=== PATIENT | female | born 1935 | race Caucasian/White ===

== ENCOUNTER 2018-02-16 08:05 | Outpatient (CLI) | payer MEDICARE, OTHER, SELFPAY ==
[2018-02-16 08:48] LABS: Abs Immature Grans 0.01 k/cumm (0.0-0.09); Absolute Basophil Count 0.03 k/cumm (0.0-0.2); Absolute Eosinophil Count 0.13 k/cumm (0.0-0.7); Absolute Monocyte Count 0.44 k/cumm (0.11-0.7); Absolute Neutrophil Count 2.88 k/cumm (1.2-6.7); Basophils % 0.4; Eosinophils % 1.9; HCT 41.8 % (36.0-46.0); HGB 13.9 g/dL (12.0-15.5); Immature Grans % 0.1; Lymphocytes % 47.8; Mean Corp. HGB Concentration 33.3 g/dL (32.0-36.0); Mean Corpuscular Hemoglobin 29.6 pg (27.0-33.0); Mean Corpuscular Volume 89.1 fL (80-95); Mean Platelet Volume 8.9 fL (8.0-11.0); Monocytes % 6.6; Neutrophils % 43.2; Platelet Count 313 x1000/uL (130-400); RBC 4.69 m/cumm (4.00-5.20); RBC Distribution Width 12.4 % (11.7-14.6); White Blood Cell Count 6.69 k/cumm (4.4-10.8)
[2018-02-16 09:29] LABS: ALT 29 U/L (12-78); AST 18 U/L (15-37); Albumin 3.8 g/dL (3.4-5.0); Alkaline Phosphatase 61 U/L (46-116); Anion Gap 10.4 mmol/L (3-11); BUN 17 mg/dL (7-18); Bilirubin, Total 0.9 mg/dL (0.2-1.0); CO2 27.6 mmol/L (21.0-32.0); CREATININE 0.81 mg/dL (0.55-1.02); Calcium 9.3 mg/dL (8.5-10.1); Chloride 103 mmol/L (98-107); Cholesterol 146 mg/dL (50-200); Glucose 120 mg/dL (70-100); HDL Cholesterol 60 mg/dL (40-60); LDL CHOLESTEROL 68 mg/dL (<100); Sodium 141 mmol/L (136-145); Total Protein 7.1 g/dL (6.4-8.2); Triglyceride 116 mg/dL (30-150)
== END 2018-02-16 08:25 ==
PROVIDERS: PCP Family Medicine; Visit Provider Family Medicine
DX: D64.9 Anemia, unspecified (principal); E78.5 Hyperlipidemia, unspecified
CPT/HCPCS: 36415; 80053; 80061; 83721; 85025

== ENCOUNTER 2018-05-16 14:06 | Outpatient (CLI) | payer MEDICARE, OTHER, SELFPAY ==
--- NOTE | 2018-05-16 14:24 | DI.CT_ITS ---
SYMPTOM/DIAGNOSIS: HEMOPTYSIS, H/O LUNG CA, H/O MALIGNANT NEOPLASM, Z85.118,R04.2,R93.[address]: CT examination of the chest was performed with a bolus infusion of 70 cc's of Omnipaque 350. Patient reportedly has a history of left thoracotomy for lung carcinoma. Examination is compared with previous chest CT of 04/25/17. Images obtained through the upper abdomen show unremarkable appearance of visualized portions of liver, spleen, kidneys, adrenals and pancreas. There is bilateral apical pleural scarring, unchanged from the previous examination. Left upper lobe resection noted. Areas of nodularity seen in the left upper lung on the previous examination are more prominent on today's examination with the most salient area of new intrapulmonary nodularity now measuring about 11 by 5 mm. in diameter as compared to about 5 by 4 mm. in diameter on the previous examination. No gross new mediastinal adenopathy is seen. The largest mediastinal node is a 16 mm. pretracheal node which is nonspecific and unchanged from the previous examination. No pleural effusion is seen. No evidence of pulmonary embolic disease or other significant vascular abnormality. No new additional intrapulmonary lesions seen. CONCLUSION: Findings suggesting interval growth of recurrent disease in left lung in a patient who is status post apparent lobectomy for left lung carcinoma.
[2018-05-16] MEDS: Omnipaque 350 MG/ML 100 ML BTL IJ (16:31)
== END 2018-05-16 14:26 ==
PROVIDERS: PCP Family Medicine; Visit Provider Nurse Practitioner
DX: R04.2 Hemoptysis (principal); R91.8 Other nonspecific abnormal finding of lung field; Z90.2 Acquired absence of lung [part of]; Z85.118 Personal history of other malignant neoplasm of bronchus and lung
CPT/HCPCS: 71260; J3490

== ENCOUNTER 2018-06-29 00:52 | Outpatient (CLI) | payer MEDICARE, OTHER, SELFPAY ==
[2018-06-29 13:55] LABS: CREATININE 0.74 mg/dL (0.55-1.02)
== END 2018-06-29 01:12 ==
PROVIDERS: PCP Family Medicine; Visit Provider Radiology Radiation Oncology
DX: R04.2 Hemoptysis (principal); C34.90 Malignant neoplasm of unspecified part of unspecified bronchus or lung
CPT/HCPCS: 36415; 82565

== ENCOUNTER 2018-07-15 17:57 | Emergency (ER) | payer MEDICARE, OTHER, SELFPAY ==
[2018-07-15 18:07] VITALS: BP 165/73; PULSE 103; RESP 20; TEMP 36.3; O2SAT 94
--- NOTE | 2018-07-15 19:24 | W.ED.GENAD ---
Discharge Plan Disposition Patient Disposition: HOME Condition: Stable Discharge Details Chief Complaint: Sorethroat Clinical Impression: Acute streptococcal pharyngitis Primary Care Provider: Lele Cannon ED Provider: Bebe Roberto Home Meds and New Rx's Prescriptions: New amoxicillin 500 mg tablet 500 mg PO BID 10 Days Qty: 20 RF: 0 Continued omeprazole 20 mg capsule,delayed release(DR/EC) 20 mg PO DAILY 90 Days Qty: 90 RF: 3 atorvastatin 10 mg tablet 10 mg PO DAILY 90 Days Qty: 90 RF: 3 aspirin 81 MG tablet,delayed release (DR/EC) 81 mg PO DAILY RF: 0 Discharge Instructions Instructions: Pharyngitis (ED) Additional Instructions: Alternate Tylenol and Motrin as needed and directed for pain. Drink plenty of fluids get plenty of rest. Call the oncology office tomorrow morning to discuss whether you can receive your radiation treatment tomorrow. It is possible that you will be unable to receive this tomorrow due to your current strep throat infection. Return immediately to the emergency department with any worsening or new concerning symptoms. Discharge Data Discharge Physician: Bebe Roberto Medical Decision Making 82-year-old female with a history of lung cancer currently undergoing radiation therapy since last week who presents with dryness and postnasal drip in the back of her throat, and sore throat for 1 week, symptoms getting progressively worse. Patient denies any fever and states she has been eating and drinking normally without shortness of breath. Blood pressure hypertensive on arrival. Remainder of vitals within normal limits. Afebrile. Normal respiratory rate and oxygen saturation upon my evaluation. Patient appears nontoxic, speaking in full sentences, no drooling, no submandibular swelling. She has a mild posterior pharyngeal erythema but no exudates, uvula midline, no peritonsillar abscess. Lungs clear to auscultation. Rapid strep positive. Discussed with patient that due to her history, I would be concerned about possible worsening symptoms, but at this time she appears nontoxic and comfortable and reassuring that she has no fever and eating and drinking well. She states her next radiation treatment is planned for tomorrow. She is instructed that she possibly will have to hold on this treatment due to her current strep infection. Will give 1 dose of amoxicillin here, 1 dose for home, as well as prescription. She is instructed to call her oncology office tomorrow morning to discuss plan regarding further radiation treatments. She is instructed to return here immediately with any worsening or new concerning symptoms. Medical Records Medical records reviewed: Yes I reviewed the patient's medical records. Lab Data Lab results reviewed: Yes I reviewed the patient's lab results. Rapid strep positive. HPI General Mode of arrival: ambulatory. Date/Time Provider Initiated Documentation: 07/15/18 18:14. Limitations to Documentation: no limitations. Information obtained by: patient. HPI Narrative: Patient is an 82-year-old female who presents to the ED with a complaint of dryness in the back of her throat, postnasal drip, and sore throat for the past week, getting progressively worse. She states she has been taking Sudafed for symptoms. She also admits to cough with light yellow sputum. She states she has a history of lung cancer for which she is receiving radiation to her chest. She states her first radiation treatment was last Monday. She denies any fever, shortness of breath, chest pain he states she has been eating and drinking normally. Related Data Home Medications Medication Instructions Recorded Confirmed aspirin 81 mg PO DAILY tab 03/20/17 07/15/18 atorvastatin 10 mg tablet 10 mg PO DAILY 90 Days #90 tab 02/12/18 07/15/18 omeprazole 20 mg capsule,delayed 20 mg PO DAILY 90 Days #90 cap 02/12/18 07/15/18 release amoxicillin 500 mg PO BID 10 Days #20 tab 07/15/18 Previous Rx's Medication Instructions Recorded atorvastatin 10 mg tablet 10 mg PO DAILY 90 Days #90 tab 02/12/18 omeprazole 20 mg capsule,delayed 20 mg PO DAILY 90 Days #90 cap 02/12/18 release amoxicillin 500 mg PO BID 10 Days #20 tab 07/15/18 Allergies Allergy/AdvReac Type Severity Reaction Status Date / Time No Known Allergies Allergy Verified 07/15/18 18:14 General Stated Complaint: Sorethroat FARNAZ: 4 Review of Systems Review of Systems All systems reviewed & are unremarkable except as noted in HPI and below Constitutional Reports as per HPI, Denies chills and Denies fever(s) Eyes Denies blurry vision ENT Denies dizziness, Reports nasal congestion, Reports nasal discharge, Reports post nasal drip, Reports sore throat and Denies throat swelling Cardiovascular Denies chest pain and Denies dyspnea Respiratory Reports cough and Denies dyspnea Gastrointestinal Denies abdominal pain, Denies diarrhea and Denies vomiting Genitourinary Denies hematuria and Denies dysuria Musculoskeletal Denies back pain and Denies numbness Integumentary/Breasts Denies lesions and Denies rash Neurologic Denies dizziness, Denies focal weakness and Denies numbness Allergic/Immunologic Denies throat swelling [facility] Medical History Pulmonary nodule (Chronic 03/07/17) 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) Anemia (Resolved 03/07/17) Surgical History (L)Lingulectomy(Segmentectomy) (11/11/14) Appendectomy (~1969) Cholecystectomy (~2007) Family History Mother Stroke Father Stroke Sister Diabetes Social History Smoking/Tobacco Use Status: Former Tobacco Use Alcohol Intake: current Alcohol Intake frequency: holidays/special occasions only Alcohol type: beer and wine Drug use: Never Substance use type: does not use Housing: house Number of Children: 0 What type of physical activity do you participate in: regular exercise and other Details: dances Frequency: 3-4 times per week Seatbelt use: always Drive intox 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 Working smoke detector in home: Yes Fire extinguisher in home: Yes Carbon monox detector in home: Yes Do you feel safe at home: Yes Do you feel safe in your relationship?: Yes Exam Const General: cooperative and healthy appearing Orientation: alert and awake [facility] Head: normal to inspection Ears: hearing grossly normal bilaterally, external ears normal and other (Left TM normal to inspection, right TM obscured by cerumen) General nose exam: external nose normal Face and sinus: normal facial exam Mouth: oral mucosae normal Teeth and gingiva: dentition normal Throat: uvula midline, no peritonsillar masses and posterior oropharynx abnormal erythema; no cobblstoning, no edema and no exudates Eyes General: appearance normal, both eyes and all related structures Eyelids: eyelids normal EOM: EOM intact bilaterally Neck Neck: normal visual inspection Lymphatic: no lymphadenopathy noted Chest Chest: normal inspection of the chest Resp Effort & Inspection: normal respiratory effort and able to speak in complete sentences Auscultation: clear to auscultation bilaterally Cardio Rate: regular rate Rhythm: regular rhythm GI Inspection: normal to inspection Palpation: soft, not firm, no guarding, no hepatosplenomegaly, no masses and nontender Auscultation: normal bowel sounds Skin General skin exam: no rashes or lesions noted Neuro General: alert and awake Cognition: normal cognition Speech: speech normal Gait: normal gait Motor: muscle tone normal throughout Sensory Exam: no sensory deficits noted Extrem General: normal to inspection, full ROM and no edema Psych Appearance: grossly normal Mental Status: mental status grossly normal Speech and Movement: speech and movement normal Affect: normal affect Thought Process: normal Course Vital Signs Temperature 97.3 F L 07/15/18 18:07 Pulse 103 H 07/15/18 18:07 Respiratory Rate 20 07/15/18 18:07 Blood Pressure 165/73 H 07/15/18 18:07 Pulse Oximetry 94 L 07/15/18 18:07 Temperature 97.3 F L 07/15/18 18:07 Temperature Source Skin 07/15/18 18:07 Pulse 103 H 07/15/18 18:07 Respiratory Rate 20 07/15/18 18:07 Respiratory Effort 07/15/18 18:28 Blood Pressure 165/73 H 07/15/18 18:07 Blood Pressure Position Sitting 07/15/18 18:07 Pulse Oximetry 94 L 07/15/18 18:07 Oxygen Delivery Method Room Air 07/15/18 18:07 Oxygen Flow Rate 0 07/15/18 18:07 Pain Level 6 07/15/18 18:07 Lab/Test Results Lab/Test Results: POC Strep Test-RODRIGO(Rapid) Start: 07/15/18 18:17 Freq: Status: Active Protocol: Document 07/15/18 18:23 (Rec: 07/15/18 18:23 [email or web address]) Strep test-RODRIGO(Rapid)-POC POC-Strep test-RODRIGO (Rapid) Positive POC-Strep test-RODRIGO (Rapid) Positive
--- NOTE | 2018-07-15 19:29 | ED.GENADUL_ITS ---
Discharge Plan Disposition Patient Disposition: HOME Condition: Stable Discharge Details Chief Complaint: Sorethroat Clinical Impression: Acute streptococcal pharyngitis Primary Care Provider: Lele Cannon ED Provider: Bebe Roberto Home Meds and New Rx's Prescriptions: New amoxicillin 500 mg tablet 500 mg PO BID 10 Days Qty: 20 RF: 0 Continued omeprazole 20 mg capsule,delayed release(DR/EC) 20 mg PO DAILY 90 Days Qty: 90 RF: 3 atorvastatin 10 mg tablet 10 mg PO DAILY 90 Days Qty: 90 RF: 3 aspirin 81 MG tablet,delayed release (DR/EC) 81 mg PO DAILY RF: 0 Discharge Instructions Instructions: Pharyngitis (ED) Additional Instructions: Alternate Tylenol and Motrin as needed and directed for pain. Drink plenty of fluids get plenty of rest. Call the oncology office tomorrow morning to discuss whether you can receive your radiation treatment tomorrow. It is possible that you will be unable to receive this tomorrow due to your current strep throat infection. Return immediately to the emergency department with any worsening or new concerning symptoms. Discharge Data Discharge Physician: Bebe Roberto Medical Decision Making 82-year-old female with a history of lung cancer currently undergoing radiation therapy since last week who presents with dryness and postnasal drip in the back of her throat, and sore throat for 1 week, symptoms getting progressively worse. Patient denies any fever and states she has been eating and drinking normally without shortness of breath. Blood pressure hypertensive on arrival. Remainder of vitals within normal limits. Afebrile. Normal respiratory rate and oxygen saturation upon my evaluation. Patient appears nontoxic, speaking in full sentences, no drooling, no submandibular swelling. She has a mild posterior pharyngeal erythema but no exudates, uvula midline, no peritonsillar abscess. Lungs clear to auscultation. Rapid strep positive. Discussed with patient that due to her history, I would be concerned about possible worsening symptoms, but at this time she appears nontoxic and comfortable and reassuring that she has no fever and eating and drinking well. She states her next radiation treatment is planned for tomorrow. She is instructed that she possibly will have to hold on this treatment due to her current strep infection. Will give 1 dose of amoxicillin here, 1 dose for home, as well as prescription. She is instructed to call her oncology office tomorrow morning to discuss plan regarding further radiation treatments. She is instructed to return here immediately with any worsening or new concerning symptoms. Medical Records Medical records reviewed: Yes I reviewed the patient's medical records. Lab Data Lab results reviewed: Yes I reviewed the patient's lab results. Rapid strep positive. HPI General Mode of arrival: ambulatory . Date/Time Provider Initiated Documentation: 07/15/18 18:14 . Limitations to Documentation: no limitations . Information obtained by: patient . HPI Narrative: Patient is an 82-year-old female who presents to the ED with a complaint of dryness in the back of her throat, postnasal drip, and sore throat for the past week, getting progressively worse. She states she has been taking Sudafed for symptoms. She also admits to cough with light yellow sputum. She states she has a history of lung cancer for which she is receiving radiation to her chest. She states her first radiation treatment was last Monday. She denies any fever, shortness of breath, chest pain he states she has been eating and drinking normally. Related Data Home Medications Medication Instructions Recorded Confirmed aspirin 81 mg PO DAILY tab 03/20/17 07/15/18 atorvastatin 10 mg tablet 10 mg PO DAILY 90 Days #90 tab 02/12/18 07/15/18 omeprazole 20 mg capsule,delayed 20 mg PO DAILY 90 Days #90 cap 02/12/18 07/15/18 release amoxicillin 500 mg PO BID 10 Days #20 tab 07/15/18 Previous Rx's Medication Instructions Recorded atorvastatin 10 mg tablet 10 mg PO DAILY 90 Days #90 tab 02/12/18 omeprazole 20 mg capsule,delayed 20 mg PO DAILY 90 Days #90 cap 02/12/18 release amoxicillin 500 mg PO BID 10 Days #20 tab 07/15/18 Allergies Allergy/AdvReac Type Severity Reaction Status Date / Time No Known Allergies Allergy Verified 07/15/18 18:14 General Stated Complaint: Sorethroat FARNAZ: 4 Review of Systems Review of Systems All systems reviewed & are unremarkable except as noted in HPI and below Constitutional Reports as per HPI, Denies chills and Denies fever(s) Eyes Denies blurry vision ENT Denies dizziness, Reports nasal congestion, Reports nasal discharge, Reports post nasal drip, Reports sore throat and Denies throat swelling Cardiovascular Denies chest pain and Denies dyspnea Respiratory Reports cough and Denies dyspnea Gastrointestinal Denies abdominal pain, Denies diarrhea and Denies vomiting Genitourinary Denies hematuria and Denies dysuria Musculoskeletal Denies back pain and Denies numbness Integumentary/Breasts Denies lesions and Denies rash Neurologic Denies dizziness, Denies focal weakness and Denies numbness Allergic/Immunologic Denies throat swelling [facility] Medical History Pulmonary nodule (Chronic 03/07/17) 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) Anemia (Resolved 03/07/17) Surgical History (L)Lingulectomy(Segmentectomy) (11/11/14) Appendectomy (~1969) Cholecystectomy (~2007) Family History Mother Stroke Father Stroke Sister Diabetes Social History Smoking/Tobacco Use Status: Former Tobacco Use Alcohol Intake: current Alcohol Intake frequency: holidays/special occasions only Alcohol type: beer and wine Drug use: Never Substance use type: does not use Housing: house Number of Children: 0 What type of physical activity do you participate in: regular exercise and other Details: dances Frequency: 3-4 times per week Seatbelt use: always Drive 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 Working smoke detector in home: Yes Fire extinguisher in home: Yes Carbon monox detector in home: Yes Do you feel safe at home: Yes Do you feel safe in your relationship?: Yes Exam Const General: cooperative and healthy appearing Orientation: alert and awake [facility] Head: normal to inspection Ears: hearing grossly normal bilaterally, external ears normal and other (Left TM normal to inspection, right TM obscured by cerumen) General nose exam: external nose normal Face and sinus: normal facial exam Mouth: oral mucosae normal Teeth and gingiva: dentition normal Throat: uvula midline, no peritonsillar masses and posterior oropharynx abnormal erythema; no cobblstoning, no edema and no exudates Eyes General: appearance normal, both eyes and all related structures Eyelids: eyelids normal EOM: EOM intact bilaterally Neck Neck: normal visual inspection Lymphatic: no lymphadenopathy noted Chest Chest: normal inspection of the chest Resp Effort & Inspection: normal respiratory effort and able to speak in complete sentences Auscultation: clear to auscultation bilaterally Cardio Rate: regular rate Rhythm: regular rhythm GI Inspection: normal to inspection Palpation: soft, not firm, no guarding, no hepatosplenomegaly, no masses and nontender Auscultation: normal bowel sounds Skin General skin exam: no rashes or lesions noted Neuro General: alert and awake Cognition: normal cognition Speech: speech normal Gait: normal gait Motor: muscle tone normal throughout Sensory Exam: no sensory deficits noted Extrem General: normal to inspection, full ROM and no edema Psych Appearance: grossly normal Mental Status: mental status grossly normal Speech and Movement: speech and movement normal Affect: normal affect Thought Process: normal Course Vital Signs Temperature 97.3 F L 07/15/18 18:07 Pulse 103 H 07/15/18 18:07 Respiratory Rate 20 07/15/18 18:07 Blood Pressure 165/73 H 07/15/18 18:07 Pulse Oximetry 94 L 07/15/18 18:07 Temperature 97.3 F L 07/15/18 18:07 Temperature Source Skin 07/15/18 18:07 Pulse 103 H 07/15/18 18:07 Respiratory Rate 20 07/15/18 18:07 Respiratory Effort 07/15/18 18:28 Blood Pressure 165/73 H 07/15/18 18:07 Blood Pressure Position Sitting 07/15/18 18:07 Pulse Oximetry 94 L 07/15/18 18:07 Oxygen Delivery Method Room Air 07/15/18 18:07 Oxygen Flow Rate 0 07/15/18 18:07 Pain Level 6 07/15/18 18:07 Lab/Test Results Lab/Test Results: POC Strep Test-RODRIGO(Rapid) Start: 07/15/18 18:17 Freq: Status: Active Protocol: Document 07/15/18 18:23 (Rec: 07/15/18 18:23 [email or web address]) Strep test-RODRIGO(Rapid)-POC POC-Strep test-RODRIGO (Rapid) Positive POC-Strep test-RODRIGO (Rapid) Positive
[2018-07-15] MEDS: Amoxicillin 500 MG CAP PO ×2 (19:50)
[2018-07-15 19:51] VITALS: BP 165/73; PULSE 90; RESP 20; TEMP 36.7; O2SAT 96
== END 2018-07-15 19:58 | disposition home or self-care (01) ==
PROVIDERS: Emergency Provider Physician Assistant; PCP Family Medicine
DX: J02.0 Streptococcal pharyngitis (principal); C34.10 Malignant neoplasm of upper lobe, unspecified bronchus or lung; Z92.3 Personal history of irradiation
CPT/HCPCS: 87880; 99283

== ENCOUNTER 2018-12-17 10:27 | Outpatient (CLI) | payer MEDICARE, OTHER, SELFPAY ==
[2018-12-17 11:45] LABS: Estimated GFR 59.94 (mL/min/1.73m2)
== END 2018-12-17 10:47 ==
PROVIDERS: PCP Family Medicine; Visit Provider Radiology Radiation Oncology
DX: C34.92 Malignant neoplasm of unspecified part of left bronchus or lung (principal)
CPT/HCPCS: 36415; 82565

== ENCOUNTER 2018-12-18 00:15 | Outpatient (CLI) | payer MEDICARE, OTHER, SELFPAY ==
[2018-12-18] MEDS: Omnipaque 350 MG/ML 100 ML BTL IJ (09:14)
--- NOTE | 2018-12-18 09:15 | DI.CT_ITS ---
SYMPTOM/DIAGNOSIS: RECURRENT NON SMALL CELL LUNG CANCER C34.90, RESTAGING CT CHEST S/P LINGULA RESECTION. CHEST CT: 12/18 CT examination of the chest was performed with a bolus infusion of 70 cc Omnipaque 350. The patient reportedly has a history of non small cell lung carcinoma and examination is compared with most recent previous CT of 05/16/2018. Images obtained through the upper abdomen show unremarkable appearance of visualized portions of adrenals, kidneys and liver except for borderline biliary dilatation, this is presumably related to prior cholecystectomy. Spleen shows subcapsular decreased attenuation unchanged from the previous study. The patient has reportedly had a prior lingular resection. In comparison with the examination of 05/16/18 there are increasing areas of consolidation in the left lung laterally, in the mid and upper lung region. Pleural based radiodensities are also noted which were not present on the previous examination. Correlation requested regarding any interval surgery since 05/16/18. The findings as described may represent infectious process or multi centric recurrent disease. No gross pleural effusions seen. No new right pulmonary mass. Mild pre-tracheal and AP window adenopathy again noted, unchanged from previous examination. No evidence of pulmonary embolic disease or other major vascular abnormality. No axillary or supraclavicular adenopathy. Tracheobronchial tree appears intact. CONCLUSION: 1. Stable mild mediastinal adenopathy most marked in AP window and pretracheal nodes 2. Increasing multi centric consolidation atelectasis and/or scarring with new pleural densities also noted in left lung in a patient who is status post resection of non small cell lung carcinoma.
== END 2018-12-18 00:35 ==
PROVIDERS: PCP Family Medicine; Visit Provider Radiology Radiation Oncology
DX: C34.92 Malignant neoplasm of unspecified part of left bronchus or lung (principal); R59.0 Localized enlarged lymph nodes; R91.8 Other nonspecific abnormal finding of lung field; Z90.2 Acquired absence of lung [part of]
CPT/HCPCS: 71260; J3490

== ENCOUNTER 2019-01-18 11:35 | Emergency (ER) | payer MEDICARE, OTHER, SELFPAY ==
[2019-01-18 11:39] VITALS: BP 176/88; PULSE 114; RESP 28; TEMP 36.3; O2SAT 95
--- NOTE | 2019-01-18 11:45 | W.ED.GENAD ---
Discharge Plan Disposition Patient Disposition: HOME Condition: Improving Discharge Details Chief Complaint: SOB Clinical Impression: Acute bronchitis, Sinusitis Primary Care Provider: Lele Cannon ED Provider: Bebe Roberto Home Meds and New Rx's Prescriptions: New prednisone 20 mg tablet See Rx Instructions .ROUTE .COMPLEX Qty: 12 RF: 0 doxycycline hyclate 100 mg tablet 100 mg PO BID 7 Days Qty: 14 RF: 0 Continued omeprazole 20 mg capsule,delayed release(DR/EC) 20 mg PO DAILY 90 Days Qty: 90 RF: 3 atorvastatin 10 mg tablet 10 mg PO DAILY 90 Days Qty: 90 RF: 3 aspirin 81 MG tablet,delayed release (DR/EC) 81 mg PO DAILY RF: 0 Discharge Instructions Instructions: Sinusitis (ED), Acute Bronchitis (ED) Additional Instructions: Use the albuterol inhaler as needed and directed for shortness of breath or wheezing. Take the steroids until finished. If you have no relief or worsening of symptoms in the next 2 days, start the antibiotics. You can also try [id number] saline nasal spray or sinus rinse kit. Follow-up with your primary care doctor in 1 week for reevaluation. Return to the emergency department he develop any worsening or new concerning symptoms. Discharge Data Discharge Physician: Bebe Roberto Medical Decision Making 1145 -- 83-year-old female with a history of lung cancer treated with surgery and radiation, last radiation in July presents with shortness of breath for the past week, worse since last night along with cough with white sputum production and sinus congestion. Denies any known fever. Heart rate 110s on arrival, now within normal limits. Afebrile. She appears in no acute respiratory distress. She has scattered wheezing throughout. No leg swelling. Differential diagnosis includes COPD, bronchitis, pneumonia, PE. Presentation does not appear consistent with ACS. EKG notes a rate of 101, sinus, PVCs with no acute ST ischemic changes. Will place an IV, labs, CT chest and give a DuoNeb and Solu-Medrol and reassess. 1445 --labs and imaging reviewed. White blood cell count 7. Normal electrolytes. Troponin negative. BNP within normal limits. CT chest notes findings consistent with previous left upper lobectomy but no PE or pneumonia. Patient states she feels much better. Vitals within normal limits. O2 sat 93% on room air. She has no complaints of difficulty breathing at this time. She is requesting to go home. We will send home with a prescription for prednisone as well as given albuterol inhaler. Discussed that her symptoms do not appear bacterial in nature, but considering her history and complaints, we will send with a prescription for doxycycline to start in the next 2 days if symptoms do not improve or worsen. She is advised to follow-up with her primary care doctor for reevaluation and to return here if worse. Medical Records Medical records reviewed: Yes I reviewed the patient's medical records. Imaging Data Radiologic Study: Radiologist's impression: CT CHEST PE CTA CLINICAL HISTORY: cough, SOB, r/o PE/pneumonia. TECHNIQUE: PE CT was performed with an intravenous injection of 70 cc of Omnipaque 350. COMPARISON: CT CHEST W from 12/18/2018 FINDINGS: Compared with the prior examination, again noted is the left upper lobe scarring and postsurgical changes in connection with removal of a non-small cell carcinoma. There has been no change in the status of the mediastinal lymph nodes. Emphysematous changes are noted throughout the lungs and there are ground-glass densities in the lung bases, which is a nonspecific finding. There is no evidence of pulmonary embolic disease. There is no pleural effusion. Heart is not enlarged. Diffuse atherosclerotic changes are noted involving the aorta without evidence of an aneurysm or dissection. There is no evidence of an acute bony abnormality and mild degenerative changes involving the dorsal spine are noted. IMPRESSION: No evidence of PE. No evidence of acute cardiopulmonary disease in this patient who is status post left upper lobe surgery for removal of a non-small cell carcinoma. Lab Data Lab results reviewed: Yes I reviewed the patient's lab results. Labs: Laboratory Tests Range/Units 01/18/19 01/18/19 01/18/19 11:45 11:45 11:45 WBC (4.4-10.8) k/cumm 7.41 RBC (4.00-5.20) m/cumm 5.06 Hgb (12.0-15.5) g/dL 14.7 Hct (36.0-46.0) % 44.9 MCV (80-95) fL 88.7 MCH (27.0-33.0) pg 29.1 MCHC (32.0-36.0) g/dL 32.7 RDW (11.7-14.6) % 12.9 Plt Count (130-400) x1000/uL 191 MPV (8.0-11.0) fL 11.2 H Immature Gran % 0.1 Neutrophils % 52.9 Lymphocytes % 37.0 Monocytes % 7.8 Eosinophils % 1.8 Basophils % 0.4 Absolute Neutrophils (1.2-6.7) k/cumm 3.92 Absolute Lymphocytes (1.2-3.4) k/cumm 2.74 Absolute Monocytes (0.11-0.7) k/cumm 0.58 Absolute Eosinophils (0.0-0.7) k/cumm 0.13 Absolute Basophils (0.0-0.2) k/cumm 0.03 Sodium (136-145) mmol/L 141 Potassium (3.5-5.1) mmol/L 3.7 Chloride (98-107) mmol/L 100 Carbon Dioxide (21.0-32.0) mmol/L 31.1 Anion Gap (3-11) mmol/L 9.9 BUN (7-18) mg/dL 14 Creatinine (0.55-1.02) mg/dL 0.78 Estimated GFR/1.73 m2 (mL/min/1.73m2) >= 60.00 Glucose (70-100) mg/dL 137 H Calcium (8.5-10.1) mg/dL 9.1 Magnesium (1.8-2.4) mg/dL 1.7 L Total Bilirubin (0.2-1.0) mg/dL 0.8 AST (15-37) U/L 21 ALT (14-59) U/L 25 Alkaline Phosphatase (46-116) U/L 89 Troponin I (0.00-0.06) ng/mL < 0.05 NT-Pro-B Natriuret Pep ( - 299) pg/mL 69 Total Protein (6.4-8.2) g/dL 8.6 H Albumin (3.4-5.0) g/dL 4.5 ECG Data Attestation: I personally reviewed and interpreted this ECG (s) as follows: Interpretation: Rate of 101, sinus, PVCs. No acute ST elevation or depression. ID 128. QTc 441. QRS 88. HPI General Mode of arrival: ambulatory. Date/Time Provider Initiated Documentation: 01/18/19 11:41. Limitations to Documentation: no limitations. Information obtained by: patient. HPI Narrative: Pt is a 83yo F with a history of lung cancer treated with surgery and radiation who presents with shortness of breath for the past week, worse since last night. She also admits to cough productive of white sputum. She also admits to sinus congestion and clear nasal discharge. She states her shortness of breath is worse with exertion. She denies any known fever, nausea, vomiting, chest pain, leg pain or swelling, recent travel or recent surgery. She states her last radiation treatment was in July and she is followed by Dr. Hartley. She denies any shortness of breath or chest pain at present. She denies any history of previous chemotherapy. Related Data Home Medications Medication Instructions Recorded Confirmed aspirin 81 mg PO DAILY tab 03/20/17 01/18/19 atorvastatin 10 mg tablet 10 mg PO DAILY 90 Days #90 tab 02/12/18 01/18/19 omeprazole 20 mg capsule,delayed 20 mg PO DAILY 90 Days #90 cap 02/12/18 01/18/19 release doxycycline hyclate 100 mg PO BID 7 Days #14 tab 01/18/19 prednisone See Rx Instructions .ROUTE 01/18/19 .COMPLEX #12 tab Previous Rx's Medication Instructions Recorded atorvastatin 10 mg tablet 10 mg PO DAILY 90 Days #90 tab 02/12/18 omeprazole 20 mg capsule,delayed 20 mg PO DAILY 90 Days #90 cap 02/12/18 release doxycycline hyclate 100 mg PO BID 7 Days #14 tab 01/18/19 prednisone See Rx Instructions .ROUTE 01/18/19 .COMPLEX #12 tab Allergies Allergy/AdvReac Type Severity Reaction Status Date / Time No Known Allergies Allergy Verified 01/18/19 11:52 General Stated Complaint: SOB FARNAZ: 2 Review of Systems Review of Systems ROS Unobtainable: All systems reviewed & are unremarkable except as noted in HPI and below Constitutional Constitutional: Reports as per HPI, Denies chills and Denies fever(s) Eyes Eyes: Denies blurry vision ENT Ears, Nose, Mouth, and Throat: Denies dizziness, Reports nasal congestion, Reports nasal discharge, Reports sinus pain, Denies sore throat and Denies throat swelling Cardiovascular Cardiovascular: Denies chest pain and Reports dyspnea Respiratory Respiratory: Reports cough and Reports dyspnea Gastrointestinal Gastrointestinal: Denies abdominal pain, Denies diarrhea and Denies vomiting Genitourinary Genitourinary: Denies hematuria and Denies dysuria Musculoskeletal Musculoskeletal: Denies back pain and Denies numbness Integumentary/Breasts Skin/Breast: Denies lesions and Denies rash Neurologic Neurologic: Denies dizziness, Denies focal weakness and Denies numbness Allergic/Immunologic Allergic/Immunologic: Denies throat swelling [facility] Social History Smoking/Tobacco Use Status: Former Tobacco Use Alcohol Intake: current Alcohol Intake frequency: holidays/special occasions only Alcohol type: beer and wine Drug use: Never Substance use type: does not use Housing: house Number of Children: 0 What type of physical activity do you participate in: regular exercise and other Details: dances Frequency: 3-4 times per week Seatbelt use: always Drive intox or ride w/intox auto carrier driver: No Working smoke detector in home: Yes Fire extinguisher in home: Yes Carbon monox detector in home: Yes Do you feel safe at home: Yes Do you feel safe in your relationship?: Yes Exam Const General: cooperative, healthy appearing and no acute distress HENMT Head: normal to inspection Ears: hearing grossly normal bilaterally and TM's normal bilaterally General nose exam: external nose normal Face and sinus: normal facial exam and sinuses nontender Mouth: oral mucosae normal Throat: posterior oropharynx normal Eyes General: appearance normal, both eyes and all related structures Pupils: PERRL EOM: EOM intact bilaterally Neck Neck: normal visual inspection and No submandibular swelling Lymphatic: no lymphadenopathy noted Chest Chest: normal inspection of the chest and no tenderness Resp Effort & Inspection: normal respiratory effort and able to speak in complete sentences Auscultation: no crackles, no rales, no rhonchi and wheezes scattered wheezes Cardio Rate: tachycardic Rhythm: regular rhythm GI Inspection: normal to inspection Palpation: soft, not firm, not rigid and nontender Auscultation: normal bowel sounds Skin General skin exam: no rashes or lesions noted Neuro General: alert, awake and oriented x3 Cognition: normal cognition Speech: speech normal Motor: muscle tone normal throughout Sensory Exam: no sensory deficits noted Extrem General: normal to inspection, full ROM, normal capillary refill, no calf tenderness bilaterally and no edema Psych Appearance: grossly normal Mental Status: mental status grossly normal Speech and Movement: speech and movement normal Affect: normal affect Course Vital Signs Vital signs: Vital Signs Temperature 97.3 F L 01/18/19 11:39 Pulse 114 H 01/18/19 11:39 Respiratory Rate 28 H 01/18/19 11:39 Blood Pressure 176/88 H 01/18/19 11:39 Pulse Oximetry 95 01/18/19 11:39 Temperature 97.3 F L 01/18/19 11:39 Pulse 114 H 01/18/19 11:39 Respiratory Rate 28 H 01/18/19 11:39 Blood Pressure 176/88 H 01/18/19 11:39 Pulse Oximetry 95 01/18/19 11:39 Oxygen Delivery Method Room Air 01/18/19 11:39 Oxygen Flow Rate 0 01/18/19 11:39 Pain Level 0 01/18/19 11:39
[2019-01-18 11:50] VITALS: RESP 16
[2019-01-18 12:06] LABS: Abs Immature Grans 0.01 k/cumm (0.0-0.09); Absolute Basophil Count 0.03 k/cumm (0.0-0.2); Absolute Eosinophil Count 0.13 k/cumm (0.0-0.7); Absolute Lymphocyte Count 2.74 k/cumm (1.2-3.4); Absolute Monocyte Count 0.58 k/cumm (0.11-0.7); Absolute Neutrophil Count 3.92 k/cumm (1.2-6.7); Basophils % 0.4; Eosinophils % 1.8; HCT 44.9 % (36.0-46.0); HGB 14.7 g/dL (12.0-15.5); Immature Grans % 0.1; Mean Corp. HGB Concentration 32.7 g/dL (32.0-36.0); Mean Corpuscular Hemoglobin 29.1 pg (27.0-33.0); Mean Corpuscular Volume 88.7 fL (80-95); Mean Platelet Volume 11.2 fL (8.0-11.0); Monocytes % 7.8; Neutrophils % 52.9; Platelet Count 191 x1000/uL (130-400); RBC 5.06 m/cumm (4.00-5.20); RBC Distribution Width 12.9 % (11.7-14.6); White Blood Cell Count 7.41 k/cumm (4.4-10.8)
--- NOTE | 2019-01-18 12:12 | DI.CT_ITS ---
EXAM: CT CHEST PE CTA CLINICAL HISTORY: cough, SOB, r/o PE/pneumonia. TECHNIQUE: PE CT was performed with an intravenous injection of 70 cc of Omnipaque 350. COMPARISON: CT CHEST W from 12/18/2018 FINDINGS: Compared with the prior examination, again noted is the left upper lobe scarring and postsurgical lori nges in connection with removal of a non-small cell carcinoma. There has been no change in the statu s of the mediastinal lymph nodes. Emphysematous changes are noted throughout the lungs and there are ground-glass densities in the lung bases, which is a nonspecific finding. There is no evidence of pu lmonary embolic disease. There is no pleural effusion. Heart is not enlarged. Diffuse atherosclero tic changes are noted involving the aorta without evidence of an aneurysm or dissection. There is no evidence of an acute bony abnormality and mild degenerative changes involving the dorsal spine are n oted. IMPRESSION: No evidence of PE. No evidence of acute cardiopulmonary disease in this patient who is status post l eft upper lobe surgery for removal of a non-small cell carcinoma.
[2019-01-18 12:31] LABS: Magnesium 1.7 mg/dL (1.8-2.4); NT-proBNP 69 pg/mL
[2019-01-18 12:33] LABS: Troponin I < 0.05 ng/mL (0.00-0.06)
[2019-01-18 12:37] VITALS: RESP 1
[2019-01-18] MEDS: Albuterol/Ipratropium 3 ML UPD VIAL UPD (12:37)
[2019-01-18] MEDS: methylPREDNISolone SUCC 125 MG VIAL IVP (12:37)
[2019-01-18 12:50] LABS: ALT 25 U/L (14-59); AST 21 U/L (15-37); Albumin 4.5 g/dL (3.4-5.0); Alkaline Phosphatase 89 U/L (46-116); Anion Gap 9.9 mmol/L (3-11); BUN 14 mg/dL (7-18); Bilirubin, Total 0.8 mg/dL (0.2-1.0); CO2 31.1 mmol/L (21.0-32.0); CREATININE 0.78 mg/dL (0.55-1.02); Calcium 9.1 mg/dL (8.5-10.1); Chloride 100 mmol/L (98-107); Glucose 137 mg/dL (70-100); Potassium 3.7 mmol/L (3.5-5.1); Sodium 141 mmol/L (136-145); Total Protein 8.6 g/dL (6.4-8.2)
[2019-01-18] MEDS: Omnipaque 350 MG/ML 100 ML BTL IJ (13:48)
--- NOTE | 2019-01-18 14:53 | NUR.NOTE ---
Nursing Note: see printed flow sheet for vitals unable to import. stable.
[2019-01-18 14:54] VITALS: BP 137/80; PULSE 99; RESP 16; O2SAT 94
[2019-01-18] MEDS: Albuterol HFA 8 GM 60 PUFF INH IH (15:23)
--- NOTE | 2019-01-18 15:31 | NUR.NOTE ---
Nursing Note: provided pt with a spacer and instructions.
== END 2019-01-18 15:34 | disposition home or self-care (01) ==
PROVIDERS: Emergency Provider Physician Assistant; PCP Family Medicine
DX: J20.9 Acute bronchitis, unspecified (principal); J01.90 Acute sinusitis, unspecified; C34.92 Malignant neoplasm of unspecified part of left bronchus or lung; Z87.891 Personal history of nicotine dependence
CPT/HCPCS: 36415; 71275; 80053; 93005; 94640; 96374; 99285; 83735; 83880; 84484; 85025; 93010; J2930; J3490; J7620

== ENCOUNTER 2019-02-18 12:20 | Outpatient (REF) | payer MEDICARE, OTHER, SELFPAY ==
--- NOTE | 2019-02-18 10:44 | SKI_PTH ---
PATIENT: Qing Bailye LOC: [facility] U#:[id number] AGE/SX: 83/F ROOM: RE02/18/[address]: Devan Shah DO : 1935 BED: DIS: 02/18/2019 SPEC #: [id number] RECD: 02/18/19 18:31 STATUS: SRIKANTH REQ #: [id number] STEPHENIE: 02/18/19 10:[address]: Devan Shah DEPT: Surgical Specimen RECD BY: Violet Lock ENTERED: 02/18/19 18:32 SP TYPE: DONALDO COBB DR: Lele Cannon DO Tissues: 1 - SKIN BIOPSY(SHAVE/PUNCH) Procedures: SKIN LEVEL 4 Comments: [id number]
== END 2019-02-18 12:40 ==
LOC: LBN 12:20
PROVIDERS: PCP Family Medicine; Visit Provider Otolaryngology Otolaryngology/Facial Plastic Surgery
DX: C44.41 Basal cell carcinoma of skin of scalp and neck (principal)
CPT/HCPCS: 88305

== ENCOUNTER 2019-03-22 12:36 | Outpatient (CLI) | payer MEDICARE, OTHER, SELFPAY ==
[2019-03-22 13:26] LABS: Abs Immature Grans 0.01 k/cumm (0.0-0.09); Absolute Basophil Count 0.02 k/cumm (0.0-0.2); Absolute Lymphocyte Count 2.55 k/cumm (1.2-3.4); Absolute Monocyte Count 0.53 k/cumm (0.11-0.7); Absolute Neutrophil Count 3.29 k/cumm (1.2-6.7); Basophils % 0.3; Eosinophils % 1.5; HCT 41.6 % (36.0-46.0); HGB 13.5 g/dL (12.0-15.5); Immature Grans % 0.2; Lymphocytes % 39.2; Mean Corp. HGB Concentration 32.5 g/dL (32.0-36.0); Mean Corpuscular Volume 89.5 fL (80-95); Mean Platelet Volume 9.9 fL (8.0-11.0); Monocytes % 8.2; Neutrophils % 50.6; Platelet Count 283 x1000/uL (130-400); RBC 4.65 m/cumm (4.00-5.20); RBC Distribution Width 12.9 % (11.7-14.6)
[2019-03-22 14:50] LABS: ALT 24 U/L (14-59); AST 17 U/L (15-37); Alkaline Phosphatase 74 U/L (46-116); Anion Gap 8.1 mmol/L (3-11); BUN 17 mg/dL (7-18); Bilirubin, Total 0.9 mg/dL (0.2-1.0); CO2 29.9 mmol/L (21.0-32.0); Calcium 9.1 mg/dL (8.5-10.1); Chloride 102 mmol/L (98-107); Glucose 116 mg/dL (74-106); Potassium 4.3 mmol/L (3.5-5.1); Sodium 140 mmol/L (136-145); Total Protein 7.3 g/dL (6.4-8.2)
== END 2019-03-22 12:56 ==
PROVIDERS: PCP Family Medicine; Visit Provider Nurse Practitioner
DX: C34.92 Malignant neoplasm of unspecified part of left bronchus or lung (principal)
CPT/HCPCS: 36415; 80053; 85025

== ENCOUNTER 2019-06-27 00:34 | Outpatient (CLI) | payer MEDICARE, OTHER, SELFPAY ==
--- NOTE | 2019-06-27 | DI.CT_ITS ---
EXAM: CT CHEST WO CLINICAL HISTORY: MALIGNANT NEOPLASM UPPER LOBE LT LUNG, C34.12, HX SBRT FOR NSCLC 12/27 SURVEILLANCE TECHNIQUE: CT examination of the chest was performed without contrast administration. CT CHEST W from 12/18/2018 CT CHEST W from 12/18/2018 FINDINGS: Images obtained through the upper abdomen show a less than 1 cm stable low-attenuation right hepatic lobe lesion and unremarkable appearance of visualized portions of the spleen, adrenals and kidneys. Patient reportedly has a history of left upper lobe lung carcinoma; there have been resections of lef t 6th and 8th ribs. Examination is compared with prior CT of 12/18/2018 and there appears to be incre ased retraction at the presumed tumor in the left upper lobe. No new mass identified. No change in mildly enlarged lymph nodes pretracheal and subcarinal. No pleural effusion. No new intrapulmonary lesion. Severe changes of emphysema and bilateral nodular apical pleural-based radiodensities unchan ged from prior study. IMPRESSION: Findings consistent with increased retraction/fibrosis at tumor site in left upper lobe. This is mos t clearly appreciated on coronal images. No other significant change. No evidence of new disease.
== END 2019-06-27 00:54 ==
PROVIDERS: PCP Family Medicine; Visit Provider Nurse Practitioner
DX: C34.12 Malignant neoplasm of upper lobe, left bronchus or lung (principal); K76.89 Other specified diseases of liver; R59.0 Localized enlarged lymph nodes; J43.8 Other emphysema
CPT/HCPCS: 71250

== ENCOUNTER 2019-08-06 13:41 | Emergency (ER) | payer MEDICARE, OTHER, SELFPAY ==
[2019-08-06 13:48] VITALS: BP 165/81; PULSE 107; RESP 16; TEMP 35.7; O2SAT 97
--- NOTE | 2019-08-06 14:05 | W.ED.GENAD ---
Discharge Plan Disposition Patient Disposition: HOME Condition: Good Discharge Details Chief Complaint: Chest Pain Clinical Impression: Chest pain Primary Care Provider: Lele Cannon ED Provider: Jackson Givens Home Meds and New Rx's Prescriptions: Continued albuterol sulfate 90 mcg/actuation HFA aerosol inhaler 2 puff IH Q6H PRN (Reason: shortness of breath or wheezing) Qty: 18 RF: 0 aspirin 81 MG tablet,delayed release (DR/EC) 81 mg PO DAILY RF: 0 atorvastatin 10 mg tablet 10 mg PO DAILY Qty: 90 RF: 3 omeprazole 20 mg capsule,delayed release(DR/EC) 20 mg PO DAILY Qty: 90 RF: 3 Discharge Instructions Instructions: Chest Pain (ED) Additional Instructions: At this time your chest CT scan shows no change in your cancer, no change or evidence of blood clots, and your heart work-up shows no signs of acute heart attack. Please follow-up closely with your primary care provider and discuss potentially setting up stress test in the future. At this time it does seem that your pain is more likely related to the muscles rather than the heart. If you notice any worsening of your symptoms, or any new symptoms such as vomiting, diarrhea, fever, chills, shortness of breath, chest pain, numbness, weakness, or fainting , please return immediately to the emergency department for reevaluation. Please follow up with your primary care provider as soon as possible for reassessment and reevaluation. As always, it was a pleasure participating in your medical care today. Referrals: Lele Cannon DO [Primary Care Provider] - Discharge Data Discharge Date/Time-TO BE ENTERED AT DEPARTURE: 08/06/19 16:40 Medical Decision Making 83-year-old female with a past medical history of lung cancer, for which she has had surgery, and radiation last time being July 26, as well as a history of chronic chest pain and neck pain who presents today for evaluation of left-sided chest pain. Patient states that for the last 1 to 2 weeks she has had pain in her left chest underneath her left breast, it is improved when she goes to a chiropractor she states. 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 She denies any exertional components, current chest pain, pleuritic chest pain, chest heaviness or chest tightness. Pain is made worse with palpation on the left sternal aspect of the chest. She denies any history of PE. She denies any cough or new shortness of breath. She denies any hemoptysis, fever, chills, numbness, tingling or weakness. She denies any history of cardiac disease. She denies any history of PE. She has no other complaints at this time. Physical exam demonstrates reproducible left-sided chest pain, no signs of shingles. Patient's vital signs are stable. Differential is highest for musculoskeletal etiology, no neurologic deficits on exam. Symptoms unlikely for ACS or PE. Because of history of cancer that we will get a d-dimer. Will evaluate for cardiac etiology get a chest x-ray and reassess. 4:40 PM Patient's laboratory work-up is returned, no white count, no bandemia, d-dimer is elevated, CT angios shows no evidence of PE, previous lung carcinoma is stable, no changes, no new lymphadenopathy. proBNP shows no evidence of heart failure. Troponin less than 0.05. EKG unchanged from prior EKGs. Patient remains asymptomatic currently. With her symptoms lasting greater than a week, no indication for repeat troponin. I did discuss the option of continued observation and monitoring, patient feels very comfortable going home. Discussed the risks and benefits of this. I did recommend that she follow-up closely with her primary care provider and discuss potential outpatient stress testing. At this time with no evidence of dissection PE and new lung cancer pneumonia STEMI or ACS the patient will be discharged home with no evidence of acute life-threatening etiology. Discussed red flags which to return. Signs and symptoms at this time I suspect are likely secondary to the musculoskeletal pain she is commonly had, however this diagnosis certainly has the benefit of an unremarkable work-up. I have extensively reviewed the treatment plan and discharge instructions with the patient. I have addressed all patient concerns at this time. The patient was made aware of what symptoms to monitor for that would warrant a return to the emergency department. Discussed the plan with the patient, they demonstrate verbal understanding and agreement with our assessment and plan at this time. EKG 13: 49 Rate 109, intervals normal, sinus tachycardia, nonspecific less than a millimeter ST depression in V4 V5, no reciprocal elevation, no evidence of STEMI. Previous EKG from 01/18/2019 demonstrates near identical findings, with similar nonspecific ST depressions in V4 and V5. As well as subtle less than a millimeter elevation at that time in V1. No acute changes. FINDINGS: CT angiography of the chest was performed with bolus infusion of 100 cc of Omnipaque 350. There is no evidence of pulmonary embolic disease. Thoracic aorta and major branches appear intact. There is left upper lobe pulmonary scarring from prior lung carcinoma resection, stable appearance from 01/18/2019. No acute consolidation of the lungs. No pleural effusion. No gross change in mildly prominent left hilar and mediastinal lymph nodes, no axillary or supraclavicular adenopathy. Images obtained through the upper abdomen show grossly unremarkable appearance of visualized portions of liver, spleen, kidneys, and adrenals. IMPRESSION: No evidence of acute process. IMPRESSION: Stable appearance of left upper lobe radiodensities in a patient lung carcinoma. No new significant findings. HPI General Date/Time Provider Initiated Documentation: 08/06/19 13:48. HPI Narrative: 83-year-old female with a past medical history of lung cancer, for which she has had surgery, and radiation last time being July 26, as well as a history of chronic chest pain and neck pain who presents today for evaluation of left-sided chest pain. Patient states that for the last 1 to 2 weeks she has had pain in her left chest underneath her left breast, it is improved when she goes to a chiropractor she states. 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 She denies any exertional components, current chest pain, pleuritic chest pain, chest heaviness or chest tightness. Pain is made worse with palpation on the left sternal aspect of the chest. She denies any history of PE. She denies any cough or new shortness of breath. She denies any hemoptysis, fever, chills, numbness, tingling or weakness. She denies any history of cardiac disease. She denies any history of PE. She has no other complaints at this time. Related Data Home Medications Medication Instructions Recorded Confirmed aspirin 81 mg PO DAILY tab 03/20/17 08/06/19 albuterol sulfate 90 mcg/actuation 2 puff IH Q6H PRN #18 gm 01/25/19 08/06/19 aerosol inhaler atorvastatin 10 mg tablet 10 mg PO DAILY #90 tab 03/11/19 08/06/19 omeprazole 20 mg capsule,delayed 20 mg PO DAILY #90 cap 03/11/19 08/06/19 release Previous Rx's Medication Instructions Recorded albuterol sulfate 90 mcg/actuation 2 puff IH Q6H PRN #18 gm 01/25/19 aerosol inhaler atorvastatin 10 mg tablet 10 mg PO DAILY #90 tab 03/11/19 omeprazole 20 mg capsule,delayed 20 mg PO DAILY #90 cap 03/11/19 release Allergies Allergy/AdvReac Type Severity Reaction Status Date / Time No Known Allergies Allergy Verified 08/06/19 13:54 General Stated Complaint: Chest Pain FARNAZ: 2 Review of Systems All systems reviewed & are unremarkable except as noted in HPI and below [facility] Medical History (Updated 08/06/19 @ 16:32 by Jackson Givens DO) Anemia (Resolved 03/07/17) History of basal cell carcinoma (Acute) Dr Pablo Krueger oriental orthodox 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, s/p segmentectomy Pulmonary nodule (Chronic 03/07/17) Surgical History (L)Lingulectomy(Segmentectomy) (11/11/14) Appendectomy (~1969) Cholecystectomy (~2007) Social History Smoking/Tobacco Use Status: Former Tobacco Use Alcohol Intake: current Alcohol Intake frequency: holidays/special occasions only Alcohol type: beer and wine Drug use: Never Substance use type: does not use Housing: house Number of Children: 0 What type of physical activity do you participate in: regular exercise and other Details: dances Frequency: 3-4 times per week Seatbelt use: always Drive intox or ride w/intox carrier driver: No Working smoke detector in home: Yes Fire extinguisher in home: Yes Carbon monox detector in home: Yes Do you feel safe at home: Yes Do you feel safe in your relationship?: Yes Exam Narrative Exam Narrative: 1.Const: Well-nourished, Well-developed, appearing stated age 2.Eyes: PERRL, no conjunctival injection, and symmetrical lids. 3.ENT: Atraumatic external nose and ears. Moist MM. Neck: Symmetric, trachea midline, No thyromegaly. 4.CVS: +S1/S2, No murmurs or gallops. Peripheral pulses 2+ and equal in all extremities. Brisk capillary refill in all extremities. There is reproducible chest pain on palpation of the left parasternal border. No evidence of rash, no signs of shingles. No evidence of asymmetry. No signs of other abnormality. 5.RESP: Unlabored respiratory effort. Mild wheezing in the left upper lung field. No rhonchi, no rales. 6.GI: Soft, Nontender/Nondistended, No hepatosplenomegaly. No guarding or rebound. 7.MSK: Normocephalic/Atraumatic, Extremities w/o deformity or ttp No cyanosis or clubbing, Normal movement of all extremities 8.Skin: Warm, Dry. No rashes or lesions. 9.Neuro: traffic expert II-XII grossly intact. Sensation grossly intact, no focal neurologic deficits. 10.Psych: (AAO) x3. Appropriate mood and affect Course Vital Signs Vital signs: Vital Signs Temperature 35.7 C L 08/06/19 13:48 Pulse 107 H 08/06/19 13:48 Respiratory Rate 16 08/06/19 13:48 Blood Pressure 165/81 H 08/06/19 13:48 Pulse Oximetry 97 08/06/19 13:48 Temperature 35.7 C L 08/06/19 13:48 Pulse 107 H 08/06/19 13:48 Respiratory Rate 16 08/06/19 13:48 Respiratory Effort Short of Breath 08/06/19 13:53 Blood Pressure 165/81 H 08/06/19 13:48 Blood Pressure Position Sitting 08/06/19 13:48 Pulse Oximetry 97 08/06/19 13:48 Oxygen Delivery Method Room Air 08/06/19 13:48 Oxygen Flow Rate 0 08/06/19 13:48 Pain Level 8 08/06/19 13:48
[2019-08-06 14:08] VITALS: RESP 16
[2019-08-06 14:15] LABS: Abs Immature Grans 0.02 k/cumm (0.0-0.09); Absolute Basophil Count 0.02 k/cumm (0.0-0.2); Absolute Eosinophil Count 0.06 k/cumm (0.0-0.7); Absolute Lymphocyte Count 2.56 k/cumm (1.2-3.4); Absolute Monocyte Count 0.72 k/cumm (0.11-0.7); Absolute Neutrophil Count 7.16 k/cumm (1.2-6.7); Basophils % 0.2; Eosinophils % 0.6; HCT 43.7 % (36.0-46.0); HGB 14.5 g/dL (12.0-15.5); Immature Grans % 0.2 %; Lymphocytes % 24.3; Mean Corp. HGB Concentration 33.2 g/dL (32.0-36.0); Mean Corpuscular Hemoglobin 29.3 pg (27.0-33.0); Mean Corpuscular Volume 88.3 fL (80-95); Mean Platelet Volume 10.5 fL (8.0-11.0); Monocytes % 6.8; Neutrophils % 67.9; Platelet Count 210 x1000/uL (130-400); RBC 4.95 m/cumm (4.00-5.20); RBC Distribution Width 12.8 % (11.7-14.6); White Blood Cell Count 10.54 k/cumm (4.4-10.8)
[2019-08-06] MEDS: Inhaler, Assist Device 1 EACH MC (14:22)
[2019-08-06] MEDS: Normal Saline 500 ML IV (14:22)
[2019-08-06] MEDS: Albuterol HFA 8 GM 60 PUFF INH IH (14:22)
[2019-08-06 14:32] LABS: ALT 31 U/L (14-59); AST 17 U/L (15-37); Alkaline Phosphatase 79 U/L (46-116); Anion Gap 6.6 mmol/L (3-11); BUN 17 mg/dL (7-18); Bilirubin, Total 0.9 mg/dL (0.2-1.0); CO2 30.4 mmol/L (21.0-32.0); CREATININE 0.81 mg/dL (0.55-1.02); Calcium 9.5 mg/dL (8.5-10.1); Chloride 100 mmol/L (98-107); Glucose 159 mg/dL (74-106); Lipase 109 U/L (73-393); Potassium 3.5 mmol/L (3.5-5.1); Sodium 137 mmol/L (136-145); Total Protein 8.2 g/dL (6.4-8.2)
[2019-08-06 14:33] LABS: Troponin I < 0.05 ng/Ml (<0.06)
[2019-08-06 14:34] LABS: PTT Activated 25.6 sec (21.0-31.4); Prothrombin Time 10.4 sec (9.3-11.0)
[2019-08-06 14:38] LABS: NT-proBNP 42 pg/mL (<300)
--- NOTE | 2019-08-06 14:40 | DI.RAD_ITS ---
EXAM: XR CHEST 2V PA LATERAL CLINICAL HISTORY: left chest pain TECHNIQUE: COMPARISON: XR CHEST PA AND LATERAL from 11/17/2014 CT CHEST WO from 06/27/2019 FINDINGS: The heart is not enlarged. The patient reportedly has a history of left lung carcinoma. There is an area of increased radiodensity in the left mid to upper lung which, in comparison with the steam trap man vie w of the chest CT of 06/27/2019, is unchanged in appearance. No new focal infiltrate seen. No pleur al effusion seen. IMPRESSION: Stable appearance of left upper lobe radiodensities in a patient lung carcinoma. No new significant findings.
[2019-08-06 14:50] LABS: D-Dimer 2023 ng/mlFEU (<500)
--- NOTE | 2019-08-06 15:00 | DI.CT_ITS ---
EXAM: CT CHEST PE CTA CLINICAL HISTORY: SOB, left chest pain, hx of cancer TECHNIQUE: COMPARISON: CT CHEST PE CTA from 01/18/2019 FINDINGS: CT angiography of the chest was performed with bolus infusion of 100 cc of Omnipaque 350. There is n o evidence of pulmonary embolic disease. Thoracic aorta and major branches appear intact. There is left upper lobe pulmonary scarring from prior lung carcinoma resection, stable appearance fr om 01/18/2019. No acute consolidation of the lungs. No pleural effusion. No gross change in mildly prominent left hilar and mediastinal lymph nodes, no axillary or supraclavicular adenopathy. Images obtained through the upper abdomen show grossly unremarkable appearance of visualized portions of liver, spleen, kidneys, and adrenals. IMPRESSION: No evidence of acute process.
[2019-08-06] MEDS: Omnipaque 350 MG/ML 100 ML BTL 65 ML IJ (15:14)
[2019-08-06 15:31] VITALS: BP 154/82; PULSE 104; RESP 18; TEMP 36.7; O2SAT 96
[2019-08-06] MEDS: Normal Saline - Diluent 50 ML VIAL IV (15:33)
[2019-08-06 16:36] VITALS: BP 166/91; PULSE 104; RESP 18; TEMP 36.6; O2SAT 95
[2019-08-06 16:45] VITALS: BP 166/91; PULSE 104; RESP 18; TEMP 36.6; O2SAT 95
== END 2019-08-06 16:40 | disposition home or self-care (01) ==
PROVIDERS: Emergency Provider Student in an Organized Health Care Education/Training Program; PCP Family Medicine
DX: R07.89 Other chest pain (principal); R06.2 Wheezing; C34.10 Malignant neoplasm of upper lobe, unspecified bronchus or lung
CPT/HCPCS: 71275; 80053; 83690; 93005; 96360; 99285; 71046; 83880; 84484; 85025; 85379; 85610; 85730; 93010; 99284; J3490

== ENCOUNTER 2019-09-03 00:16 | Outpatient (CLI) | payer MEDICARE, OTHER, SELFPAY ==
--- NOTE | 2019-09-03 09:00 | ETT_ITS ---
APPROVED REPORT Exam: Exercise Treadmill Patient Location: Out-Patient Room/Bed: Stress Nurse: Sindhu Cruz RN BMI: 22.11 Baseline Rhythm: Sinus Rhythm Comment: Occasional PVC's Indications: In August patient presented to the ED with pain between the shoulder blades that radiated t hrough to anterior chest. Patient has been seeing her chiropractor and has noticed an improvement in her symptoms. Medical History Medical History: Malignant neoplasm of upper lobe of lung, pulmonary nodule removal in November of 2014 , radiation of lung ending July of 2018. Cardiac Medications: Aspirin, Atorvastatin Allergies: No known drug allergies Cardiac Risk Factors: FHX of CAD, Hyperlipidemia Previous Cardiac Procedures: None Pretest Chest Pain Characteristics: No chest pain Exercise History: Physically active Lung Sounds: Clear to auscultation Heart Sounds: Regular Stress Test Details Test: Exercise stress testing was performed using a Kash protocol. Rest Stress HR Resting HR Supine: 93 bpm Max Heart Rate (APMHR): 137 bpm Resting HR Standin bpm Target HR (85% APMHR): 116 bpm Max HR Achieved: 125 bpm % of APMHR: 91 HR response to stress: Normal HR response to stress BP Resting BP Supine: 140/72 mmHg Resting BP Standin/70 mmHg Max BP: 160/62 mmHg BP response to stress: Normal blood pressure response to stress. ECG Resting ECG: Sinus Rhythm Ectopy: Occasional PVC's Stress ECG: Sinus Tachycardia ST Change: Normal Arrhythmia: VPC's Comment: Occasional PVC's in Pairs. Recovery ECG: Sinus Rhythm Recovery ST Change: Normal Clinical Reason for Termination: Leg Fatigue Stress Symptoms: None Exercise duration: 2 min49 sec Highest Stage Reached: Stage 1: 1.7 mph at 10% grade. Exercise capacity: 4.64 METs Functional Capacity: Mildly deminished capacity Stress ECG Conclusion 1. The patient exercised for 2 minutes and 50 seconds (5 METS) 2. Heart rate reached 91% of maximal predicted. Rate-pressure product was 18,000. 3. Exercise was stopped due to fatigue. 4. There is no evidence of ischemia on the ECG portion of the exam. 5. The Romero Score ( 3) estimates an annual cardiovascular mortality of 1% and a five year survival of 94%. Using the Romero Score there is an intermediate probability of angiographic coronary disease. Stress Test Summary STAGE Time (mins) Speed (mph) Grade (%) HR BP SYMPTOMS METS Supine 93 140/72 Standing 96 146/70 1 min recovery 114 160/62 3 min recovery 98 156/64 6 min recovery 90 144/68
== END 2019-09-03 00:36 ==
PROVIDERS: PCP Family Medicine; Visit Provider Family Medicine
DX: R07.89 Other chest pain (principal); E78.5 Hyperlipidemia, unspecified; C34.12 Malignant neoplasm of upper lobe, left bronchus or lung; Z92.3 Personal history of irradiation; Z82.49 Family history of ischemic heart disease and other diseases of the circulatory system
CPT/HCPCS: 93016; 93018; 93017

== ENCOUNTER 2020-01-21 10:09 | Outpatient (REF) | payer MEDICARE, OTHER, SELFPAY | END 2020-01-21 10:29 | LOC: LBO 10:09 | PROVIDERS: PCP Family Medicine; Referring Provider Family Medicine; Visit Provider Family Medicine | DX: N39.0 Urinary tract infection, site not specified (principal) | CPT/HCPCS: 87077; 87086; 87186 ==

== ENCOUNTER 2020-01-29 10:04 | Outpatient (REF) | payer MEDICARE, OTHER, SELFPAY | END 2020-01-29 10:24 | LOC: LBO 10:04 | PROVIDERS: PCP Family Medicine; Visit Provider Family Medicine | DX: J02.9 Acute pharyngitis, unspecified (principal) | CPT/HCPCS: 87070 ==

== ENCOUNTER 2020-02-03 00:53 | Outpatient (CLI) | payer MEDICARE, OTHER, SELFPAY ==
--- NOTE | 2020-02-03 07:30 | DI.RAD_ITS ---
EXAM: XR CHEST 2V PA LATERAL CLINICAL HISTORY: rash, systemic, hx lung CA, c/o paraneoplastic rash,r21 TECHNIQUE: COMPARISON: CR XR CHEST 2V PA LATERAL from 08/06/2019 FINDINGS: The heart is not enlarged. Previously described areas of scarring are again seen in the left mid damaris g, unchanged from 08/06/2019. No new consolidation, mass, or pleural effusion identified. IMPRESSION: Stable appearance of chest in patient with history of lung carcinoma. RADIATION DOSE DELIVERED: Total DLP
== END 2020-02-03 01:13 ==
PROVIDERS: PCP Family Medicine; Visit Provider Physician Assistant
DX: R21 Rash and other nonspecific skin eruption (principal); Z85.118 Personal history of other malignant neoplasm of bronchus and lung
CPT/HCPCS: 71046

== ENCOUNTER 2020-02-05 04:13 | Outpatient (CLI) | payer MEDICARE, OTHER, SELFPAY ==
[2020-02-05 10:28] LABS: Abs Immature Grans 0.02 10^3/uL (0.0-0.06); Absolute Basophil Count 0.04 10^3/uL (0.0-0.2); Absolute Eosinophil Count 0.09 10^3/uL (0.0-0.7); Absolute Lymphocyte Count 3.17 10^3/uL (1.2-3.4); Absolute Monocyte Count 0.64 10^3/uL (0.1-0.8); Absolute Neutrophil Count 4.15 10^3/uL (1.2-6.7); Basophils % 0.5; Eosinophils % 1.1; HCT 42.2 % (36.0-46.0); HGB 13.8 g/dL (11.2-15.7); Immature Grans % 0.2; Lymphocytes % 39.1; MCH 29.7 pg (27.0-33.0); MCHC 32.7 % (32.0-36.0); MCV 90.8 fL (80-95); Monocytes % 7.9; Neutrophils % 51.2; Nucleated RBC 0 %; Platelet Count 282 10^3/uL (130-400); RBC 4.65 10^6/uL (3.93-5.22); RDW 12.1 % (11.7-14.6); RDW-SD 39.8 fL; WBC 8.11 10^3/uL (4.4-10.8)
[2020-02-05 11:07] LABS: ESR 17 mm/hr (0-30)
[2020-02-05 11:33] LABS: ALT 29 U/L (14-59); AST 20 U/L (15-37); Albumin 3.9 g/dL (3.4-5.0); Alkaline Phosphatase 74 U/L (46-116); Anion Gap 7.6 mmol/L (3-11); BUN 11 mg/dL (7-18); C-Reactive Protein 0.15 mg/dL (0.0-0.3); CO2 30.4 mmol/L (21.0-32.0); CREATININE 0.75 mg/dL (0.55-1.02); Calcium 8.9 mg/dL (8.5-10.1); Chloride 100 mmol/L (98-107); Glucose 135 mg/dL (74-106); Potassium 3.6 mmol/L (3.5-5.1); Sodium 138 mmol/L (136-145); Total Protein 7.3 g/dL (6.4-8.2)
== END 2020-02-05 04:33 ==
PROVIDERS: PCP Family Medicine; Visit Provider Physician Assistant
DX: R21 Rash and other nonspecific skin eruption (principal)
CPT/HCPCS: 36415; 80053; 85652; 85025; 86140

== ENCOUNTER 2020-02-12 01:19 | Outpatient (CLI) | payer MEDICARE, OTHER, SELFPAY ==
--- NOTE | 2020-02-12 13:05 | DI.CT_ITS ---
EXAM: CT CHEST WO CLINICAL HISTORY: RECURRENT NON SMALL CELL LUNG CA,C34.90,S/P TREATMENT,? STATUS OF DISEASE. TECHNIQUE: Imaging protocol: Axial computed tomography images were obtained and coronal and sagittal reformatted images were created and reviewed. COMPARISON: CT CT CHEST WO from 06/27/[address] CHEST PE CTA from 08/06/2019 FINDINGS: Tracheobronchial tree: Patent where visualized. Mediastinum and Olipmia: No change in the mediastinal and hilar lymph nodes since the prior examination. Pulmonary parenchyma: No focal consolidation. There is a calcified granuloma again seen in the left lower lobe. Scarring in the left upper lobe appears stable. Stable mild pulmonary fibrosis. Pleura: No effusion or pneumothorax. Heart: The heart is not dilated. Moderate coronary artery calcification. No significant pericardial effusion. Aorta: Thoracic aorta non-dilated. Atherosclerosis. Upper abdomen: Colonic diverticulosis. Status post cholecystectomy. Lymph nodes: Please see above. Bones:Old left rib fractures. Degenerative changes in the spine. Soft tissues: Unremarkable. IMPRESSION: Stable appearance of the chest. No acute abnormality. RADIATION DOSE DELIVERED: 418.71mGy.cm Total DLP 418.71mGy.cm Total DLP DATA REPOSITORY: All CT scans at this facility are submitted to the National Radiology Data Registry (NRDR) Dose Index Registry (DIR) with the [employer] (ACR). RADIATION OPTIMIZATION: All CT scans at this facility use at least one of these dose optimization te chniques: automated exposure control; mA and/or kV adjustment per patient size (includes targeted exa ms where dose is matched to clinical indication); or iterative reconstruction.
== END 2020-02-12 01:39 ==
PROVIDERS: PCP Family Medicine; Visit Provider Nurse Practitioner Family
DX: C34.12 Malignant neoplasm of upper lobe, left bronchus or lung (principal)
CPT/HCPCS: 71250

== ENCOUNTER 2020-04-13 16:34 | Outpatient (REF) | payer MEDICARE, OTHER, SELFPAY ==
[2020-04-14 21:26] LABS: COVID-19 RT-PCR Result NEGATIVE (Negative)
== END 2020-04-13 16:54 ==
LOC: LBN 16:34
PROVIDERS: PCP Family Medicine; Visit Provider Physician Assistant
DX: Z11.59 Encounter for screening for other viral diseases (principal); Z78.9 Other specified health status
CPT/HCPCS: U0003

== ENCOUNTER 2020-04-14 | Outpatient (CLI) | payer MEDICARE, OTHER, SELFPAY ==
--- NOTE | 2020-04-14 14:04 | DI.RAD_ITS ---
EXAM: XR CHEST 2V PA LATERAL CLINICAL HISTORY: cough, wheezing left lung on exam, hx CA left lung r05 cough TECHNIQUE: 2D digital imaging was performed. COMPARISON: CR XR CHEST 2V PA LATERAL from 02/03/2020 FINDINGS: MEDIASTINUM: Normal. HEART: Normal. PULMONARY VASCULATURE: Normal. LUNGS: There is an unchanged area of scarring in the left mid lung. No focal consolidating infiltrat es are seen. The lungs are hyperinflated suggesting underlying COPD. PLEURAL SPACE: No pleural effusion or pneumothorax. BONE:Within normal limits for the patient's age. OTHER FINDINGS:Normal. IMPRESSION: No acute pulmonary findings. DATA REPOSITORY: RADIATION DOSE DELIVERED:
== END 2020-04-14 00:20 ==
PROVIDERS: PCP Family Medicine; Visit Provider Physician Assistant
DX: R05 Cough (principal); Z85.118 Personal history of other malignant neoplasm of bronchus and lung; R06.2 Wheezing
CPT/HCPCS: 71046

== ENCOUNTER 2020-08-12 01:30 | Outpatient (CLI) | payer MEDICARE, OTHER, SELFPAY ==
--- NOTE | 2020-08-12 | DI.CT_ITS ---
Exam(s) CT CHEST WO EXAM: CT CHEST WO CLINICAL HISTORY: RECURRENT SMALL CELL LUNG CA,C34.90,S/P TREATMENT,? STATUS OF DISEASE. TECHNIQUE: Imaging protocol: Axial computed tomography images were obtained and coronal and sagittal reformatted images were created and reviewed. COMPARISON: CT CT CHEST WO from 02/12/2020 FINDINGS: Tracheobronchial tree: Patent where visualized. Pulmonary parenchyma: There is stable bilateral apical scarring present. The opacity in the left upp er lobe is un changed. Focal bronchiectasis is again noted. No new infiltrates are seen. There is a calcified granuloma in the left lower lobe. There has been no significant change in appearance of the lungs compared to the prior examination. Mediastinum and Olimpia: Stable lymph nodes in the mediastinum. Pleura: No effusion or pneumothorax. Heart: The heart is not dilated. Moderate coronary artery calcification is present. No pericardial e ffusion. Aorta: Thoracic aorta non-dilated. Atherosclerosis. Upper abdomen: Unremarkable. Lymph nodes: Stable lymph nodes in the mediastinum and hilum. Soft tissues: Unremarkable. Bones:Stable healing left rib fracture. Stable post traumatic changes to the left ribs. IMPRESSION: Stable appearance of the chest since 02/12/2020. RADIATION DOSE DELIVERED: 358.33mGy.cm Total DLP 358.33mGy.cm Total DLP DATA REPOSITORY: All CT scans at this facility are submitted to the National Radiology Data Registry (NRDR) Dose Index Registry (DIR) with the [employer] (ACR). RADIATION OPTIMIZATION: All CT scans at this facility use at least one of these dose optimization te chniques: automated exposure control; mA and/or kV adjustment per patient size (includes targeted exa ms where dose is matched to clinical indication); or iterative reconstruction.
== END 2020-08-12 01:50 ==
PROVIDERS: PCP Family Medicine; Visit Provider Nurse Practitioner Family
DX: C34.90 Malignant neoplasm of unspecified part of unspecified bronchus or lung (principal); Z92.3 Personal history of irradiation
CPT/HCPCS: 71250

== ENCOUNTER 2021-02-22 01:45 | Outpatient (CLI) | payer MEDICARE, OTHER, SELFPAY ==
--- NOTE | 2021-02-22 13:00 | DI.CT_ITS ---
Exam(s) CT CHEST WO EXAM: CT CHEST WO CLINICAL HISTORY: MALIGNANT NEOPLASM OF BRONCHUS LT UPPER LOBE C34.12, ACCESS FOR REOCCURANCE. TECHNIQUE: Multi planar reconstructions were performed. CONTRAST MATERIAL: None COMPARISON: CT CT CHEST WO from 06/27/[address] CHEST WO from 06/27/[address] CHEST WO from 08/12/2020 FINDINGS: CHEST: LUNGS: There is stable biapical scarring again noted. The previously described left upper lobe infil trate is again unchanged. There is no change compared to the prior study. In the left lower lobe th ere is also an unchanged 4 millimeter nodule. Also unchanged from June 2019 and August 2020. No new f indings in either lung. No pleural effusions. No new findings in the trachea and mainstem bronchi. MEDIASTINUM: No new hilar nor mediastinal adenopathy. Visualized thyroid unremarkable.No obvious axi llary adenopathy CARDIAC: Heart size is normal. There is no pericardial effusion.Some coronary artery calcification i s again noted. VISUALIZED UPPER ABDOMEN:No adrenal masses. OSSEOUS: No significant osseous lesions.Postop left rib changes again noted. IMPRESSION: 1. There is continued stable appearance of the chest, unchanged from the 2 prior studies listed above . 2. No new infiltrates, new nodules, or pleural effusions. 3. No new intrathoracic adenopathy evident. RADIATION DOSE DELIVERED: 376.51mGy.cm Total DLP DATA REPOSITORY: All CT scans at this facility are submitted to the National Radiology Data Registry (NRDR) Dose Index Registry (DIR) with the [employer] ([employer]). RADIATION OPTIMIZATION: All CT scans at this facility use at least one of these dose optimization te chniques: automated exposure control; mA and/or kV adjustment per patient size (includes targeted exa ms where dose is matched to clinical indication); or iterative reconstruction.
== END 2021-02-22 02:05 ==
PROVIDERS: PCP Family Medicine; Visit Provider Nurse Practitioner
DX: C34.12 Malignant neoplasm of upper lobe, left bronchus or lung (principal)
CPT/HCPCS: 71250

== ENCOUNTER 2021-06-10 04:23 | Outpatient (CLI) | payer MEDICARE, OTHER, SELFPAY ==
[2021-06-15 12:31] LABS: SS-A Antibody 2.1 Units (<20.0)
== END 2021-06-10 04:24 | disposition home or self-care (01) ==
LOC: LBO 04:23
PROVIDERS: PCP Family Medicine
DX: R68.2 Dry mouth, unspecified (principal)
CPT/HCPCS: 36415; 86235

== ENCOUNTER → 2021-09-15 01:16 | Outpatient (CLI) | payer MEDICARE, OTHER, SELFPAY ==
--- NOTE | 2021-09-15 | DI.CT_ITS ---
Exam(s) CT CHEST WO EXAM: CT CHEST WO CLINICAL HISTORY: NON SMALL CELL LUNG CA, METASTATIC, ASSESS TREATMENT RESPONSE, C34.12. TECHNIQUE: Multi planar reconstructions were performed. CONTRAST MATERIAL: None COMPARISON: CT CT CHEST WO from 02/22/2021 FINDINGS: CHEST: LUNGS: There is continued relatively stable appearance of the left upper lobe infiltrate which extend s from the hilum out to pleural surface. Small benign-appearing left lower lobe nodule also unchange d. There are no new pulmonary findings. No pleural effusions. No new findings in the trachea and m ainstem bronchi. MEDIASTINUM: No new hilar nor mediastinal adenopathy. Visualized thyroid unremarkable. No axillary adenopathy. CARDIAC: Heart size is normal. There is no pericardial effusion.Caliber of the thoracic aorta is wit hin normal limits. VISUALIZED UPPER ABDOMEN:No new significant adrenal masses. On the lower most images there is calcif ied septum within the upper abdominal aorta which is unchanged and is possibly related to remote diss ection. OSSEOUS: No significant osseous lesions.. IMPRESSION: 1. Compared to 02/22/2021 there is continued stable appearance of the left upper lobe infiltrate and other findings described above. No new significant findings. No pleural effusions. 2. No new intrathoracic adenopathy evident. RADIATION DOSE DELIVERED: 343.51mGy.cm Total DLP DATA REPOSITORY: All CT scans at this facility are submitted to the National Radiology Data Registry (NRDR) Dose Index Registry (DIR) with the [employer] (ACR). RADIATION OPTIMIZATION: All CT scans at this facility use at least one of these dose optimization te chniques: automated exposure control; mA and/or kV adjustment per patient size (includes targeted exa ms where dose is matched to clinical indication); or iterative reconstruction.
== END ==
PROVIDERS: PCP Family Medicine; Visit Provider Nurse Practitioner Family
DX: C34.12 Malignant neoplasm of upper lobe, left bronchus or lung (principal); R91.8 Other nonspecific abnormal finding of lung field
CPT/HCPCS: 36415; 71250; 80053; 82607; 83540; 83550; 84443; 85025

== ENCOUNTER 2021-09-15 04:05 | Outpatient (CLI) | payer MEDICARE, OTHER, SELFPAY ==
[2021-09-15 10:55] LABS: Abs Immature Grans 0.02 10^3/uL (0.0-0.06); Absolute Basophil Count 0.05 10^3/uL (0.0-0.2); Absolute Eosinophil Count 0.07 10^3/uL (0.0-0.7); Absolute Lymphocyte Count 2.38 10^3/uL (1.2-3.4); Absolute Monocyte Count 0.58 10^3/uL (0.1-0.8); Absolute Neutrophil Count 4.55 10^3/uL (1.2-6.7); Basophils % 0.7; Eosinophils % 0.9; HCT 41.7 % (36.0-46.0); HGB 13.9 g/dL (11.2-15.7); Immature Grans % 0.3; Lymphocytes % 31.1; MCH 29.8 pg (27.0-33.0); MCHC 33.3 % (32.0-36.0); MCV 90 fL (80-95); Monocytes % 7.6; Neutrophils % 59.4; Platelet Count 224 10^3/uL (130-400); RBC 4.66 10^6/uL (3.93-5.22); RDW 12.1 % (11.7-14.6); RDW-SD 39.3 fL; WBC 7.65 10^3/uL (4.4-10.8)
[2021-09-15 11:37] LABS: ALT 25 U/L (14-59); AST 20 U/L (15-37); Alkaline Phosphatase 69 U/L (46-116); Anion Gap 7.7 mmol/L (3-11); BUN 18 mg/dL (7-18); CO2 30.3 mmol/L (21.0-32.0); CREATININE 0.8 mg/dL (0.55-1.02); Calcium 9.1 mg/dL (8.5-10.1); Chloride 102 mmol/L (98-107); Glucose 110 mg/dL (74-106); Potassium 3.4 mmol/L (3.5-5.1); Sodium 140 mmol/L (136-145); Total Protein 8.1 g/dL (6.4-8.2)
[2021-09-15 11:44] LABS: TSH (W/Ref FT4) 1.95 uIU/mL (0.36-3.74)
[2021-09-15 14:15] LABS: Iron 68 ug/dL (50-170); Total Iron Binding Capacity 258 ug/dL (250-450); Transferrin Sat 26 % (15-50)
[2021-09-15 14:43] LABS: Vitamin B12 709 pg/mL (193-986)
== END 2021-09-15 04:06 | disposition home or self-care (01) ==
LOC: LBO 04:07
PROVIDERS: Nurse Practitioner Family; PCP Family Medicine; Visit Provider Family Medicine
DX: R53.83 Other fatigue (principal); K63.5 Polyp of colon; R68.89 Other general symptoms and signs; R63.4 Abnormal weight loss
CPT/HCPCS: 36415; 80053; 82607; 83540; 83550; 84443; 85025

== ENCOUNTER 2022-06-15 01:43 | Outpatient (CLI) | payer MEDICARE, OTHER, SELFPAY ==
--- NOTE | 2022-06-15 10:15 | DI.CT_ITS ---
Exam(s) CT CHEST WO EXAM: CT CHEST WO CLINICAL HISTORY: GABRIEL LUNG CA, c34.12,s/p lingulectomy,comp to 07/26/18,assess treatment respo TECHNIQUE: Imaging Protocol: Axial computed tomography images with coronal and sagittal reformatted images were created and reviewed CONTRAST MATERIAL: Noncontrast COMPARISON: CR XR CHEST 2V PA LATERAL from 04/14/[address] CHEST WO from 09/15/2021 FINDINGS: Pulmonary parenchyma: Stable bilateral upper lobe scarring and interstitial thickening. Stable mostl y linear area of scarring in the left upper lobe in region of suture material. Adjacent pleural thic kening. Stable calcified nodule left lower lobe. Tracheobronchial tree: No bronchiectasis or mucous plugging. Mediastinum and Olimpia: Stable 14 millimeter maximal dimension precarinal lymph node. Pleura: No effusion or pneumothorax. Heart: The heart is not dilated. coronary artery calcifications are seen. Aorta: Thoracic aorta non-dilated. Atherosclerosis. Upper abdomen: Unremarkable. Bones: Degenerative changes in the spine.. Resections of portions of the left anterior ribs. Soft tissues: Unremarkable. IMPRESSION: Stable post treatment changes in the left upper lobe. No evidence of recurrence or metastatic diseas e. RADIATION DOSE DELIVERED: 346.44mGy.cm Total DLP DATA REPOSITORY: All CT scans at this facility are submitted to the National Radiology Data Registry (NRDR) Dose Index Registry (DIR) with the [employer] (ACR). RADIATION OPTIMIZATION: All CT scans at this facility use at least one of these dose optimization te chniques: automated exposure control; mA and/or kV adjustment per patient size (includes targeted exa ms where dose is matched to clinical indication); or iterative reconstruction.
== END 2022-06-15 02:03 ==
LOC: DI 01:44
PROVIDERS: PCP Family Medicine; Visit Provider Nurse Practitioner Family
DX: C34.12 Malignant neoplasm of upper lobe, left bronchus or lung (principal)
CPT/HCPCS: 71250

== ENCOUNTER 2022-06-19 21:59 | Observation (INO) | payer MEDICARE, OTHER, SELFPAY ==
--- NOTE | 2022-06-19 21:45 | RT.EKG_ITS ---
APPROVED REPORT Exam: Resting ECG Reason for Exam: dizziness hx cva Patient Location: E HR:89 bpm ECG Measurements Heart Rate 89 AXIS DC 155 P 67 QRSd 74 QRS 71 QT 379 T 69 QTc 461 Conclusion Sinus rhythm...normal P axis, V-rate 60- 99 Consider anteroseptal infarct...Q >30mS, dimin R, V1-V2 Narrow complex normal sinus rhythm at a rate of 89. Normal axis. Intervals within normal limits. M ild ST segment elevation in V2. No ST segment depressions. No prior for comparison. No acute injur y pattern.
[2022-06-19 22:01] VITALS: BP 180/101; PULSE 86; RESP 18; TEMP 36.6; O2SAT 96
--- NOTE | 2022-06-19 22:12 | ED.GENADUL_ITS ---
Discharge Plan Disposition Patient Disposition: Admit to [facility] Condition: Stable Discharge Details Clinical Impression: Dizziness, Hypomagnesemia, Right arm numbness, Transient ischemic attack (TIA) Primary Care Provider: Lele Cannon ED Provider: Nahum Rojo Home Meds and New Rx's Prescriptions: No Action ascorbic acid (vitamin C) 1,000 mg tablet 1 g PO DAILY flourouracil topical B Complex Plus Vitamin C 27-26-66-5-300 mg capsule 1 cap PO DAILY Rx Instructions: give with food (meal/snack) albuterol sulfate 90 mcg/actuation HFA aerosol inhaler 2 puff IH Q6H PRN (Reason: shortness of breath or wheezing) Qty: 18 6RF pramoxine [CeraVe Itch Relief] 1 % lotion 1 applic topical PRN Rx Instructions: Pt to use lotion as many times as needed omeprazole 20 mg capsule,delayed release(DR/EC) 20 mg PO DAILY Qty: 90 3RF atorvastatin 10 mg tablet 10 mg PO DAILY Qty: 90 3RF Medical Decision Making This is an 86-year-old female with a history of whitecoat hypertension now in the emergency department with right arm numbness associated with dizziness conc erning for the possibility of CVA versus TIA. Based on the patient's reassuring neurological exam and her quite limited NIH stroke scale I do not feel that she is a candidate for tPA. She has had no tonic clonic activity to suggest a seizure so I do not think that she needs an EEG. No fevers nor confusion to suggest encephalitis nor meningitis so no indication for lumbar puncture. No chest pain to suggest ACS however will obtain a troponin. No dysuria nor frequency so I did not send a urinalysis as I was concerned for the possibility of false positives and medication side effects given the patient's lack of symptoms. Given no fevers I am not concerned for sepsis and vitals are not consistent with sepsis so we will defer blood cultures and empiric antibiotics at this point time. Patient does have an elevated blood pressure but is not on any antihypertensives medications. Given no visual deficits no aphasia and no neglect I am not concerned for large vessel occlusion so will defer CTA head and neck but rather just complete a dry CT scan to ensure that the patient does not have intracranial hemorrhage. We will obtain an ECG to assess for any bradycardia or tacky dysrhythmias. We will monitor her in the emergency department to ensure that she does not have any acute electrolyte abnormalities that could be causing her to feel dizzy and reassess. Chart review indicates that patient has had elevated blood pressures in the past. On September 08, 2020 patient systolic blood pressures of 160/101. Her highest blood pressure in the recent past has been in 2020 when her blood pressure was 173/93. 10:45 PM CBC with no anemia thrombocytopenia nor leukocytosis. Comprehensive metabolic panel with no MEENA. Mildly elevated BUN. Mild hypomagnesemia for which patient will receive oral repletion after bedside nursing assessment of swallow function. Patient did have mild hyperglycemia but no anion gap and no history of diabetes to suggest DKA. Patient confirms DNI DNR. Before going to CT patient also reported right leg numbness. Patient has a negative CT head without signs of intercranial hemorrhage we will treat with 324 mg of aspirin given elevated ABCD2 score for TIA secondary to one-point for the patient's age, one-point for her hypertension, and one-point for the duration of her symptoms lasting greater than 60 minutes. Total score [address] head showing mild nonspecific hypodensities of the periventricular and deep subcortical white matter but no acute pathologies. Will order aspirin and send asymptomatic COVID swab. Patient will likely benefit from an echocardiogram. 11:30 PM I spoke with Dr. Echavarria who graciously excepted the patient for hospitalization. Will allow permissive hypertension given concern for TIA. I updated the patient on the results of her scan and plan for hospitalization to which she was amenable. Patient reported that she had undergone MRIs in the past but that they cause her anxiety. She will likely benefit from anxiolysis. Chronic conditions affecting the care of the patient: History obtained from an outside historian: Paramedics [place] [facility] [place] Diagnostic interpretations performed by me: [Per my independent interpretation chest x-ray shows:] No acute abnormalities. [Per my independent interpretation EKG shows:] Narrow complex normal sinus rhythm at a rate of 89. Normal axis. Intervals within normal limits. Mild ST segment elevation in V2. No ST segment depressions. No prior for comparison. No acute injury pattern. Medications: No known antihypertensive medications at home. Social determinants of health affecting disposition: N/A Management discussed with: Hospitalist Treatment/interventions considered: Considered tPA but not a candidate based on minimal deficits. HPI General Date/Time Provider Initiated Documentation: 06/19/22 22:11 . HPI Narrative: This is an 86-year-old female with history of hypertension in the emergency department in the setting of dizziness. Patient reports that she was working on a puzzle this evening. She reports that when she was getting ready to go to bed she felt dizzy. This occurred at approximately 10 PM. She also noted that her right arm felt numb. She said that she has never had this sensation in the past. She had a normal day and she denies any preceding chest pain shortness of breath nausea vomiting abdominal pain fevers chills dysuria and frequency. She has not taken any recent falls. She does not require assistance with ambulation. She does not live alone. She is not on any antihypertensive medications. Related Data Home Medications Medication Instructions Recorded Confirmed vitamin B comp and C no.3 15 mg-10 1 cap PO DAILY 08/11/20 08/30/21 mg-50 mg-5 mg-300 mg capsule (B Complex Plus Vitamin C) ascorbic acid (vitamin C) 1,000 mg 1 g PO DAILY 09/08/20 08/30/21 tablet albuterol sulfate 90 mcg/actuation 2 puff inhalation Q6H PRN 03/11/21 08/30/21 aerosol inhaler shortness of breath or wheezing #18 grams pramoxine 1 % lotion (CeraVe Itch 1 applic topical PRN 06/02/21 08/30/21 Relief) flourouracil topical 08/30/21 08/30/21 atorvastatin 10 mg tablet 10 mg PO DAILY #90 tabs 02/24/22 omeprazole 20 mg capsule,delayed 20 mg PO DAILY #90 caps 02/24/22 release Previous Rx's Medication Instructions Recorded albuterol sulfate 90 mcg/actuation 2 puff inhalation Q6H PRN 03/11/21 aerosol inhaler shortness of breath or wheezing #18 grams atorvastatin 10 mg tablet 10 mg PO DAILY #90 tabs 02/24/22 omeprazole 20 mg capsule,delayed 20 mg PO DAILY #90 caps 02/24/22 release Allergies Allergy/AdvReac Type Severity Reaction Status Date / Time No Known Allergies Allergy Verified 06/19/22 22:12 General Stated Complaint: Dizzy/Sync FRANAZ: 3 PFSH All Active Problems (Updated 06/19/22 @ 23:29 by Nahum Rojo MD) Dizziness (Acute) Hypomagnesemia (Acute) Right arm numbness (Acute) Transient ischemic attack (TIA) (Acute) Chronic pruritic rash in adult (Acute) [facility] [place] [facility] White coat syndrome with high blood pressure but without hypertension (Acute) History of basal cell carcinoma (BCC) (Acute) Epistaxis (Acute) 09/04/20 Tetracaine and Silver Nitrate application for control of bleeding by ENT. Xerosis cutis (Acute) Eczema craquele (Acute) 05/20/20 Derm [facility] [place] 07/15/20 Dr Ten[place] [facility] [place] (Acute) Burning with urination (Acute) Pain with urination (Acute) Skin tag (Acute) Basal cell carcinoma of neck (Acute) 03/11/19 Dr Shah Dysfunction of both eustachian tubes (Acute) Neoplasm of unspecified behavior of bone, soft tissue, and skin (Acute) Dr Pablo Krueger lateral neck-shave excision 02/18/19 Polyp of colon (Acute 03/07/17) Actinic keratoses (Acute) Non-small cell cancer of left lung (Chronic) [place] [place] Stage 1a adenocarcinoma of the left upper lobe. Possible left upper lobe lung local recurrent adenocarcinoma original diagnosis in November 2014 as stage Ia disease resected in [place]. (Meghan armenta MD) Chronic GERD (Chronic) Hyperlipidemia (Chronic) Pulmonary nodule (Chronic 03/07/17) 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, s/p segmentectomy Medical History (Updated 06/19/22 @ 23:29 by Nahum Rojo MD) History of basal cell carcinoma Dr Pablo Krueger faith Surgical History (L)Lingulectomy(Segmentectomy) (11/11/14) Appendectomy (~1969) Cholecystectomy (~2007) Family History Mother Stroke Father Stroke Sister Diabetes Social History (Updated 08/30/21 @ 11:07 by Qing Garcia RN, RN) Smoking/Tobacco Use Status: Former Tobacco Use Smoking risk assessment performed?: Yes Alcohol Intake: never Drug use: Never Substance use type: does not use Adopted: No Caregiver/Support person: No Housing: house Number of Children: 0 Communication Needs: Hard of Hearing Education Level: high school current occupation: retired Pets and animals: No Do you think of yourself as: straight/heterosexual Current gender identity: female What is your relationship status?: How often do you talk on the phone with friends or family?: three or more times per week How often do you get together with friends or relatives?: once per week Do you belong to any clubs or organized social groups?: yes Panel score (0-1 are the most socially isolated patients): 2 What type of physical activity do you participate in: regular exercise and other Details: dances (has not done so during the past 12mo due to COVID) 08/21/20 Frequency: 3-4 times per week Seatbelt use: always Drive intox or ride w/intox driver wheelchair: No Working smoke detector in home: Yes Fire extinguisher in home: Yes Carbon monox detector in home: Yes Do you feel safe at home: Yes Do you feel safe in your relationship?: Yes Exam Narrative Exam Narrative: General: Well-appearing in no acute distress speaking in complete sentences. Sitting upright pleasant conversant Head: Normocephalic, atraumatic Ear, nose, mouth, throat: Grossly normal inspection. Normal voice, handling secretions normally. Neck: Trachea midline. Cardiovascular: Well-perfused distal extremities. Respiratory: Nonlabored respiration. Gastrointestinal: Nondistended abdomen. Musculoskeletal: No edema. Moving all 4 extremities spontaneously. Skin: Normal for age and race, grossly normal temperature and turgor. No acute rash. Neurologic: Alert and appropriate, cranial nerves II through XII intact grossly. NIH stroke scale 1 secondary to mild to moderate sensory loss on left upper extremity. No dysmetria. No dysdiadochokinesia. No pronator drift. 5 out of 5 bilateral upper and lower extremity strength. Psychiatric: Mood and manner are appropriate. Grooming and personal hygiene are appropriate. Course Vital Signs Vital signs: Vital Signs Temperature 36.6 C 06/19/22 22:01 Pulse 86 06/19/22 22:01 Respiratory Rate 18 06/19/22 22:01 Blood Pressure 180/101 H 06/19/22 22:01 Pulse Oximetry 96 06/19/22 22:01 Temperature 36.6 C 06/19/22 22:01 Temperature Source Skin 06/19/22 22:01 Pulse 86 06/19/22 22:01 Respiratory Rate 18 06/19/22 22:01 Respiratory Effort Normal 06/19/22 22:10 Blood Pressure 180/101 H 06/19/22 22:01 Blood Pressure Position Sitting 06/19/22 22:01 Pulse Oximetry 96 06/19/22 22:01 Oxygen Delivery Method Room Air 06/19/22 22:01 Oxygen Flow Rate 0 06/19/22 22:01
[2022-06-19 22:20] LABS: Abs Immature Grans 0.01 10^3/uL (0.0-0.06); Absolute Basophil Count 0.05 10^3/uL (0.0-0.2); Absolute Eosinophil Count 0.13 10^3/uL (0.0-0.7); Absolute Lymphocyte Count 4.99 10^3/uL (1.2-3.4); Absolute Monocyte Count 0.81 10^3/uL (0.1-0.8); Absolute Neutrophil Count 3.78 10^3/uL (1.2-6.7); Basophils % 0.5; Eosinophils % 1.3; HCT 36.1 % (36.0-46.0); HGB 12.3 g/dL (11.2-15.7); Immature Grans % 0.1; Lymphocytes % 51.1; MCH 30.1 pg (27.0-33.0); MCHC 34.1 % (32.0-36.0); MCV 88 fL (80-95); MPV 12.7 fL (8.0-11.0); Monocytes % 8.3; Neutrophils % 38.7; Platelet Count 144 10^3/uL (130-400); RBC 4.09 10^6/uL (3.93-5.22); RDW 12.1 % (11.7-14.6); RDW-SD 39.2 fL; WBC 9.77 10^3/uL (4.4-10.8)
[2022-06-19 22:41] LABS: ALT 22 U/L (14-59); AST 19 U/L (15-37); Albumin 3.5 g/dL (3.4-5.0); Alkaline Phosphatase 58 U/L (46-116); Anion Gap 9.9 mmol/L (3-11); BUN 21 mg/dL (7-18); Bilirubin, Total 0.5 mg/dL (0.2-1.0); CO2 25.1 mmol/L (21.0-32.0); CREATININE 0.8 mg/dL (0.55-1.02); Calcium 8.9 mg/dL (8.5-10.1); Chloride 100 mmol/L (98-107); Estimated GFR 72.16 (mL/min/1.73m2); Glucose 134 mg/dL (74-106); Magnesium 1.6 mg/dL (1.8-2.4); Potassium 3.5 mmol/L (3.5-5.1); Sodium 135 mmol/L (136-145); Total Protein 7.4 g/dL (6.4-8.2); Troponin I < 50 ng/L (<or=60)
--- NOTE | 2022-06-19 22:45 | DI.CT_ITS ---
Exam(s) CT HEAD WO EXAM: CT HEAD WO CLINICAL HISTORY: Left arm numbness. TECHNIQUE: Imaging Protocol: Axial computed tomography images with coronal and sagittal reformatted images were created and reviewed COMPARISON: None. FINDINGS: The examination is limited due to patient motion artifact. Ventricles and Extra axial spaces: Normal in size and morphology for the patient's age. Hemorrhage: None. Cerebral parenchyma: No acute territorial infarct. There is a focal area of hyperdensity near the ju nction of the karmen and medulla on the left. (Series 2, image 18). This is nonspecific. This may re present a focus of hemorrhage. Though it does have a linear appearance which may represent a vascula r malformation. Midline shift: None. Brainstem/Cerebellum: Normal. Calvarium: Normal. Visualized Paranasal sinuses/Mastoids: Clear. Soft Tissues: Unremarkable. IMPRESSION: 1. No acute intracranial process. 2. Hyperdense focus near the junction of the karmen in the medulla on the left. This may represent a f ocus of hemorrhage or possible vascular malformation. An MRI should be considered for further evalua tion. 3. Findings were discussed with Dr. Jensen at 8:40 a.m. on 06/20/2022. RADIATION DOSE DELIVERED: 662.92mGy.cm Total DLP DATA REPOSITORY: All CT scans at this facility are submitted to the National Radiology Data Registry (NRDR) Dose Index Registry (DIR) with the [employer] (ACR). RADIATION OPTIMIZATION: All CT scans at this facility use at least one of these dose optimization te chniques: automated exposure control; mA and/or kV adjustment per patient size (includes targeted exa ms where dose is matched to clinical indication); or iterative reconstruction.
--- NOTE | 2022-06-19 22:50 | DI.RAD_ITS ---
Exam(s) XR CHEST 1V IN DI DEPT EXAM: XR CHEST 1V IN DI DEPT CLINICAL HISTORY: Dizziness TECHNIQUE: 2D digital imaging was performed of the chest. One image was obtained. An AP view was ob tained. COMPARISON: CR XR CHEST 2V PA LATERAL from 04/14/2020 FINDINGS: MEDIASTINUM: Normal. HEART: Normal. PULMONARY VASCULATURE: Normal. LUNGS: There is unchanged scarring seen in the left mid lung. No focal consolidation is present. PLEURAL SPACE: No pleural effusion or pneumothorax. BONE:Within normal limits for the patient's age. OTHER FINDINGS:Normal. IMPRESSION: No acute pulmonary findings. DATA REPOSITORY: RADIATION DOSE DELIVERED:
[2022-06-19] MEDS: Magnesium Oxide 400 MG TAB 800 MG PO (23:07)
--- NOTE | 2022-06-19 23:21 | DI.VRAD_ITS ---
PROCEDURE INFORMATION: Exam: CT Head Without Contrast Exam date and time: 06/19/2022 10:34 PM Age: 86 years old Clinical indication: Dizziness TECHNIQUE: Imaging protocol: Computed tomography of the head without contrast. Radiation optimization: All CT scans at this facility use at least one of these dose optimization techniques: automated exposure control; mA and/or kV adjustment per patient size (includes targeted exams where dose is matched to clinical indication); or iterative reconstruction. COMPARISON: No relevant prior studies available. FINDINGS: Brain: Mild nonspecific hypodensities of the periventricular and deep subcortical white matter, most likely secondary to chronic microangiopathic ischemic change. No intracranial hemorrhage or extra-axial fluid collection. No evidence of mass effect or midline shift. Ocreas-white matter differentiation is normal. Cerebral ventricles: Mild prominence of the ventricles and sulci, most likely attributed to parenchymal volume loss. Paranasal sinuses: Unremarkable. No fluid levels. Mastoid air cells: Unremarkable. Bones/joints: No acute calvarial fracture. Soft tissues: Scalp soft tissues are unremarkable. IMPRESSION: 1. No acute intracranial pathology. 2. Other chronic findings, as above. Dictated and Authenticated by: Filippo Martins MD. Ordering:ESTRELLITA Sidhu MD
--- NOTE | 2022-06-19 23:22 | DI.VRAD_ITS ---
PROCEDURE INFORMATION: Exam: XR Chest Exam date and time: 06/19/2022 10:47 PM Age: 86 years old Clinical indication: Other: Dizziness TECHNIQUE: Imaging protocol: Radiologic exam of the chest. Views: 1 view. COMPARISON: CT CHEST WO 06/15/2022 10:10 AM FINDINGS: Lungs: Chronic linear scarring in the left upper lobe with associated parenchymal calcifications. No other focal areas of acute consolidation. Pleural spaces: No pleural effusion. No pneumothorax. Heart/Mediastinum: Cardiac and mediastinal silhouettes are unremarkable. Bones/joints: No acute osseus lesion or fracture. IMPRESSION: 1. No acute cardiopulmonary findings. 2. Chronic findings, as above. Dictated and Authenticated by: Filippo Martins MD. Ordering:ESTRELLITA Sidhu MD
[2022-06-19] MEDS: Aspirin 325 MG TAB PO (23:37)
[2022-06-19 23:53] LABS: Source Nasal/Nares
[2022-06-20] VITALS (12 sets, daily range): BP systolic 154–174; BP diastolic 60–97; PULSE 63–98; RESP 14–20; TEMP 35.6–36.9; O2SAT 94–98
--- NOTE | 2022-06-20 | DI.MRI_ITS ---
Exam(s) MR BRAIN WO EXAM: MR BRAIN WO CLINICAL HISTORY: TIA / Right sided paresthesia TECHNIQUE: Multiplanar multisequence MRI of the brain was performed. COMPARISON: CT CT HEAD WO from 06/19/2022 FINDINGS: The examination is limited due to patient motion artifact. VENTRICLES AND EXTRA AXIAL SPACES: Normal in size and morphology for the patient's age. MIDLINE SHIFT: None. CEREBRAL PARENCHYMA: No focus of restricted diffusion to suggest acute infarct. No space-occupying le maria c identified. There are multiple areas of hyperintense signal seen in the white matter on the FLAI R and T2 weighted images consistent with small vessel ischemic disease. HEMORRHAGE: On the gradient images, there is a linear area of decreased signal in the left aspect of the brainstem near the junction of the medulla and karmen. This corresponds to the area seen on the CT scan. Its appearance is suggestive of a vascular malformation with evidence of prior hemorrhage. BRAINSTEM/CEREBELLUM: Normal. CALVARIUM: Normal. VISUALIZED PARANASAL SINUSES/MASTOIDS:Clear. TETLIN OF EDWARDS: Normal flow void. There is a question of an 4.3 mm aneurysm at the junction of the M1 and M2 segments of the left middle cerebral artery. (Series 64625, image 12). PITUITARY GLAND: Unremarkable. OTHER FINDINGS: None. IMPRESSION: 1. No evidence of an acute infarct. 2. Linear area of hypointense signal on the gradient images in the left aspect of the brainstem. Thi s corresponds to the CT finding. 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 3. Small vessel ischemic disease and age-related cerebral atrophy. 4. Question of a 4.3 mm focal dilatation at the junction of the M1 and M2 segments of the left middle cerebral artery. This may represent an aneurysm. MR or CT angiography may be obtained for further evaluation. DATA REPOSITORY:
--- NOTE | 2022-06-20 | DI.US_ITS ---
APPROVED REPORT EXAM: Comprehensive 2D, Doppler, and color-flow Echocardiogram Patient Location: In-Patient Room/Bed: 230 Compliance Officer: Charmaine Solomon RDCS (AE) Indications: TIA, HTN Other Information Study Quality: Adequate. Technically limited study due to exam done bedside. Conclusion Normal left ventricular wall thickness and chamber size. Ejection fraction is 60%. Wall motion is n ormal Normal right ventricular size and systolic function Both atria are normal in size There is no structural or hemodynamically significant valvular disease Estimated right ventricular systolic pressure is 20 mmHg Borderline dilated ascending aorta Wall motion Left Ventricle The left ventricle is normal size. The left ventricular systolic function is normal. The left ventric ular ejection fraction is within the normal range. Mild concentric left ventricular hypertrophy. Ther e is normal LV segmental wall motion. There is no ventricular septal defect visualized. LVEF is 60%. Right Ventricle The right ventricle is normal size. The right ventricular systolic function is normal. The RVSP is 19 .7 mmHg. Atria The left atrium size is normal. The right atrium size is normal. The interatrial septum is intact wit h no evidence for an atrial septal defect. Aortic Valve The aortic valve is normal in structure. Aortic valve is trileaflet. There is no aortic valvular sten osis. No aortic regurgitation is present. Mitral Valve The mitral valve is normal in structure. No evidence of mitral valve stenosis. Trace to mild mitral regurgitation. Tricuspid Valve The tricuspid valve is normal in structure. There is no tricuspid valve stenosis. Trace to mild tricu spid regurgitation. Pulmonic Valve The pulmonary valve is normal in structure. There is no pulmonic valvular stenosis. Trace pulmonic re gurgitation. Great Vessels The aortic root is normal in size. The ascending aorta is mildly dilated. Aortic arch is normal in ca liber. IVC is normal in size and collapses >50% with inspiration. Pericardium There is no pericardial effusion. 2D Dimensions IVSD d PLAX 1.32 cm F: 0.6-1.0 LV Vol A2C d MOD 45.8 mL LVPW d PLAX 1.30 cm F: 0.6 - 1.0 LV Vol A4C d MOD 66.3 mL LVID d PLAX 3.50 cm F: 3.8 - 5.2 LA Area A4C s MOD 12.58 cm2 LVDs 2.35 cm F: 2.2 - 3.5 LA Area A2C s MOD 14.90 cm2 Ao Root d 3.24 cm F: 2.7 - 3.3 LV EF A4C MOD 55.9 % RA Area A4C 10.30 cm2 LV EF A2C MOD 56.8 % Ao Asc Diam d 3.37 cm F: 2.3 - 3.1 LV EF Biplane MOD 57.1 % LV EF Teichholz 60.9 % SV 31.99 mL LVEF (Hinds's) 57.13 % F: 54 - 74 LV Volume 56.00 mL F: 46 - 106 LV Volume Index 35.00 mL/m2 F: 29 - 61 LV Vol Biplane MOD 56.0 mL FS 31.75 % M-Mode TAPSE 2.10 cm (M/F) >1.7 LV Diastology MV E' medial 0.063 (>0.07 m/s) E/A Ratio 0.7 LV E/e MED 11.85 (<14) MV E Vmax 0.74 (0.4-1.3 m/s) MV E' lateral 0.074 (>0.1 m/s) MV A Vmax 1.10 (0.4-1.3 m/s) LV E/e LAT 9.95 (<14) MV E/A Ratio 0.65 MV E/E' medial 11.87 MV E/E' lateral 9.99 Aortic Valve LVOT Area 3.08 cm2 AoV Area Vmax 2.87 cm2 LVOT Vmax 1.00 m/s WILLIAM Mean Jona. 2.66 cm2 LVOT Mean Jona. 0.63 m/s LVOT Peak Grad 4.0 mmHg LVOT Mean Grad 1.9 mmHg LVOT VTI 0.194 m LVOT Diam s 1.95 cm AoV Vmax 1.08 m/s Velocity Ratio 0.93 AoV Mean Jona. 0.73 m/s AoV Peak Grad 4.6 mmHg LVOT SV 59.71 mL AoV Mean Grad 2.4 mmHg AoV VTI 0.196 m AoV Area VTI 3.04 cm2 Mitral Valve MV DT 297 (160-240 msec) MV PHT 86 msec MV Area PHT 2.55 cm2 MV VTI 0.363 m MV Area VTI 1.65 (4.0-6.0 cm2) Pulmonary Valve PV Vmax 0.87 (0.5-1.5 m/s) RVOT Peak Gr. 1.38 mmHg PV Peak Grad 3.0 mmHg RVOT Mean Gr. 0.75 mmHg PV Mean Grad 1.6 mmHg RVOT VTI 0.106 m PV VTI 0.156 m RVOT Vmax 0.59 m/s Tricuspid Valve TR Peak Grad 16.6 mmHg TR Vmax 2.04 m/s RA Pressure 3.00 mmHg RVSP (TR) 19.7 mmHg
[2022-06-20 00:24] LABS: COVID-19 PCR Negative (Negative)
--- NOTE | 2022-06-20 00:43 | NUR.NOTE ---
Nursing Note:Report called to JENNIFER Hernandez on floor, pt transported to room.
[2022-06-20] MEDS: Mylanta Suspension 30 ML CUP PO (01:39)
[2022-06-20 01:45] LABS: Troponin I < 50 ng/L (<or=60)
--- NOTE | 2022-06-20 04:08 | W.PM.HP.N ---
Date of service: 06/20/22 Time of Service: 04:08 Assessment and Plan Assessment and plan (1) Dizziness: Status: Acute Assessment and plan: Vertiginous in nature. Likely peripheral; has had intermittently and not related with the paresthesias of the Right upper and lower exts that she currently endorses. R/O CVA with MRI. She had to abort an MRI in the past d/t claustrophobia. Ativan 0.5mg IV prior to MRI scheduled. PT to evaluate. (2) Hypomagnesemia: Status: Acute Assessment and plan: Replete and monitor. (3) Hyperlipidemia: Status: Chronic Assessment and plan: Continue her home atorvastatin 10mg. (4) Chronic GERD: Status: Chronic Assessment and plan: Cont omeprazole 20mg daily. No current symptoms. (5) Hypertension: Status: Chronic Assessment and plan: Taking no antihypertensive meds. Permissive hypertension until CVA w/u complete. 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 (6) Paresthesia of right arm and leg: Status: Acute Assessment and plan: Myofascial vs CVA. If MRI negative, plain films of the C-spine and L-spine might be helpful to look for evidence of nerve compression. CVA workup to also include telemetry, PT, echocardiogram, aspirin initiated. Neurology consulted. History of Present Illness History of Present Illness Chief Complaint: Dizziness and R sided paresthesia Narrative: This is an 86 yo female with a PMH of HTN described as white-coat HTN, NSC lung cancer s/p tx, HLD, GERD, anemia. She presented to the ED with c/o feeling dizzy while getting ready for bed on the evening of presentation. She endorsed to me upon admission that she has intermittent dizziness/spinning or moving sensation and had a very brief episode when she turned her head during my exam. She then also noted a numbness in her right arm from her neck down. She did, after being admitted, relate that she was sleeping on that arm. She also noted a stiffness in her neck. She also, later during the time in the ED, noted her R leg was also feeling numb, like it was asleep. She denied any recent falls/trauma. No febrile illness. No slurred speech, difficulty with word finding, focal weakness of an extremity. No confusion. No N/V with the dizziness. No CP/palpitations. Her initial BP was elevated at 180/101. Subsequently improved to 174/87. Pt currently not taking any antihypertensive medication at home. Her labs were unremarkable other than a magnesium of 1.6. Magnesium 800mg po administered in the ED. CT head showed mild nonspecific hypodensities of the periventricular and deep subcortical white matter but no acute pathologies. ASA 325 mg administered. Review of Systems All systems reviewed & are unremarkable except as noted in HPI and below PFSH All Active Problems (Updated 06/20/22 @ 04:26 by Bradly Echavarria MD) Paresthesia of right arm and leg (Acute) Hypertension (Chronic) Dizziness (Acute) Hypomagnesemia (Acute) Right arm numbness (Acute) Transient ischemic attack (TIA) (Acute) Chronic pruritic rash in adult (Acute) [facility] [place] White coat syndrome with high blood pressure but without hypertension (Acute) History of basal cell carcinoma (BCC) (Acute) Epistaxis (Acute) 09/04/20 Tetracaine and Silver Nitrate application for control of bleeding by ENT. Xerosis cutis (Acute) Eczema craquele (Acute) [place] [facility] [place] [facility] [place] Cough (Acute) Burning with urination (Acute) Pain with urination (Acute) Skin tag (Acute) Basal cell carcinoma of neck (Acute) 03/11/19 Dr Shah Dysfunction of both eustachian tubes (Acute) Neoplasm of unspecified behavior of bone, soft tissue, and skin (Acute) Dr Pablo Krueger lateral neck-shave excision 02/18/19 Polyp of colon (Acute 03/07/17) Actinic keratoses (Acute) Non-small cell cancer of left lung (Chronic) ([facility] [place] report 05/28/18) Stage 1a adenocarcinoma of the left upper lobe. Possible left upper lobe lung local recurrent adenocarcinoma original diagnosis in November 2014 as stage Ia disease resected in [place]. (Meghan Schwartz MD) Chronic GERD (Chronic) Hyperlipidemia (Chronic) Pulmonary nodule (Chronic 03/07/17) 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, s/p segmentectomy Medical History History of basal cell carcinoma Dr Pablo Krueger confucianism Surgical History (L)Lingulectomy(Segmentectomy) (11/11/14) Appendectomy (~1969) Cholecystectomy (~2007) Family History Mother Stroke Father Stroke Sister Diabetes Social History Smoking/Tobacco Use Status: Former Tobacco Use Smoking risk assessment performed?: Yes Alcohol Intake: never Drug use: Never Substance use type: does not use Adopted: No Caregiver/Support person: No Housing: house Number of Children: 0 Communication Needs: Hard of Hearing Education Level: high school current occupation: retired Pets and animals: No Do you think of yourself as: straight/heterosexual Current gender identity: female What is your relationship status?: How often do you talk on the phone with friends or family?: three or more times per week How often do you get together with friends or relatives?: once per week Do you belong to any clubs or organized social groups?: yes Panel score (0-1 are the most socially isolated patients): 2 What type of physical activity do you participate in: regular exercise and other Details: dances (has not done so during the past 12mo due to COVID) 08/21/20 Frequency: 3-4 times per week Seatbelt use: always Drive intox or ride w/intox canal driver: No Working smoke detector in home: Yes Fire extinguisher in home: Yes Carbon monox detector in home: Yes Do you feel safe at home: Yes Do you feel safe in your relationship?: Yes Meds Allergies and Home Medications Allergies Allergy/AdvReac Type Severity Reaction Status Date / Time No Known Allergies Allergy Verified 06/19/22 22:12 Home Medications Medication Instructions Recorded Confirmed Type vitamin B comp and C no.3 15 mg-10 1 cap PO DAILY 08/11/20 06/20/22 History mg-50 mg-5 mg-300 mg capsule (B Complex Plus Vitamin C) ascorbic acid (vitamin C) 1,000 mg 1 g PO DAILY 09/08/20 06/20/22 History tablet albuterol sulfate 90 mcg/actuation 2 puff inhalation Q6H PRN 03/11/21 06/20/22 Rx aerosol inhaler shortness of breath or wheezing #18 grams atorvastatin 10 mg tablet 10 mg PO DAILY #90 tabs 02/24/22 06/20/22 Rx omeprazole 20 mg capsule,delayed 20 mg PO DAILY #90 caps 02/24/22 06/20/22 Rx release Exam Narrative Exam Narrative: General: Lying in bed reading a book. She places her hearing aids in ears to better converse. Pleasant and cooperative. Head: Normocephalic, atraumatic HEENT: sclera clear. Pupils equal. Neck: Trachea midline. No JVD Cardiovascular: RRR, S1, S2. Lungs: Clear. Nonlabored respiration. GI: NT, ND. Exts: No edema or calf tenderness. Skin: No rashes, lesions. Normal turgor. Neurologic: Alert and oriented x 3. cranial nerves II through XII intact grossly. No diminished or abnormal sensation of left arm/hand compared to right. No dysmetria. No dysdiadochokinesia. No pronator drift. 5 out of 5 bilateral upper and lower extremity strength. Psychiatric: Affect normal. Speech is clear. Results Labs 06/19/22 22:11 06/19/22 22:11 Labs: Laboratory Results - last 24 hr 06/19/22 06/19/22 06/19/22 22:11 22:11 23:41 WBC 9.77 RBC 4.09 Hgb 12.3 Hct 36.1 MCV 88 MCH 30.1 MCHC 34.1 RDW 12.1 Plt Count 144 MPV 12.7 H Immature Gran % 0.1 Neutrophils % 38.7 Lymphocytes % 51.1 Monocytes % 8.3 Eosinophils % 1.3 Basophils % 0.5 Nucleated RBC % 0.0 Absolute Neutrophils 3.78 Absolute Lymphocytes 4.99 H Absolute Monocytes 0.81 H Absolute Eosinophils 0.13 Absolute Basophils 0.05 Sodium 135 L Potassium 3.5 Chloride 100 Carbon Dioxide 25.1 Anion Gap 9.9 BUN 21 H Creatinine 0.8 Est GFR (CKD-EPI 2020) 72.16 Glucose 134 H Calcium 8.9 Magnesium 1.6 L Total Bilirubin 0.5 AST 19 ALT 22 Alkaline Phosphatase 58 Troponin I < 50 Total Protein 7.4 Albumin 3.5 COVID-19 Source Nasal/Nares SARS-CoV-2 (PCR) Negative 06/20/22 01:25 WBC RBC Hgb Hct MCV MCH MCHC RDW Plt Count MPV Immature Gran % Neutrophils % Lymphocytes % Monocytes % Eosinophils % Basophils % Nucleated RBC % Absolute Neutrophils Absolute Lymphocytes Absolute Monocytes Absolute Eosinophils Absolute Basophils Sodium Potassium Chloride Carbon Dioxide Anion Gap BUN Creatinine Est GFR (CKD-EPI 2020) Glucose Calcium Magnesium Total Bilirubin AST ALT Alkaline Phosphatase Troponin I < 50 Total Protein Albumin COVID-19 Source SARS-CoV-2 (PCR) Last Vital Signs Temp 35.6 C L 06/20/22 01:07 Pulse 96 H 06/20/22 01:07 Resp 16 06/20/22 01:07 BP 174/87 H 06/20/22 01:07 Pulse Ox 96 06/20/22 01:07 Time Spent Time spent with Patient: 40-54 minutes Time was spent: preparing to see the patient(eg.review tests), obtaining and/or reviewing separately otained hiistory, ordering medications,tests, procedures, indepentently interpreting results and counseling the patient
[2022-06-20 06:49] LABS: Anion Gap 8.1 mmol/L (3-11); BUN 17 mg/dL (7-18); CO2 28.9 mmol/L (21.0-32.0); CREATININE 0.7 mg/dL (0.55-1.02); Calcium 9.2 mg/dL (8.5-10.1); Chloride 96 mmol/L (98-107); Glucose 140 mg/dL (74-106); Magnesium 1.6 mg/dL (1.8-2.4); Potassium 3.4 mmol/L (3.5-5.1); Sodium 133 mmol/L (136-145)
--- NOTE | 2022-06-20 08:42 | INITIAL_ITS ---
- If Service Date Differs Date of service: 06/20/22 Time of Service: 08:43 Care Management Initial Assess REASON FOR HOSPITALIZATION:: righty sided paresthesia PAST MEDICAL HISTORY/PAST SURGICAL HISTORY:: All Active Problems (Updated 06/20/22 @ 04:26 by Bradly Echavarria MD). Paresthesia of right arm and leg (Acute). Hypertension (Chronic). Dizziness (Acute). Hypomagnesemia (Acute). Right arm numbness (Acute). Transient ischemic attack (TIA) (Acute). Chronic pruritic rash in adult (Acute). [facility] Dermatology. White coat syndrome with high blood pressure but without hypertension (Acute). History of basal cell carcinoma (BCC) (Acute). Epistaxis (Acute). 09/04/20 Tetracaine and Silver Nitrate application for control of bleeding by ENT. Xerosis cutis (Acute). Eczema craquele (Acute). 05/20/20 [facility] [place]. 07/15/20 Dr Tenorio [facility] [place]. Cough (Acute). Burning with urination (Acute). Pain with urination (Acute). Skin tag (Acute). Basal cell carcinoma of neck (Acute). 03/11/19 Dr Shah. Dysfunction of both eustachian tubes (Acute). Neoplasm of unspecified behavior of bone, soft tissue, and skin (Acute). Dr Shah. L lateral neck-shave excision 02/18/19. Polyp of colon (Acute 03/07/17). Actinic keratoses (Acute). Non-small cell cancer of left lung (Chronic). ([facility] [place] report 05/28/18) Stage 1a adenocarcinoma of the left upper lobe. Possible left upper lobe lung local recurrent adenocarcinoma original diagnosis in November 2014 as stage Ia disease resected in [place]. (Meghan Schwartz MD). Chronic GERD (Chronic). Hyperlipidemia (Chronic). Pulmonary nodule (Chronic 03/07/17). 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). Stage Ia adenocarcinoma, s/p segmentectomy. Medical History . History of basal cell carcinoma. Dr Shah. 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 Surgical History . (L)Lingulectomy(Segmentectomy) (11/11/14). Appendectomy (~1969). Cholecystectomy (~2007) PREVIOUS FUNCTIONAL STATUS/SOCIAL/FAMILY SUPPORTS:: Qing lives alone in a single family home in [place] She does not have any children but does have family in the area. 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 She is independent at baseline and does not receive any community services. CURRENT FUNCTIONAL STATUS:: Qing was sitting up in a chair when CM met with her. She was very pleasant and engaged easily with CM. Qing explained how she moved to [place] for 30 years after her first marriage ended in divorce. She shared that she loved it there. She also had a vacation home in [place] which she enjoyed. When asked where she would prefer to live, without hesitation, she stated [place]. Qing enjoys [employer] dancing, music shows and is an avid [employer] music fan. Her second owned an automotive store and did stock car racing. Qing shared that she enjoyed going to shows with her and met, and was photographed with, Gaurav Tiwari in [place]. ADVANCE DIRECTIVES:: none on file Has patient been provided with info about the portal/API?: Yes Did the patient sign up for the portal?: No CODE STATUS:: DNR/DNI INSURANCE COVERAGE / FINANCIAL ISSUES:: Medicare. [employer] CURRENT HOME/COMMUNITY SERVICES/EQUIPMENT:: none PRIMARY CARE PHYSICIAN:: Lele Cannon POTENTIAL DISCHARGE NEEDS:: Follow up with PCP and plan of care PATIENT/FAMILY EDUCATION NEEDS:: Review of discharge instructions, limitations, activity, follow up plan, and discuss Ask Me Three. TRANSPORTATION:: via private vehicle with family PLAN:: Anticipate Qing will be discharged home with no new services when medically cleared. She will follow up with her PCP and plan of care and transport with family. CM will continue to support Qing and assess for discharge needs.
[2022-06-20 08:53] LABS: Lab Add On Test DONE
[2022-06-20] MEDS: LORazepam 2 MG/ML VIAL 0.5 MG IVP (08:57)
[2022-06-20 09:34] LABS: Hemoglobin A1C 5.7 % (<5.7)
[2022-06-20 09:54] LABS: Calculated LDL 52 mg/dL (<100); Cholesterol 145 mg/dL (<200); HDL Cholesterol 85 mg/dL (40-60); TSH 1.65 uIU/mL (0.36-3.74); Triglyceride 42 mg/dL (<150); Vitamin B12 670 pg/mL (193-986)
[2022-06-20] MEDS: Potassium Chloride 20 MEQ TABCR 40 MEQ PO (10:00)
[2022-06-20] MEDS: Omeprazole 20 MG CAPCR PO (10:00)
[2022-06-20] MEDS: MAGNESIUM SULFATE 2 GM/50 ML BAG IVPB (10:01)
[2022-06-20] MEDS: Heparin 5,000 UNITS/ML VIAL 5000 UNITS SC (10:01)
[2022-06-20] MEDS: Aspirin E.C. 81 MG TABEC PO (10:01)
[2022-06-20] MEDS: Atorvastatin 10 MG TAB PO (10:01)
--- NOTE | 2022-06-20 16:24 | PT.INTREAT ---
Date of service: 06/20/22 Time of Service: 15:50 PT Notes Visit Reasons: Right Sided Paresthesia Inpatient Physical Therapy Treatment Note [facility] Date: 06/20/2022 PRECAUTIONS: Fall, Activity as tolerated SUBJECTIVE: Qing is pleasant and agreeable to participating in PT. She states that she is feeling a little better. OBJECTIVE: PAIN: No c/o pain BED MOBILITY/TRANSFERS Sit-stand: S Stand-sit: S GAIT Assistive Device: FWW Weight bearing: Full Assist: SBA Distance: 350' Deviation: Gait mechanics unremarkable, slow pacing STAIRS: Up/down 3x4 and 2x6 using B rails and a step-to pattern with supervision TOILETING: Patient toileted with supervision for transfers ASSESSMENT: Patient tolerated session well without complaint. She was able to tolerate a progression in gait distance with FWW support and SBA. She was also able to tolerate the addition of stair training, which she tolerated well without complaint. PLAN: Continue with general conditioning and gait and transfer training for improved activity tolerance, as appropriate. TREATMENT CODE/TIME: 25 minutes; 29713 x2 (15:50)
--- NOTE | 2022-06-20 16:40 | W.NEUROCONSU ---
Date of service: 06/20/22 Time of Service: 16:41 Assessment and Plan Assessment and plan (1) Hemorrhagic stroke: Status: Acute (2) Vascular malformation: Status: Acute (3) Hypertension: Status: Chronic Assessment and plan: It appears that she has had an acute micro-hemorrhagic stroke in the L midbrain/karmen secondary to an underlying vascular malformation. There is also a question of L MCA aneurysm. Luckily her symptoms seem to be improving with only finding on exam being +Babinski bilaterally - which I don't think can be explained by the vascular malformation but could be explained by her diffuse chronic vascular changes. -stop aspirin and heparin -treat SBP for goal <150 -repeat CTH in am to see evoluation of hemorrhage -CTA head/neck in am to evaluate vascular formation and look for ?incidental aneurysm -MRI c-spine as outpatient work-up for +bilateral Babinski - she has no myelopathic symptoms at this time -pending above, will likely need neurosurgery referral which I introduced to her today History of Present Illness History of Present Illness Chief Complaint: paraesthesias Narrative: Handedness: right. Ms. Bailey is an 86 year-old woman with white coat hypertension, hyperlipidemia, GERD, IBS, prior lung non small-cell adenocarcinoma s/p segmentectomy, and prior skin cancers (BCC). Her daughter Sera is at bedside. Ms. Bailey lives alone. On 06/19/22, she spent some time working a puzzle in which her head/neck was bent forward. She started to developed stom stiffness/tiredness in her neck such that she opted to stop with her puzzle and get ready for bed. It was at that time that she noted acute onset of vertigo and nausea as well as a numbness/prickling sensation throughout her right arm and hand. She had a feeling of generalized weakness and shakiness. She felt like her brain wasn't clear. She unlocked her front door and then went to her room and called 911. While waiting, she noted numb/prickling of her lips and tongue (unclear if unilateral or not). By the time she arrived in the ER, she was then noting similar tingling/numbness in the right leg. She had no headache. Her initial BP was elevated at 180/100. Her CT head was read as negative by remote reader while in the ER, thus she was worked up and treated for ischemic stroke - though bruno was not given tPA due to minor symptoms. She was started on ASA 325mg and her BP was allowed to remain high. In regards to her symptoms, she has had improvement with residual numbness in the right hand/arm and residual vertigo/nausea - the vertigo/nausea seems to have a positional element though also seems to be present at all times as well. She has no prior [place] in [facility] [place] [facility] for prior comparisons. She has no imbalance. She has had no change in her bowel/bladder habits. Work-up: -CTH (06/19/22): L pontine/midbrain acute blood vs calcification. I reviewed these images personally and this is my personal interpretation. -MRI brain (06/20/22): L pontine and midbrain vascular formation with ?associated microhemorrhage. Old left cerebellar microhemorrhage. Moderate chronic small vessel disease changes c/w age. ?L MCA aneurysm. I reviewed these images personally and this is my personal interpretation. -Labs: Hgb 12.3, Na 135, Mag 1.6, tropx2 neg, LDL 52, A1c 5.7, TSH 1.65, B12 670 -TTE (06/20/22): EF 60% with no wall motion abnormalities. LA normal. Bubble not done. Review of Systems All systems reviewed & are unremarkable except as noted in HPI and below PFSH All Active Problems (Updated 06/20/22 @ 20:10 by Priya Dc MD) Vascular malformation (Acute) Hemorrhagic stroke (Acute) Paresthesia of right arm and leg (Acute) Hypertension (Chronic) Dizziness (Acute) Hypomagnesemia (Acute) Right arm numbness (Acute) Transient ischemic attack (TIA) (Acute) Chronic pruritic rash in adult (Acute) [facility] [place] White coat syndrome with high blood pressure but without hypertension (Acute) History of basal cell carcinoma (BCC) (Acute) Epistaxis (Acute) 09/04/20 Tetracaine and Silver Nitrate application for control of bleeding by ENT. Xerosis cutis (Acute) Eczema craquele (Acute) 05/20/20 [place] [facility] [place]20 [place] Tenorio [facility] Cough (Acute) Burning with urination (Acute) Pain with urination (Acute) Skin tag (Acute) Basal cell carcinoma of neck (Acute) 03/11/19 Dr Shah Dysfunction of both eustachian tubes (Acute) Neoplasm of unspecified behavior of bone, soft tissue, and skin (Acute) Dr Pablo Krueger lateral neck-shave excision 02/18/19 Polyp of colon (Acute 03/07/17) Actinic keratoses (Acute) Non-small cell cancer of left lung (Chronic) ([facility] [place] 05/28/18) Stage 1a adenocarcinoma of the left upper lobe. Possible left upper lobe lung local recurrent adenocarcinoma original diagnosis in November 2014 as stage Ia disease resected in [place]. (Meghan Schwartz MD) Chronic GERD (Chronic) Hyperlipidemia (Chronic) Pulmonary nodule (Chronic 03/07/17) 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, s/p segmentectomy Medical History History of basal cell carcinoma Dr Pablo Krueger jehovah's witness Surgical History (L)Lingulectomy(Segmentectomy) (11/11/14) Appendectomy (~1969) Cholecystectomy (~2007) Family History Mother Stroke Father Stroke Sister Diabetes Social History Smoking/Tobacco Use Status: Former Tobacco Use Smoking risk assessment performed?: Yes Alcohol Intake: never Drug use: Never Substance use type: does not use Adopted: No Caregiver/Support person: No Housing: house Number of Children: 0 Communication Needs: Hard of Hearing Education Level: high school current occupation: retired Pets and animals: No Do you think of yourself as: straight/heterosexual Current gender identity: female What is your relationship status?: How often do you talk on the phone with friends or family?: three or more times per week How often do you get together with friends or relatives?: once per week Do you belong to any clubs or organized social groups?: yes Panel score (0-1 are the most socially isolated patients): 2 What type of physical activity do you participate in: regular exercise and other Details: dances (has not done so during the past 12mo due to COVID) 08/21/20 Frequency: 3-4 times per week Seatbelt use: always Drive intox or ride w/intox 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 Working smoke detector in home: Yes Fire extinguisher in home: Yes Carbon monox detector in home: Yes Do you feel safe at home: Yes Do you feel safe in your relationship?: Yes Visit Medication and Allergies Active Medications Generic Name Dose Route Start Last Admin Trade Name Freq PRN Reason Stop Dose Admin Acetaminophen 0 mg 06/19/22 23:44 Acetaminophen 325 Mg Tab PO Q4H PRN PRN Al Hydrox/Mg Hydrox/Simethicone 30 ml 06/19/22 23:44 06/20/22 01:39 Mylanta Suspension 30 Ml Cup PO 30 ml Q2H PRN PRN Administration Albuterol Sulfate 2 puff 06/19/22 23:49 Albuterol Hfa 8 Gm 60 Puff Inh IH Q6H PRN PRN shortness of breath or wheezing Amlodipine Besylate 5 mg 06/21/22 08:30 Amlodipine 5 Mg Tab PO DAILY LICHA Aspirin 81 mg 06/20/22 08:30 06/20/22 10:01 Aspirin E.C. 81 Mg Tabec PO 81 mg DAILY LICHA Administration Atorvastatin Calcium 10 mg 06/20/22 08:30 06/20/22 10:01 Atorvastatin 10 Mg Tab PO 10 mg DAILY LICHA Administration Device 1 each 06/19/22 23:45 Inhaler, Assist Device MC DIRECTED LICHA Dimethicone/Zinc Oxide 0 gm 06/19/22 23:39 Danisha Protect Cream 142 Gm Tube TP PRN PRN Heparin Sodium (Porcine) 5,000 units 06/20/22 08:00 06/20/22 10:01 Heparin 5,000 Units/Ml Vial SC 5,000 units Q8H LICHA Administration Omeprazole 20 mg 06/20/22 08:30 06/20/22 10:00 Omeprazole 20 Mg Capcr PO 20 mg DAILY LICHA Administration Polyethylene Glycol 17 gm 06/19/22 23:39 Polyethylene Glycol 3350 17 Gm Packet PO DAILY PRN PRN Constipation Allergies No Known Allergies Allergy (Verified 06/19/22 22:12) Exam Narrative Exam Narrative: Physical Exam: Gen: Patient of apparent stated age, NAD Head and face: no facial or cranial abnormalities Neck: Supple, no meningismus, no occipital tenderness CV: + S1, S2, RRR, no murmur Resp: CTA B/L Abd: soft, nontender, nondistended Ext: No edema. No clubbing or cyanosis. No bony deformity. Neuro Exam: Language: fluency, naming, repetition, and comprehension intact; Mental Status: AAOx3, current events and fund of knowledge limited Speech: no dysarthria Cranial nerves: Funduscopy: not performed CN II: visual ryan intact CN III, IV, : extraocular movements intact, no nystagmus, pupils symmetric and reactive to light CN V: face sensation intact to LT and PP CN VII: no facial asymmetry noted CN VIII: hearing intact bilaterally CN IX, X: palate rises symmetrically CN XI: trapezius/SCM 5/5 bilaterally CN XII: protrudes tongue symmetrically Sensory: intact to LT, PP, and joint position in all extremities; reduced vibration in the toes Motor: bulk and tone intact. Fine motor movements intact bilaterally. No pronator drift. Strength 5/5 throughout including the deltoids, biceps, triceps, wrist extensors, hip flexors, knee flexors, knee extensors, ankle flexors, and ankle extensors except 4++/5 bilateral hip flexors. Reflexes: 2+ at the biceps, triceps, brachioradialis, patella, and achilles tendons bilaterally; +Babinski bilaterally; Coordination: FTN and HTS intact bilaterally Gait: not seen Results Last Vital Signs Temp 97.9 F 06/20/22 15:05 Pulse 94 H 06/20/22 15:05 Resp 16 06/20/22 15:05 BP 173/60 H 06/20/22 15:05 Pulse Ox 95 06/20/22 15:05 Labs 06/19/22 22:11 06/20/22 06:10 Labs: Laboratory Results - last 24 hr 06/19/22 06/19/22 06/19/22 22:11 22:11 23:41 WBC 9.77 RBC 4.09 Hgb 12.3 Hct 36.1 MCV 88 MCH 30.1 MCHC 34.1 RDW 12.1 Plt Count 144 MPV 12.7 H Immature Gran % 0.1 Neutrophils % 38.7 Lymphocytes % 51.1 Monocytes % 8.3 Eosinophils % 1.3 Basophils % 0.5 Nucleated RBC % 0.0 Absolute Neutrophils 3.78 Absolute Lymphocytes 4.99 H Absolute Monocytes 0.81 H Absolute Eosinophils 0.13 Absolute Basophils 0.05 Sodium 135 L Potassium 3.5 Chloride 100 Carbon Dioxide 25.1 Anion Gap 9.9 BUN 21 H Creatinine 0.8 Est GFR (CKD-EPI 2020) 72.16 Glucose 134 H Hemoglobin A1c Calcium 8.9 Magnesium 1.6 L Total Bilirubin 0.5 AST 19 ALT 22 Alkaline Phosphatase 58 Troponin I < 50 Total Protein 7.4 Albumin 3.5 Triglycerides Total Cholesterol LDL Cholesterol, Calc HDL Cholesterol Vitamin B12 TSH COVID-19 Source Nasal/Nares SARS-CoV-2 (PCR) Negative Add-On Test Request 06/20/22 06/20/22 06/20/22 01:25 06:10 06:10 WBC RBC Hgb Hct MCV MCH MCHC RDW Plt Count MPV Immature Gran % Neutrophils % Lymphocytes % Monocytes % Eosinophils % Basophils % Nucleated RBC % Absolute Neutrophils Absolute Lymphocytes Absolute Monocytes Absolute Eosinophils Absolute Basophils Sodium 133 L Potassium 3.4 L Chloride 96 L Carbon Dioxide 28.9 Anion Gap 8.1 BUN 17 Creatinine 0.7 Est GFR (CKD-EPI 2020) 84.70 Glucose 140 H Hemoglobin A1c Calcium 9.2 Magnesium 1.6 L Total Bilirubin AST ALT Alkaline Phosphatase Troponin I < 50 Total Protein Albumin Triglycerides Total Cholesterol LDL Cholesterol, Calc HDL Cholesterol Vitamin B12 TSH COVID-19 Source SARS-CoV-2 (PCR) Add-On Test Request DONE 06/20/22 06/20/22 06:10 06:10 WBC RBC Hgb Hct MCV MCH MCHC RDW Plt Count MPV Immature Gran % Neutrophils % Lymphocytes % Monocytes % Eosinophils % Basophils % Nucleated RBC % Absolute Neutrophils Absolute Lymphocytes Absolute Monocytes Absolute Eosinophils Absolute Basophils Sodium Potassium Chloride Carbon Dioxide Anion Gap BUN Creatinine Est GFR (CKD-EPI 2020) Glucose Hemoglobin A1c 5.7 Calcium Magnesium Total Bilirubin AST ALT Alkaline Phosphatase Troponin I Total Protein Albumin Triglycerides 42 Total Cholesterol 145 LDL Cholesterol, Calc 52 HDL Cholesterol 85 Vitamin B12 670 TSH 1.65 COVID-19 Source SARS-CoV-2 (PCR) Add-On Test Request
--- NOTE | 2022-06-20 16:44 | PT.INIE ---
Date of service: 06/20/22 Time of Service: 10:09 PT Notes Visit Reasons: Right Sided Paresthesia Physical Therapy Inpatient Initial Evaluation Date: 06/20/2022 Referring Doctor: Bradly Echavarria MD PT Orders: PT CONSULT: Eval/Treat Precautions: Fall. Standard. Activity as tolerated. Patient Profile/Admitting Diagnosis: Qing is an 86-year-old female who presented to the ED on 06/19/2022 with chief complaint of right arm numbness and dizziness. Patient is admitted to [facility] for further monitoring and testing for CVA versus TIA. Patient with a diagnosis of dizziness which Dr. Burns are believed to be vertiginous in nature, hypomagnesemia, hyperlipidemia, GERD, and paresthesias of right arm and leg. PMHX: All Active Problems?(Updated 06/20/22 @ 04:26 by Bradly Echavarria MD) Paresthesia of right arm and leg (Acute) Hypertension (Chronic) Dizziness (Acute) Hypomagnesemia (Acute) Right arm numbness (Acute) Transient ischemic attack (TIA) (Acute) Chronic pruritic rash in adult (Acute) [facility] [place] White coat syndrome with high blood pressure but without hypertension (Acute) History of basal cell carcinoma (BCC) (Acute) Epistaxis (Acute) 09/04/20 Tetracaine and Silver Nitrate application for control of bleeding by ENT.Xerosis cutis (Acute) Eczema craquele (Acute) 05/20/20 [place] [facility] [place] [facility]) Burning with urination (Acute) Pain with urination (Acute) Skin tag (Acute) Basal cell carcinoma of neck (Acute) 03/11/19 Dr Shah Dysfunction of both eustachian tubes (Acute) Neoplasm of unspecified behavior of bone, soft tissue, and skin (Acute) Dr Shah L lateral neck-shave excision 02/18/19Polyp of colon (Acute 03/07/17) Actinic keratoses (Acute) Non-small cell cancer of left lung (Chronic) ([facility] report 05/28/18) Stage 1a adenocarcinoma of the left upper lobe.? Possible left upper lobe lung local recurrent adenocarcinoma original diagnosis in November 2014 as stage Ia disease resected in [place]. (Meghan Schwartz MD)Chronic GERD (Chronic) Hyperlipidemia (Chronic) Pulmonary nodule (Chronic 03/07/17) 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, s/p segmentectomy Medical History? History of basal cell carcinoma Dr Pablo ash Surgical History? (L)Lingulectomy(Segmentectomy) (11/11/14) Appendectomy (~1969) Cholecystectomy (~2007) Social History/Home Situation: Patient lives alone in a private home with 2 steps to enter with rails on both sides. Family lives close by and are involved with her on a regular basis. Independent with all aspects of ADLs prior to admission. Still drives. Denies falls in the past year. Equipment Owned/DME: None but sons has a FWW that patient may be able to use if needed Subjective: Reports that she still has tingling sensation in her whole whole right upper extremity on admission. Adds that the right lower extremity started to feel the same hours after her arrival at the hospital. Denies headache, chest pain, and lightheadedness throughout session. Objective: General Observation: Supine in bed. In NAD. Mental Status: Alert and oriented as to person, place, time, and purpose. Able to pay attention, focus, and respond appropriately. Pain: Denies ROM: Right Upper Extremity: Shoulder Flexion WFL. Shoulder abduction WFL. Elbow flexion WFL. Wrist flexion WFL. Functional opening and closing of hand WFL. Left Upper Extremity: Shoulder Flexion WFL. Shoulder abduction WFL. Elbow flexion WFL. Wrist flexion WFL. Functional opening and closing of hand WFL. Right Lower Extremity: Hip flexion WFL. Hip abduction WFL. Knee flexion WFL. Ankle dorsiflexion WFL. Ankle plantarflexion WFL. Left Lower Extremity: Hip flexion WFL. Hip abduction WFL. Knee flexion WFL. Ankle dorsiflexion WFL. Ankle plantarflexion WFL. Strength: Right Upper Extremity: Shoulder flexors 4/5. Shoulder abductors 4/5. Elbow flexors 5/5. Elbow extensors 4/5. [employer] Consultant strong. Left Upper Extremity: Shoulder flexors 4/5. Shoulder abductors 4/5. Elbow flexors 5/5. Elbow extensors 4/5. [employer] Consultant strong. Right Lower Extremity: Hip flexors 4/5. Hip abductors 4/5. Knee flexors 5/5. Knee extensors 4/5. Ankle dorsiflexors 4-/5. Ankle plantarflexors 4/5. Left Lower Extremity: Hip flexors 4/5. Hip abductors 4/5. Knee flexors 5/5. Knee extensors 4/5. Ankle dorsiflexors 4-/5. Ankle plantarflexors 4/5. Bed Mobility/Transfers: Supine to sit contact-guard assist Sit to stand contact-guard assist Stand to sit standby assist Gait: Instructed patient with level surface ambulation of 150 feet requiring contact guard assist. Denies any difference in her gait pattern from before admission. Doyleaghter confirms that walking is at baseline speed. Feels more stable using the FWW than without it, prefers the use of walker for now. Balance: Static Sitting: Normla Dynamic Sittingal Normal Static Standing: Fair Dynamic Standing: Fair Special Tests: Mobility Limitations Standardized Measure [facility] AM-PAC 6 clicks Basic Mobility Inpatient Short Form: Raw Score: 18 CMS Score: 47% deficit NEURO: Romberg test: Positive Babinski Reflex: Negative UE/LE strength: Symmetric 4-stage balance test: Unable to mainatain all 4 positions safely Informed Consent/Education: Patient was instructed in purpose of PT consult and plan of care. Agreeable to proceed with established PT POC to achieve personal goals. Assessment: UE/LE strength symmetric. Mild pronator drift seen on the L UE. Has good family support. Needs use of front wheeled walker to maximize independence and reduce fall risk at home. Patient presents with clinical signs and symptoms consistent with current/admitting diagnoses that have resulted to mobility limitations, gait instability, generalized weakness, and overall ADL decline as demonstrated by the following impairment level findings: 1. Impaired sitting/standing balance 2. Impaired activity tolerance 3. Paresthesias in R UE/LE Impairments are contributing to the following functional limitations: 1. Decline in bed mobility skills 2. Decline in transfer skills 3. Difficulty with ambulation without assistive device and physical assistance 4. Increased completion time for mobility ADL performance 5. Increased risk for falls 6. Difficulty with managing steps alone safely Patient is assessed as a 01429 moderatecomplexity based on the following: History: 86-year-old female with past medical history as indicated above Examination: Demonstrable impairment in strength, balance, and mobility level with underlying impairments and functional limitations as exhibited above as well as deficit score of 47% utilizing the [facility] Mobility Inpatient Short Form Presentation: Evolving Decision Makin moderate complexity Goals: Goals X1 week 1. Supine-Sit independent 2. Sit-Supine independent 3. Sit-Stand independent 4. Stand-Sit independent with FWW 5. Bed-Chair independent with FWW 6. Chair-Bed independent with FWW 7. Independent gait on level surface with use of FWW for at least 300 feet without report of pain nor dyspnea 8. Independent stair negotiation while holding onto B rails for at least 3 steps without report of pain nor dyspnea 9. Independent with home exercise program 10. Good static and dynamic standing balance/tolerance Plan of Care/Treatment Plan: 1-2x/day, 7 days/week x 1 week. Plan of care has been reviewed with the TREATING AND PUMPING SUPERVISOR providing the service under Physical Therapy direction. Initiate Physical Therapy intervention for pain management as needed, strengthening, bed mobility, transfers, gait, stairs, balance training, and use of assistive device. DISCHARGE RECOMMENDATIONS: [] Home with no services [] [X] Home with services. Home when medically cleared by hospitalist. Patient will benefit from home health PT services in order to progress mobility level using least restrictive assistive ambulatory device, assess home safety, identify additional equipment needs, and establish a functional maintenance program that will increase ability of patient to remain at home. [] Home with outpatient PT [] [] SNF for continued rehabilitation [] [] Staff Air Tactical Officer Care [] [] SNF versus LTC based on ability to participate and progress [] TREATMENT CODE/TIME: 62370 x 20 minutes, 9753 [id number] x 20 minutes beginning at 10:09 AM. Thank you for the opportunity to participate in the care of this patient. Nay Martínez PT, DPT, CLT [facility] [place], [place]
[2022-06-20] MEDS: amLODIPine 5 MG TAB PO (17:00)
--- NOTE | 2022-06-20 18:32 | PGE_ITS ---
Date of Service Date of service: 06/20/22 Time of Service: 18:33 Subjective Subjective Interval history since last seen: Patient seen in brief follow up. Ms Bailey states that she is feeling better. Her arm feels almost back to normal. Her RLE, lips and tongue all feel normal too. Her dizziness is better than before also but I haven't been in motion. Discussed case with Dr Dc: concern for a brain stem microhemorrhage. Asa and heparin d/c'ed. Will aim for BP control w/ target of SBP of about 160. For CT/CTA brain/neck tomorrow. Objective Last Vital Signs Temp 36.6 C 06/20/22 15:05 Pulse 94 H 06/20/22 15:05 Resp 16 06/20/22 15:05 BP 168/89 H 06/20/22 18:06 Pulse Ox 95 06/20/22 15:05 Laboratory Results - last 24 hr 06/19/22 06/19/22 06/19/22 22:11 22:11 23:41 WBC 9.77 RBC 4.09 Hgb 12.3 Hct 36.1 MCV 88 MCH 30.1 MCHC 34.1 RDW 12.1 Plt Count 144 MPV 12.7 H Immature Gran % 0.1 Neutrophils % 38.7 Lymphocytes % 51.1 Monocytes % 8.3 Eosinophils % 1.3 Basophils % 0.5 Nucleated RBC % 0.0 Absolute Neutrophils 3.78 Absolute Lymphocytes 4.99 H Absolute Monocytes 0.81 H Absolute Eosinophils 0.13 Absolute Basophils 0.05 Sodium 135 L Potassium 3.5 Chloride 100 Carbon Dioxide 25.1 Anion Gap 9.9 BUN 21 H Creatinine 0.8 Est GFR (CKD-EPI 2020) 72.16 Glucose 134 H Hemoglobin A1c Calcium 8.9 Magnesium 1.6 L Total Bilirubin 0.5 AST 19 ALT 22 Alkaline Phosphatase 58 Troponin I < 50 Total Protein 7.4 Albumin 3.5 Triglycerides Total Cholesterol LDL Cholesterol, Calc HDL Cholesterol Vitamin B12 TSH COVID-19 Source Nasal/Nares SARS-CoV-2 (PCR) Negative Add-On Test Request 06/20/22 06/20/22 06/20/22 01:25 06:10 06:10 WBC RBC Hgb Hct MCV MCH MCHC RDW Plt Count MPV Immature Gran % Neutrophils % Lymphocytes % Monocytes % Eosinophils % Basophils % Nucleated RBC % Absolute Neutrophils Absolute Lymphocytes Absolute Monocytes Absolute Eosinophils Absolute Basophils Sodium 133 L Potassium 3.4 L Chloride 96 L Carbon Dioxide 28.9 Anion Gap 8.1 BUN 17 Creatinine 0.7 Est GFR (CKD-EPI 2020) 84.70 Glucose 140 H Hemoglobin A1c Calcium 9.2 Magnesium 1.6 L Total Bilirubin AST ALT Alkaline Phosphatase Troponin I < 50 Total Protein Albumin Triglycerides Total Cholesterol LDL Cholesterol, Calc HDL Cholesterol Vitamin B12 TSH COVID-19 Source SARS-CoV-2 (PCR) Add-On Test Request DONE 06/20/22 06/20/22 06:10 06:10 WBC RBC Hgb Hct MCV MCH MCHC RDW Plt Count MPV Immature Gran % Neutrophils % Lymphocytes % Monocytes % Eosinophils % Basophils % Nucleated RBC % Absolute Neutrophils Absolute Lymphocytes Absolute Monocytes Absolute Eosinophils Absolute Basophils Sodium Potassium Chloride Carbon Dioxide Anion Gap BUN Creatinine Est GFR (CKD-EPI 2020) Glucose Hemoglobin A1c 5.7 Calcium Magnesium Total Bilirubin AST ALT Alkaline Phosphatase Troponin I Total Protein Albumin Triglycerides 42 Total Cholesterol 145 LDL Cholesterol, Calc 52 HDL Cholesterol 85 Vitamin B12 670 TSH 1.65 COVID-19 Source SARS-CoV-2 (PCR) Add-On Test Request Time Spent with Patient Time Spent with Patient: 25-34 minutes Time was spent: preparing to see the patient(eg.review tests), obtaining and/or reviewing separately otained hiistory, ordering medications,tests, procedures, referring, communicating with other health customer care voice consultant, indepentently interpreting results, counseling the patient and care coordination
[2022-06-21 02:51] VITALS: BP 151/77; PULSE 92; RESP 20; TEMP 36.1; O2SAT 92
[2022-06-21 06:51] LABS: HCT 39.7 % (36.0-46.0); HGB 12.9 g/dL (11.2-15.7); MCH 28.9 pg (27.0-33.0); MCHC 32.5 % (32.0-36.0); MCV 89 fL (80-95); RBC 4.46 10^6/uL (3.93-5.22); RDW-SD 39.1 fL; WBC 6.56 10^3/uL (4.4-10.8)
[2022-06-21 07:06] LABS: Anion Gap 7.8 mmol/L (3-11); BUN 14 mg/dL (7-18); CO2 29.2 mmol/L (21.0-32.0); CREATININE 0.8 mg/dL (0.55-1.02); Calcium 9.2 mg/dL (8.5-10.1); Chloride 101 mmol/L (98-107); Estimated GFR 72.16 (mL/min/1.73m2); Glucose 107 mg/dL (74-106); Magnesium 2.1 mg/dL (1.8-2.4); Potassium 3.9 mmol/L (3.5-5.1); Sodium 138 mmol/L (136-145)
[2022-06-21 07:07] VITALS: PULSE 80
[2022-06-21 07:27] VITALS: BP 159/77; PULSE 86; RESP 20; TEMP 36.7; O2SAT 93
[2022-06-21] MEDS: Atorvastatin 10 MG TAB PO (07:53)
[2022-06-21] MEDS: Omeprazole 20 MG CAPCR PO (07:53)
[2022-06-21] MEDS: amLODIPine 5 MG TAB PO (07:53)
--- NOTE | 2022-06-21 08:00 | DI.CT_ITS ---
Exam(s) CT BRAIN NECK CTA EXAM: CT BRAIN NECK CTA CLINICAL HISTORY: concern for AVM/aneurysm. TECHNIQUE: Imaging Protocol: Axial CT angiography was performed with multi-slice acquisition and mu lti-planar and 3D reconstructions. CONTRAST MATERIAL: Intravenous: Omnipaque 350 Contrast volume:structured data in ml COMPARISON: CT CT CHEST PE CTA from 08/06/[address] HEAD WO from 06/19/2022 FINDINGS: CT Head W/O and W contrast: Ventricles and Extra axial spaces: Normal in size and morphology for the patient's age. Hemorrhage: None. Cerebral parenchyma: Normal. Midline shift: None. Brainstem/Cerebellum: No change tiny high attenuation focus in the posterior left side of the karmen. No evidence of enhancement post contrast. Petechial hemorrhage versus calcification. Calvarium: Normal. Visualized Paranasal sinuses/Mastoids: Clear. Soft Tissues: Unremarkable. Enhancement: Normal. CTA Brain W: Internal Carotid Arteries: Petrous: Normal. Cavernous: Normal. Cerebral: Normal. Middle Cerebral Arteries: Right: No aneurysm, occlusion or significant stenosis. Left: No aneurysm, occlusion or significant stenosis. Anterior Cerebral Arteries: Right: No aneurysm, occlusion or significant stenosis. Left: No aneurysm, occlusion or significant stenosis. Posterior cerebral Arteries: Right: No aneurysm, occlusion or significant stenosis. Left: No aneurysm, occlusion or significant stenosis. Vertebral Arteries: Right: No aneurysm, occlusion or significant stenosis. Left: No aneurysm, occlusion or significant stenosis. Basilar Artery: No aneurysm, occlusion or significant stenosis. CTA Neck W: Common Carotid: Right: Minimal plaque at bulb. No dissection, occlusion or significant stenosis. Left: Minimal plaque at bulb. No dissection, occlusion or significant stenosis. External Carotid: Right: No dissection, occlusion or significant stenosis. Left: No dissection, occlusion or significant stenosis. Internal Carotid: Right: Mild focal plaque proximally. No dissection, occlusion or significant stenosis. Left: Mild plaque proximally. No dissection, occlusion or significant stenosis. Vertebral Artery: Right: No dissection, occlusion or significant stenosis. Left: No dissection, occlusion or significant stenosis. Lung Apices: Apical scarring. Bones: No acute abnormality. Soft Tissues: Normal. IMPRESSION: 1. Normal CTA examination of the [place]. 2. Head CT: Stable tiny focus of high attenuation in the left side of the karmen which does not show co ntrast enhancement. 3. CTA neck: Mild plaque at the common carotid bulbs and proximal internal carotid arteries without s ignificant stenosis, less than 50 percent bilaterally.. RADIATION DOSE DELIVERED: 1,755.25mGy.cm Total DLP DATA REPOSITORY: All CT scans at this facility are submitted to the National Radiology Data Registry (NRDR) Dose Index Registry (DIR) with the [employer] [place] [employer] (ACR). RADIATION OPTIMIZATION: All CT scans at this facility use at least one of these dose optimization te chniques: automated exposure control; mA and/or kV adjustment per patient size (includes targeted exa ms where dose is matched to clinical indication); or iterative reconstruction.
--- NOTE | 2022-06-21 08:51 | PDOC.CMPRO ---
- If Service Date Differs Date of service: 06/21/22 Time of Service: 08:51 Care Management Progress Note S/O: A:Qing isan 86 year old woman admitted on 06/20/22 with right sided paresthesia P:Anticipate Qing will be discharged home with no new services when medically cleared. She will follow up with her PCP and plan of care and transport with family. CM will continue to support Qing and assess for discharge needs.
[2022-06-21] MEDS: Normal Saline - Diluent 50 ML VIAL IJ (09:03)
[2022-06-21] MEDS: Omnipaque 350 MG/ML 500 ML BTL-Imaging package IJ (09:03)
--- NOTE | 2022-06-21 09:57 | OT.INIE ---
Occupational Therapy Notes Inpatient Occupational Therapy Evaluation Date: 06/21/22 Referring Doctor:Jenna Daniel MD OT Orders: Non Urgent Precautions: Fall, standard, DNR/DNI PATIENT PROFILE/ADMITTING DIAGNOSIS: Pt is a 86 year old female who was was admitted for the following dx of hypomagnesemia, hyperlipidemia, GERD, and paresthesias of right arm and leg. 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 (Acute) [facility] [place] DermatologyWhite coat syndrome with high blood pressure but without hypertension (Acute) History of basal cell carcinoma (BCC) (Acute) Epistaxis (Acute) 09/04/20 Tetracaine and Silver Nitrate application for control of bleeding by ENT.Xerosis cutis (Acute) Eczema craquele (Acute) [place]20[place] [facility] [place] [facility] [place]) Burning with urination (Acute) Pain with urination (Acute) Skin tag (Acute) Basal cell carcinoma of neck (Acute) 03/11/19 Dr Munguiaysfunction of both eustachian tubes (Acute) Neoplasm of unspecified behavior of bone, soft tissue, and skin (Acute) Dr Pablo Krueger lateral neck-shave excision 02/18/19Polyp of colon (Acute 03/07/17) Actinic keratoses (Acute) Non-small cell cancer of left lung (Chronic) [place] [place] Stage 1a adenocarcinoma of the left upper lobe.? Possible left upper lobe lung local recurrent adenocarcinoma original diagnosis in November 2014 as stage Ia disease resected in [place]. (Meghan Schwartz MD)Chronic GERD (Chronic) Hyperlipidemia (Chronic) Pulmonary nodule (Chronic 03/07/17) 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, s/p segmentectomy Medical History? History of basal cell carcinoma Dr Pablo Krueger congregational Surgical History? (L)Lingulectomy(Segmentectomy) (11/11/14) Appendectomy (~1969) Cholecystectomy (~2007) Social History/Home Situation: Pt states that she is (I) At her baseline level of function. She notes that she is able to perform her her ADLs without any (A). She has supports within her family and community. SUBJECTIVE: Pt states that she is doing well, she is getting ready to go down for testing and notes that she is doing better today than she was. She reports weakness in her (R) UE. OBJECTIVE: General Observation: Pleasant, agreeable to OT consult. Mental Status: A&Ox3 Pain: no c/o pain just weakness ROM: RUE AROM WFL L UE AROM WFL STRENGTH: RUE 4/5 throughout LUE 4/5 throughout FUNCTIONAL MOBILITY/ADLS: Sit-Stand SBA Stand-sit SBA BALANCE: Static sitting Normal Dynamic Sitting Normal Static Standing Normal Dynamic Standing Good SPECIAL TESTS: Daily Activity Limitations Standardized Measure [facility] AM -PAC ?6 clicks? Daily Activity Inpatient Short Form: Raw score: 20 INFORMED CONSENT/EDUCATION: Pt instructed in purpose of OT Consult and plan of care. ASSESSMENT: Patient is a 86-year-old female referred to occupational therapy services with diagnosis of hypomagnesemia, hyperlipidemia, GERD, and paresthesias of right arm and leg. Patient presents with clinical signs and symptoms consistent with dx, as demonstrated by the following impairment level findings/functional limitations: Impairments in ADL/IADL and leisure activities, decreased functional activity tolerance, weakness in (R) UE/tingling feeling, impairments in gross and fine motor control. AMPAC score 20 Patient is assessed as a Low 17326 complexity based on the following: History: see above Examination: see functional limitations as noted above Presentation: evolving Decision Making: AMPAC score 20 GOALS Goals x1 week 1. Transfers (I) 2. Dressing (I) in the seated position 3. Bathing (I) in shower 4. Toileting (I) on toilet 5. Eating (I) PLAN OF CARE/TREATMENT PLAN: 1x/day, 5 days/ week x 1week Initiate Occupational Therapy Services for bathing, dressing, grooming, toileting, eating, transfer training. DISCHARGE RECOMMENDATIONS Home with services when medically cleared per MD. TREATMENT TIME/MINUTES/CODES 86510, 18 minutes (08:35) Sabiha Altamirano OTR/[facility] [place]
[2022-06-21 11:04] VITALS: BP 151/93; PULSE 93; RESP 16; TEMP 36.9; O2SAT 95
--- NOTE | 2022-06-21 12:22 | PGE_ITS ---
Date of Service Date of service: 06/21/22 Time of Service: 12:22 Assessment and Plan Assessment and plan (1) Hemorrhagic stroke: Status: Acute (2) Vascular malformation: Status: Acute (3) Hypertension: Status: Chronic Assessment and plan: Repeat CT head unchanged today - thus not clear that she had a hemorrhage; and with lack of LINDO, nausea, emesis - seems unlikely. Thus, not clear what the etiology of her presenting symptoms are at all. 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 I recommend referral to [facility] [place] [facility] as further work-up. -L MCA aneurysm, ~5x7mm. I recommend referral to [facility] [place] [facility] as further work-up. -Mild L carotid stenosis. I would normally recommend the addition of aspirin, but with the above findings I am not recommending ASA at this time. She should continue BP control as per primary team. I discussed with her recommendations that she should track BP at home. Continue statin. -Mild cognitive impairment vs early dementia? Complicated by vascular disease. Will plan for outpatient cognitive testing. -Bilateral Babinski - no symptoms of myelopathy at this time. Will continue to monitor. Will consider MRI c-spine as outpatient. She should f/up in neurology in the next 4-6 weeks. Time spent reviewing radiology images/records since last seen, discussion with radiology team, discussion with patient/family, discussion with primary team: 52 minutes. Subjective Subjective Interval history since last seen: Granddaughter is at bedside today with her 2 sons. She is doing much better today. Notes symptoms have essentially resolved. Granddaughter notes that she has noticed Qing has had cognitive decline particularly in last 3 months. Notes that she is repeating questions. Concerned that she is living at home. Agrees Qing's balance is good. No concerns for falls. No concerns about her driving at this time. -CTH (06/21/22): L pontine hyperdensity unchanged compared to previous. I reviewed these images personally and this is my personal interpretation. -CTA head/neck (06/21/22): No evidence of a vascular malformation in the karmen/midbrain. ~5x7mm L MCA aneurysm at the M1/M2 bifurcation. Short areas of ~50+% stenosis L ICA just distal to the bifurcation. I reviewed these images personally and this is my personal interpretation. Objective Last Vital Signs Temp 98.4 F 06/21/22 11:04 Pulse 93 H 06/21/22 11:04 Resp 16 06/21/22 11:04 BP 151/93 H 06/21/22 11:04 Pulse Ox 95 06/21/22 11:04 Laboratory Results - last 24 hr 06/21/22 06/21/22 06:00 06:00 WBC 6.56 RBC 4.46 Hgb 12.9 Hct 39.7 MCV 89 MCH 28.9 MCHC 32.5 RDW 12.0 Plt Count MPV Sodium 138 Potassium 3.9 Chloride 101 Carbon Dioxide 29.2 Anion Gap 7.8 BUN 14 Creatinine 0.8 Est GFR (CKD-EPI 2020) 72.16 Glucose 107 H Calcium 9.2 Magnesium 2.1 Time Spent with Patient Time Spent with Patient: >50 minutes Time was spent: preparing to see the patient(eg.review tests), obtaining and/or reviewing separately otained hiistory, referring, communicating with other health resident care aide, indepentently interpreting results, counseling the patient and care coordination
--- NOTE | 2022-06-21 12:49 | PT.INTREAT ---
Date of service: 06/21/22 Time of Service: 10:30 PT Notes Visit Reasons: Right Sided Paresthesia Inpatient Physical Therapy Treatment Note [facility] Date: 06/21/2022 PRECAUTIONS: Fall, Activity as tolerated SUBJECTIVE: Qing is pleasant and agreeable to participating in PT. She states that she is feeling a little better. She states that her family is working on a plan for in-home caregivers. OBJECTIVE: PAIN: No c/o pain BED MOBILITY/TRANSFERS Sit-stand: S Stand-sit: S GAIT Assistive Device: FWW in a.m.; No AD in p.m. Weight bearing: Full Assist: S with FWW; CGA without AD Distance: 600' in a.m.; 300' in p.m. Deviation: Gait mechanics unremarkable, slow pacing with use of FWW; unsteady, path deviation, mild LOB - self-corrected TOILETING: Patient toileted with supervision for transfers ASSESSMENT: Patient tolerated session well without complaint. She was able to tolerate a progression in gait distance with FWW support and SBA. She demonstrates unsteady gait and increased fall risk without use of FWW. Recommend patient utilize FWW upon discharge to home. PLAN: Patient to discharge to home later today, per provider. Recommend follow up with PT upon discharge. TREATMENT CODE/TIME: Session 1: 15 minutes; 95394 (10:30) Session 2: 10 minutes; 96111 (11:45)
--- NOTE | 2022-06-21 12:50 | W.PM.DS.N ---
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 (4) Hypertension: Status: Chronic (5) Hemorrhagic stroke: Status: Ruled-out (6) Carotid stenosis, left: Status: Acute (7) Hypokalemia: Status: Resolved (8) Hypomagnesemia: Status: Resolved Discharge Plan Disposition Patient Disposition: Home Condition: Good Discharge Details Reason For Visit: Right Sided Paresthesia Admit Date/Time: 06/20/22 00:37 Admit Provider: Bradly Echavarria Attending Provider: Bradly Echavarria Primary Care Provider: Lele Cannon [facility] Hospital Course: Ms Bailey is an 86 year old female with PMHx of white coat hypertension, hyperlipidemia, GERD, anemia, who was observed on [facility] hospitalist service from 06/20/22 until 06/21/22 for acute right upper and lower extremity as well as perioral and tongue paresthesias and vertigenous sensation. Her preliminary read of the CT head did not show acute findings, so she was started on aspirin and maintained on her statin with permissive hypertension strategy. However, neurology and in-house radiology, having reviewed the images, felt that the patient may in fact have a possible vascular malformation and a focus of microhemorrhage in her brain stem. For this reason, aspirin and prophylactic heparin were discontinued and BP control was tightened with addition of amlodipine. MRI of the brain showed a linear area of hypointense signal in the left aspect of brain stem, consistent with a vascular malformation. There was also evidence of small vessel ischemic disease and age-related cerebral atrophy. There was a 4.3 mm dilation of at the junction of the M1 and M2 segments in the L MCA suggestive of a possible aneurysm. CTA head/neck was obtained (24 [address] the original CT), again showing a tiny focus of high attenuation of the left side of the karmen w/o contrast enhancement. Per my discussion with Dr Dc, this is consistent with a venous malformation, and bleed could not be 100% excluded if it had already sealed itself off. The patient is clinically significantly improved. At the time of discharge, she is, in fact, at baseline, but reports that symptoms do come back intermittently. She is deemed stable for discharge home today with a referral to [facility] neurosurgery, Dr Dc, as well as her PCP. She is being referred to home health PT. She is asked to keep a log of blood pressures and bring them to her PCP's visit. Time spent on care for patient as well as completion of her discharge summary on day of discharge was 45 minutes. Home Meds and New Rx's Prescriptions: New amlodipine 5 mg Tablet 5 mg PO DAILY Qty: 30 0RF Continued ascorbic acid (vitamin C) 1,000 mg tablet 1 g PO DAILY B Complex Plus Vitamin C [id number] mg capsule 1 cap PO DAILY Rx Instructions: give with food (meal/snack) albuterol sulfate 90 mcg/actuation HFA aerosol inhaler 2 puff IH Q6H PRN (Reason: shortness of breath or wheezing) Qty: 18 6RF omeprazole 20 mg capsule,delayed release(DR/EC) 20 mg PO DAILY Qty: 90 3RF atorvastatin 10 mg tablet 10 mg PO DAILY Qty: 90 3RF Discharge Instructions Instructions: Amlodipine (By mouth), Arteriovenous Malformation (DC), Heart Healthy Diet (DC), Carotid Artery Disease (DC), Hypertension (DC), Nonruptured Cerebral Aneurysm (DC) Additional Instructions: Return to the hospital with any neurologic deficits, if you have any fever, bleeding, chest pain, or shortness of breath. Follow up with [facility] neurosurgery, with [facility] Neurology (Dr Dc), and with your PCP. Avoid NSAIDS. Keep a log of your blood pressures and bring them to your next PCP appointment. Stand Alone Forms: Nursing Discharge Form Referrals: NEUROSURGERY,[facility] [OTHER] - (Referral was sent, They will be reaching out to you with an appt.) Lele Cannon DO [Primary Care Provider] - 06/30/22 3:30 pm Priya Dc MD [ [facility] STAFF PHYSICIAN] - (Talked to neurology, they will call you with an appointment) Activity:: Activity as Tolerated Equipment/Supplies:: Walker Diet:: heart healthy Discharge Orders Discharge Orders: Discharge Order (Routine); Ordered 06/21/22 Ordered By: Jenna Daniel DS: Summary Time Spent with Patient providing and/or coordinating discharge services: Greater than 30 minutes Status at Discharge Functional status at discharge: uses cane/walker Overall status at discharge: patient is progressing back to baseline Mental Status: mental status grossly normal Speech and Movement: speech and movement normal Mood: congruent mood Affect: normal affect Exam Narrative Exam Narrative: General: Pleasant elderly female, [place], A&Ox3, NAD HEENT: EOMI, MMM Heart: RRR, no m/r/g Lungs: CTAB Abdomen: soft, nontender, nondistended Extremities: 5/5 strength throughout Psych Mental Status: mental status grossly normal Speech and Movement: speech and movement normal Mood: congruent mood Affect: normal affect DS: Data Vitals/I&O Vitals and I&O: Vital Signs Temperature 36.9 C 06/21/22 11:04 Temperature Source Tympanic 06/21/22 11:04 Pulse 93 H 06/21/22 11:04 Pulse Rhythm Regular 06/21/22 09:44 Respiratory Rate 16 06/21/22 11:04 Respiratory Effort Normal, Non-Labored 06/21/22 09:44 Respiratory Depth Normal 06/21/22 09:44 Respiratory Pattern Normal 06/21/22 09:44 Blood Pressure 151/93 H 06/21/22 11:04 Blood Pressure Position Sitting 06/19/22 22:01 Pulse Oximetry 95 06/21/22 11:04 Oxygen Delivery Method Room Air 06/21/22 11:04 Oxygen Flow Rate 0 06/21/22 11:04 Pain Level 0 06/21/22 02:51 Comment RN informed of BP 06/21/22 07:27 Intake & Output 06/20/22 06/21/22 06/21/22 23:59 11:59 23:59 Intake Total 480 / 660 360 / 360 Output Total 1800 / 3400 975 / 975 Balance -1320 / -2740 -615 / -615 Intake: Oral 480 / 660 360 / 360 Output: Urine 1800 / 3400 975 / 975 Other: Urine Color Yellow Yellow Urine Appearance Clear Clear Urine Odor Normal Normal Comment RN assisted pT to commode per RN Voiding Methods Toilet Toilet Data Completed and Pending Labs on day of discharge: Labs from last 24 hours 06/21/22 06/21/22 06:00 06:00 WBC 6.56 RBC 4.46 Hgb 12.9 Hct 39.7 MCV 89 MCH 28.9 MCHC 32.5 RDW 12.0 Plt Count MPV Sodium 138 Potassium 3.9 Chloride 101 Carbon Dioxide 29.2 Anion Gap 7.8 BUN 14 Creatinine 0.8 Est GFR (CKD-EPI 2020) 72.16 Glucose 107 H Calcium 9.2 Magnesium 2.1 Additional Comments Additional comments: CT head w/o contrast 06/20/22: 1. No acute intracranial process.? 2. Hyperdense focus near the junction of the karmen in the medulla on the left.? This may represent a focus of hemorrhage or possible vascular malformation.? An MRI should be considered for further evaluation. CXR: No acute pulmonary findings. Brain MRI 06/20/22: 1. No evidence of an acute infarct. 2. Linear area of hypointense signal on the gradient images in the left aspect of the brainstem.? This corresponds to the CT finding.? 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 3. Small vessel ischemic disease and age-related cerebral atrophy. 4. Question of a 4.3 mm focal dilatation at the junction of the M1 and M2 segments of the left middle cerebral artery.? This may represent an aneurysm.? MR or CT angiography may be obtained for further evaluation.? Echo 06/20/22: Normal left ventricular wall thickness and chamber size.? Ejection fraction is 60%.? Wall motion is normal Normal right ventricular size and systolic function Both atria are normal in size There is no structural or hemodynamically significant valvular disease Estimated right ventricular systolic pressure is 20 mmHg Borderline dilated ascending aorta CTA head/neck; 1. Normal CTA examination of the [place]. 2. Head CT: Stable tiny focus of high attenuation in the left side of the karmen which does not show contrast enhancement. 3. CTA neck: Mild plaque at the common carotid bulbs and proximal internal carotid arteries without significant stenosis, less than 50 percent bilaterally..? PFSH All Active Problems (Updated 06/21/22 @ 13:15 by Jenna Daniel MD) Aneurysm of middle cerebral artery (Acute) Carotid stenosis, left (Acute) Vascular malformation (Acute) Paresthesia of right arm and leg (Acute) Hypertension (Chronic) Dizziness (Acute) Right arm numbness (Acute) Transient ischemic attack (TIA) (Acute) Chronic pruritic rash in adult (Acute) [facility] Dermatology White coat syndrome with high blood pressure but without hypertension (Acute) History of basal cell carcinoma (BCC) (Acute) Epistaxis (Acute) 5/28/21 Tetracaine and Silver Nitrate application for control of bleeding by ENT. Xerosis cutis (Acute) Eczema craquele (Acute) 05/20/20 Derm [facility] [place] 07/15/20 Dr Tenorio [facility] Cough (Acute) Burning with urination (Acute) Pain with urination (Acute) Skin tag (Acute) Basal cell carcinoma of neck (Acute) 03/11/19 Dr Shah Dysfunction of both eustachian tubes (Acute) Neoplasm of unspecified behavior of bone, soft tissue, and skin (Acute) Dr Pablo Krueger lateral neck-shave excision 02/18/19 Polyp of colon (Acute 03/07/17) Actinic keratoses (Acute) Non-small cell cancer of left lung (Chronic) ([facility] report 05/28/18) Stage 1a adenocarcinoma of the left upper lobe. Possible left upper lobe lung local recurrent adenocarcinoma original diagnosis in November 2014 as stage Ia disease resected in [place]. (Meghan Schwartz MD) Chronic GERD (Chronic) Hyperlipidemia (Chronic) Pulmonary nodule (Chronic 03/07/17) 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, s/p segmentectomy Medical History History of basal cell carcinoma Dr Pablo Krueger latter-day Surgical History (L)Lingulectomy(Segmentectomy) (11/11/14) Appendectomy (~1969) Cholecystectomy (~2007) Family History Mother Stroke Father Stroke Sister Diabetes Social History Smoking/Tobacco Use Status: Former Tobacco Use Smoking risk assessment performed?: Yes Alcohol Intake: never Drug use: Never Substance use type: does not use Adopted: No Caregiver/Support person: No Housing: house Number of Children: 0 Communication Needs: Hard of Hearing Education Level: high school current occupation: retired Pets and animals: No Do you think of yourself as: straight/heterosexual Current gender identity: female What is your relationship status?: How often do you talk on the phone with friends or family?: three or more times per week How often do you get together with friends or relatives?: once per week Do you belong to any clubs or organized social groups?: yes Panel score (0-1 are the most socially isolated patients): 2 What type of physical activity do you participate in: regular exercise and other Details: dances (has not done so during the past 12mo due to COVID) 08/21/20 Frequency: 3-4 times per week Seatbelt use: always Drive intox or ride w/intox 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
--- NOTE | 2022-06-21 13:01 | PDOC.HHF2F ---
Home Health Referral Home Health Orders Clinical synopsis of why skilled professionals are needed: Ms Bailey is an 86 year old female with PMHx of white coat hypertension, hyperlipidemia, GERD, anemia, who was observed on [facility] hospitalist service from 06/20/22 until 06/21/22 for acute right upper and lower extremity as well as perioral and tongue paresthesias and vertigenous sensation. Her preliminary read of the CT head did not show acute findings, so she was started on aspirin and maintained on her statin with permissive hypertension strategy. However, neurology and in-house radiology, having reviewed the images, felt that the patient may in fact have a possible vascular malformation and a focus of microhemorrhage in her brain stem. For this reason, aspirin and prophylactic heparin were discontinued and BP control was tightened with addition of amlodipine. MRI of the brain showed a linear area of hypointense signal in the left aspect of brain stem, consistent with a vascular malformation. There was also evidence of small vessel ischemic disease and age-related cerebral atrophy. There was a 4.3 mm dilation of at the junction of the M1 and M2 segments in the L MCA suggestive of a possible aneurysm. CTA head/neck was obtained (24 [address] the [address] CT), again showing a tiny focus of high attenuation of the left side of the karmen w/o contrast enhancement. Per my discussion with Dr Dc, this is consistent with a venous malformation, and bleed could not be 100% excluded if it had already sealed itself off. The patient is clinically significantly improved. At the time of discharge, she is, in fact, at baseline, but reports that symptoms do come back intermittently. She is deemed stable for discharge home today with a referral to [facility] [place] [place] neurosurgery, Dr Dc, as well as her PCP. She is being referred to home health PT per our physical therapy's recomendation. She is asked to keep a log of blood pressures and bring them to her PCP's visit. Medical diagnosis necessitation home health referral: Generalized weakness/deconditioning, would benefit from home health physical therapy per inpatient PT's recommendation. Physical Therapist: Check all that apply Increase strength & endurance for safe mobility at home: Ordered To design/establish home maintenance program: Ordered Home safety evaluation and teaching/gait training including stair management (if applicable): Ordered Home Bound Status Requires the aid of supportive device (check all that apply): Walker Assistance of another person (Describe assistance and medical necessity): The patient has mild cognitive deficits and does need assistance of family members to get to outpatient appointments Describe why leaving home would require a considerable and taxing effort: Requires frequent rest periods Encounter Date and Reason: I certify that a FTF encounter for this patient was performed on June 21, 2022 and that such encounter was related to the primary reason the patient requires home health services. The encounter was conducted in the following manner: By me as the certifying physician, JEWELRY COATER, PA or By an inpatient physician, JEWELRY COATER or PA during an inpatient stay who communicated findings to me, Certification And Authentication I certify that I composed the above information based on my clinical judgment relating to this patient's medical condition and, if applicable, clinical findings communicated to me by the NPP or inpatient physician who performed the FTF encounter. Name of Provider that will be monitoring home health services: Lele Cannon
[2022-06-21 14:32] VITALS: PULSE 99
--- NOTE | 2022-06-21 14:55 | CHAPLAIN ---
Qing said she is waiting to be discharged. She had three visitors with her who were planning to take her home. She lives in [facility]
--- NOTE | 2022-06-21 16:47 | PDOC.CMDIS ---
- If Service Date Differs Date of service: 06/21/22 Time of Service: 16:47 LACE Index Scoring Tool - Questions: Length of Stay (in days): 1 Acuity (Admit via E.D.?): Yes Comorbidities: Cerebrovascular Disease, Any Tumor E.D. Visits: 1 - Answers: Total Score: 8 Risk of Readmission: Low Risk Care Management Discharge Reason for Hospitalization: righty sided paresthesia Discharge Plan: Qing will be discharged home with new services for PT. She will follow up with her PCP and plan of care and transport with family. Patient/Family Education Needs: Review of discharge instructions, limitations, activity, follow up plan, and discuss Ask Me Three. Services Needed at Discharge: Physical Therapy
--- NOTE | 2022-06-22 07:15 | OTDS_ITS ---
Occupational Therapy Notes Occupational Therapy Inpatient Discharge Summary Date: 06/22/22 Dates of Service: 06/21/22 Referring Doctor:Jenna Daniel MD OT Orders: Non Urgent Precautions: Fall, standard, DNR/DNI PATIENT PROFILE/ADMITTING DIAGNOSIS: Pt is a 86 year old female who was was admitted for the following dx of hypomagnesemia, hyperlipidemia, GERD, and paresthesias of right arm and leg. 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 (Acute) [facility] [place] DermatologyWhite coat syndrome with high blood pressure but without hypertension (Acute) History of basal cell carcinoma (BCC) (Acute) Epistaxis (Acute) 09/04/20 Tetracaine and Silver Nitrate application for control of bleeding by ENT.Xerosis cutis (Acute) Eczema craquele (Acute) 05/20/20 Derm [facility] [place] 07/15/20 Dr Ten[place] [facility] [place] [place]) Burning with urination (Acute) Pain with urination (Acute) Skin tag (Acute) Basal cell carcinoma of neck (Acute) 03/11/19 Dr Munguiaysfunction of both eustachian tubes (Acute) Neoplasm of unspecified behavior of bone, soft tissue, and skin (Acute) Dr Pablo Krueger lateral neck-shave excision 02/18/19Polyp of colon (Acute 03/07/17) Actinic keratoses (Acute) Non-small cell cancer of left lung (Chronic) ([facility] [place] report 05/28/18) Stage 1a adenocarcinoma of the left upper lobe.? Possible left upper lobe lung local recurrent adenocarcinoma original diagnosis in November 2014 as stage Ia disease resected in [place]. (Meghan Schwartz MD)Chronic GERD (Chronic) Hyperlipidemia (Chronic) Pulmonary nodule (Chronic 03/07/17) 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, s/p segmentectomy Medical History? History of basal cell carcinoma Dr Pablo Krueger mandaeism Surgical History? (L)Lingulectomy(Segmentectomy) (11/11/14) Appendectomy (~1969) Cholecystectomy (~2007) Social History/Home Situation: Pt states that she is (I) At her baseline level of function. She notes that she is able to perform her her ADLs without any (A). She has supports within her family and community. SUBJECTIVE:?NT OBJECTIVE:? *Based on initial evaluation performed on 06/21/22 prior to D/C. ROM: RUE AROM WFL L UE AROM WFL STRENGTH: RUE 4/5 throughout LUE 4/5 throughout FUNCTIONAL MOBILITY/ADLS:? Sit-Stand SBA Stand-sit SBA BALANCE: Static sitting Normal Dynamic Sitting Normal Static Standing Normal Dynamic Standing Good ASSESSMENT:?? Patient is a 86-year-old female referred to occupational therapy s [facility] with diagnosis of hypomagnesemia, hyperlipidemia, GERD, and paresthesias of right arm and leg. Patient was seen for OT consult and then later discharged home and medically cleared per MD. GOALS- not met seen for consult only. 1.? Transfers (I) 2.? Dressing (I) in the seated position 3.? Bathing (I) in shower 4.? Toileting (I) on toilet 5.? Eating (I) PLAN OF CARE/TREATMENT PLAN: Discharged home and medically cleared on 06/21/22 with HH services. DISCHARGE RECOMMENDATIONS Home with HH services when medically cleared per MD. TREATMENT TIME/MINUTES/CODES N/A Sabiha Altamirano OTR/[facility]
--- NOTE | 2022-06-22 18:25 | PT.INDS ---
Date of service: 06/21/22 PT Notes Visit Reasons: Right Sided Paresthesia Physical Therapy Inpatient Discharge Summary Date: 06/21/2022 Dates of Service: 06/20/2022 through 06/21/2022 This is a clinical summary of care provided for the duration of dates listed above. No charge was made in the completion of this documentation. Referring Doctor: Bradly Echavarria MD PT Orders: PT CONSULT: Eval/Treat Precautions: Fall. Standard. Activity as tolerated. Patient Profile/Admitting Diagnosis:? Qing is an 86-year-old female who presented to the ED on 06/19/2022 with chief complaint of right arm numbness and dizziness.? Patient is admitted to [facility] for further monitoring and testing for CVA versus TIA.? Patient with diagnosis of dizziness which Dr. Echavarria believed to be vertiginous in nature, hypomagnesemia, hyperlipidemia, GERD, and paresthesias of right arm and leg. PMHX: All Active Problems?(Updated 06/20/22 @ 04:26 by Bradly Echavarria MD) Paresthesia of right arm and leg (Acute) Hypertension (Chronic) Dizziness (Acute) Hypomagnesemia (Acute) Right arm numbness (Acute) Transient ischemic attack (TIA) (Acute) Chronic pruritic rash in adult (Acute) [facility] Dermatology White coat syndrome with high blood pressure but without hypertension (Acute) History of basal cell carcinoma (BCC) (Acute) Epistaxis (Acute) 09/04/20 Tetracaine and Silver Nitrate application for control of bleeding by ENT.Xerosis cutis (Acute) Eczema craquele (Acute) 05/20/20 [facility] 07/15/20 Dr Tenorio [facility]) Burning with urination (Acute) Pain with urination (Acute) Skin tag (Acute) Basal cell carcinoma of neck (Acute) 03/11/19 Dr Shah Dysfunction of both eustachian tubes (Acute) Neoplasm of unspecified behavior of bone, soft tissue, and skin (Acute) Dr Shah L lateral neck-shave excision 02/18/19Polyp of colon (Acute 03/07/17) Actinic keratoses (Acute) Non-small cell cancer of left lung (Chronic) ([facility] report 05/28/18) Stage 1a adenocarcinoma of the left upper lobe.? Possible left upper lobe lung local recurrent adenocarcinoma original diagnosis in 2014 as stage Ia disease resected in [place]. (Meghan Schwartz MD)Chronic GERD (Chronic) Hyperlipidemia (Chronic) Pulmonary nodule (Chronic 03/07/17) 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, s/p segmentectomy Medical History? History of basal cell carcinoma Dr Pablo ash Surgical History? (L)Lingulectomy(Segmentectomy) (11/11/14) Appendectomy (~1969) Cholecystectomy (~2007) Social History/Home Situation: Patient lives alone in a private home with 2 steps to enter with rails on both sides.? Family lives close by and are involved with her on a regular basis.? Independent with all aspects of ADLs prior to admission.? Still drives.? Denies falls in the past year. Equipment Owned/DME: None but sons has a FWW that patient may be able to use if needed Subjective: NT. See most recent THERMAL ENGINEER notes. Objective: General Observation: NT. See most recent THERMAL ENGINEER notes. Mental Status: NT. See most recent THERMAL ENGINEER notes. Pain: NT. See most recent THERMAL ENGINEER notes. ROM: Right Upper Extremity: ? Shoulder Flexion WFL. Shoulder abduction WFL. Elbow flexion WFL. Wrist flexion WFL. Functional opening and closing of hand WFL. Left Upper Extremity:? Shoulder Flexion WFL. Shoulder abduction WFL. Elbow flexion WFL. Wrist flexion WFL. Functional opening and closing of hand WFL. Right Lower Extremity: Hip flexion WFL. Hip abduction WFL. Knee flexion WFL. Ankle dorsiflexion WFL. Ankle plantarflexion WFL. Left Lower Extremity: Hip flexion WFL. Hip abduction WFL. Knee flexion WFL. Ankle dorsiflexion WFL. Ankle plantarflexion WFL. Strength: Right Upper Extremity: Shoulder flexors 4/5. Shoulder abductors 4/5. Elbow flexors 5/5. Elbow extensors 4/5. Web Graphic Designer strong. Left Upper Extremity: Shoulder flexors 4/5. Shoulder abductors 4/5. Elbow flexors 5/5. Elbow extensors 4/5. Web Graphic Designer strong. Right Lower Extremity: Hip flexors 4/5. Hip abductors 4/5. Knee flexors 5/5. Knee extensors 4/5. Ankle dorsiflexors 4-/5. Ankle plantarflexors 4/5. Left Lower Extremity: Hip flexors 4/5. Hip abductors 4/5. Knee flexors 5/5. Knee extensors 4/5. Ankle dorsiflexors 4-/5. Ankle plantarflexors 4/5. BED MOBILITY/TRANSFERS? Sit-stand: S? Stand-sit: S ? GAIT? Assistive Device: FWW in a.m.; No AD in p.m. ? Weight bearing: Full Assist: S with FWW; CGA without AD? Distance:? 600' in a.m.; 300' in p.m. ? Deviation: Gait mechanics unremarkable, slow pacing with use of FWW; unsteady, path deviation, mild LOB - self-corrected Balance: Static Sitting: Normla Dynamic Sittingal Normal Static Standing: Fair Dynamic Standing: Fair NEURO: Romberg test: Positive Babinski Reflex: Negative UE/LE strength: Symmetric 4-stage balance test: Unable to mainatain all 4 positions safely Assessment: UE/LE strength symmetric.? Mild pronator drift seen on the L UE.? Has good family support.? Needs use of front wheeled walker to maximize independence and reduce fall risk at home. Patient presents with clinical signs and symptoms consistent with current/admitting diagnoses that have resulted to mobility limitations, gait instability, generalized weakness, and overall ADL decline as demonstrated by the following impairment level findings: 1.? Impaired sitting/standing balance 2.? Impaired activity tolerance 3.? Paresthesias in R UE/LE Impairments are contributing to the following functional limitations: 1.? Decline in bed mobility skills 2.? Decline in transfer skills 3.? Difficulty with ambulation without assistive device and physical assistance 4.? Increased completion time for mobility ADL performance 5.? Increased risk for falls 6.? Difficulty with managing steps alone safely Goals: Goals X1 week 1. Supine-Sit independent NOT MET 2. Sit-Supine independent NOT MET 3. Sit-Stand independent NOT MET 4. Stand-Sit independent with FWW NOT MET 5. Bed-Chair independent with FWW NOT MET 6. Chair-Bed independent with FWW NOT MET 7. Independent gait on level surface with use of FWW for at least 300 feet without report of pain nor dyspnea NOT MET 8. Independent stair negotiation while holding onto B rails for at least 3 steps without report of pain nor dyspnea NOT MET 9. Independent with home exercise program NOT MET 10. Good static and dynamic standing balance/tolerance NOT MET DISCHARGE RECOMMENDATIONS: [] ? Home with no services [] [X] ? Home with services.? Home when medically cleared by hospitalist.? Patient will benefit from home health PT services in order to progress mobility level using least restrictive assistive ambulatory device, assess home safety, identify additional equipment needs, and establish a functional maintenance program that will increase ability of patient to remain at home. [] ? Home with outpatient PT [] [] ? SNF for continued rehabilitation [] [] ? [facility] [] [] ? SNF versus LTC based on ability to participate and progress [] TREATMENT CODE/TIME: NC Thank you for the opportunity to participate in the care of this patient. Nay Martínez PT, DPT, CLT [facility] [place], [place]
== END 2022-06-21 14:54 | disposition home or self-care (01) ==
LOC: ER 06-20 00:31 → MS 06-20 00:54
PROVIDERS: Internal Medicine; Admitting Provider Family Medicine; Emergency Provider Emergency Medicine; PCP Family Medicine; Visit Provider Family Medicine
DX: R29.818 Other symptoms and signs involving the nervous system (principal); R42 Dizziness and giddiness; Q28.3 Other malformations of cerebral vessels; E83.42 Hypomagnesemia; E78.5 Hyperlipidemia, unspecified; I10 Essential (primary) hypertension; K21.9 Gastro-esophageal reflux disease without esophagitis; Z20.822 Contact with and (suspected) exposure to COVID-19; R20.2 Paresthesia of skin; Z90.2 Acquired absence of lung [part of]; Z85.118 Personal history of other malignant neoplasm of bronchus and lung; Z87.891 Personal history of nicotine dependence; R41.89 Other symptoms and signs involving cognitive functions and awareness; I65.22 Occlusion and stenosis of left carotid artery; E87.6 Hypokalemia
CPT/HCPCS: 36415; 70496; 70498; 80048; 80053; 80061; 85027; 87635; 93005; 93306; 96365; 96366; 96372; 96375; 97162; 97165; 97530; 99223; 99233; 70450; 70551; 71045; 82607; 83036; 83735; 84443; 84484; 85025; 93010; 99239; G0378; J1644; J2060

== ENCOUNTER 2022-07-21 17:41 | Outpatient (REF) | payer MEDICARE, OTHER, SELFPAY ==
[2022-07-21 15:44] LABS: Source Nasal/Nares
[2022-07-21 17:21] LABS: COVID-19 PCR Negative (Negative)
== END 2022-07-21 17:42 | disposition home or self-care (01) ==
LOC: LBN 17:41
PROVIDERS: PCP Family Medicine; Visit Provider Family Medicine
DX: Z20.822 Contact with and (suspected) exposure to COVID-19 (principal); R06.09 Other forms of dyspnea
CPT/HCPCS: 87635; U0003

== ENCOUNTER 2022-08-22 00:43 | Outpatient (CLI) | payer MEDICARE, OTHER, SELFPAY ==
--- NOTE | 2022-08-22 08:15 | DI.CT_ITS ---
Exam(s) CT ABDOMEN PELVIS W EXAM: CT ABDOMEN PELVIS W CLINICAL HISTORY: Weight loss,nausea, previous lung CA,R63.4. TECHNIQUE: Imaging Protocol: Axial computed tomography images with coronal and sagittal reformatted images were created and reviewed CONTRAST MATERIAL: Intravenous: Omnipaque 350 Contrast volume:74 ml Oral: yes / COMPARISON: CT CT CHEST PE CTA from 01/18/2019 CR XR CHEST 2V PA LATERAL from 08/06/2019 FINDINGS: ABDOMEN: Exam mildly limited by motion on the upper images. Lung Bases: Normal where visualized. Liver: Normal density. No measurable mass. Gallbladder and biliary tract: Stable mild biliary dilatation. Status post cholecystectomy. Pancreas: Normal density, no abnormal calcifications or inflammatory process. Spleen: Normal. Kidneys: Normal size, contour and axis. No radiodense stones or obstructive uropathy. No suspicious m asses seen. Adrenal glands: No masses seen. Abdominal Aorta: Throw sclerotic changes p.o.. Mild dilatation of the proximal aorta with mural thro mbus. Mild dilatation of distal abdominal aorta with mural thrombus, 3 cm.. No dissection. Narrowi ng of the proximal iliac arteries. Soft tissues: Unremarkable. PELVIS: Bladder: No gross wall thickening. No calculi.No focal mass. Bowel: Diverticulosis. No evidence of diverticulitis. No obstruction. No bowel wall thickening. N o gross evidence of a mass. Peritoneal cavity: No ascites, collection or mesenteric inflammatory response. Bones: Unremarkable for age. Reproductive organs: Within normal limits. Lymph nodes: Unremarkable. Impression: Diverticulosis. No acute abnormality identified. RADIATION DOSE DELIVERED: 549.5mGy.cm Total DLP DATA REPOSITORY: All CT scans at this facility are submitted to the National Radiology Data Registry (NRDR) Dose Index Registry (DIR) with the [employer] (ACR). RADIATION OPTIMIZATION: All CT scans at this facility use at least one of these dose optimization te chniques: automated exposure control; mA and/or kV adjustment per patient size (includes targeted exa ms where dose is matched to clinical indication); or iterative reconstruction.
[2022-08-22] MEDS: Barium Sulfate 2% W/V-Berry Smoothie 450 ML BTL 900 ML PO (12:24)
[2022-08-22] MEDS: Omnipaque 350 MG/ML 100 ML BTL IJ (14:08)
[2022-08-22] MEDS: Normal Saline - Diluent 50 ML VIAL IJ (14:11)
== END 2022-08-22 01:03 ==
LOC: DI 00:43
PROVIDERS: PCP Family Medicine; Visit Provider Family Medicine
DX: K57.90 Diverticulosis of intestine, part unspecified, without perforation or abscess without bleeding
CPT/HCPCS: 74177; J3490

== ENCOUNTER → 2022-08-24 09:25 | Outpatient (BNVA) | payer MEDICARE, OTHER, SELFPAY | PROVIDERS: PCP Family Medicine; Referring Provider Family Medicine; Visit Provider Nurse Practitioner Adult Health | DX: G31.84 Mild cognitive impairment of uncertain or unknown etiology (principal) | CPT/HCPCS: 99212 ==

== ENCOUNTER → 2022-09-12 13:16 | Outpatient (BNVA) | payer MEDICARE, OTHER, SELFPAY | PROVIDERS: PCP Family Medicine; Referring Provider Family Medicine; Visit Provider Psychiatry & Neurology Neurology | DX: R20.2 Paresthesia of skin (principal); R42 Dizziness and giddiness; Z79.82 Long term (current) use of aspirin; Q27.9 Congenital malformation of peripheral vascular system, unspecified; I65.22 Occlusion and stenosis of left carotid artery; I67.1 Cerebral aneurysm, nonruptured; R29.2 Abnormal reflex | CPT/HCPCS: 99214 ==

== ENCOUNTER → 2022-11-08 12:38 | Outpatient (BNVA) | payer MEDICARE, OTHER, SELFPAY | PROVIDERS: PCP Family Medicine; Visit Provider Psychiatry & Neurology Neurology | DX: R20.2 Paresthesia of skin (principal); Q27.9 Congenital malformation of peripheral vascular system, unspecified; I65.22 Occlusion and stenosis of left carotid artery; I67.1 Cerebral aneurysm, nonruptured; R29.2 Abnormal reflex; I10 Essential (primary) hypertension | CPT/HCPCS: 99214 ==

== ENCOUNTER 2022-11-23 09:48 | Emergency (ER) | payer MEDICARE, OTHER, SELFPAY ==
--- NOTE | 2022-11-23 09:45 | DI.CT_ITS ---
Exam(s) CT BRAIN NECK CTA EXAM: CT BRAIN NECK CTA CLINICAL HISTORY: Hx of Aneurysm left side, Dizziness, off balance. TECHNIQUE: Imaging Protocol: Axial CT angiography was performed with multi-slice acquisition and mu lti-planar and 3D reconstructions. CONTRAST MATERIAL: Intravenous: Omnipaque 350 Contrast volume:85 mL COMPARISON: CT CT BRAIN NECK CTA from 06/21/2022 FINDINGS: CT Head W/O and W contrast: Ventricles and Extra axial spaces: Normal in size and morphology for the patient's age. Hemorrhage: None. Knee hyperdense focus in the left side of the karmen is no longer seen. Findings coul d represent have represented a small focus of petechial hemorrhage. Prior MRI suggests this may be se condary to small venous malformation. This is not visible on the current exam. There is no abnormal c ontrast enhancement in this area. Cerebral parenchyma: Normal. Midline shift: None. Brainstem/Cerebellum: Normal. Calvarium: Normal. Visualized Paranasal sinuses/Mastoids: Clear. Soft Tissues: Unremarkable. Enhancement: Normal. CTA Brain W: Internal Carotid Arteries: Petrous: Normal. Cavernous: Normal. Cerebral: Normal. Middle Cerebral Arteries: Right: No aneurysm, occlusion or significant stenosis. Left: Stable appearance of mild dilatation of the junction of the proximal M2 segment versus tortuosi ty to 4 millimeters. No occlusion or significant stenosis. Anterior Cerebral Arteries: Right: No aneurysm, occlusion or significant stenosis. Left: No aneurysm, occlusion or significant stenosis. Posterior cerebral Arteries: Right: No aneurysm, occlusion or significant stenosis. Left: No aneurysm, occlusion or significant stenosis. Vertebral Arteries: Right: No aneurysm, occlusion or significant stenosis. Left: No aneurysm, occlusion or significant stenosis. Basilar Artery: No aneurysm, occlusion or significant stenosis. CTA Neck W: Common Carotid: Right: No dissection, occlusion or significant stenosis. Left: No dissection, occlusion or significant stenosis. External Carotid: Right: No dissection, occlusion or significant stenosis. Left: No dissection, occlusion or significant stenosis. Internal Carotid: Right: Mild focal plaque proximally. No dissection, occlusion. Mild stenosis, less than 50 percent. Left: Calcific plaque proximally. Mild stenosis less than 50 percent. No dissection or occlusion . Vertebral Artery: Right: No dissection, occlusion or significant stenosis. Left: No dissection, occlusion or significant stenosis. Lung Apices: Scarring. Bones: No acute abnormality. Degenerative changes peer Soft Tissues: Normal. IMPRESSION: 1. Stable mild focal dilatation of the proximal and left M2 segment , [address] Head. Previously noted punctate high-density focus in the karmen no longer present. 3. Calcific plaque at the proximal internal carotid arteries causing mild stenosis of less than 50 pe rcent.. Findings called to Fallon Nguyen of the emergency department. RADIATION DOSE DELIVERED: 1,625.36mGy.cm Total DLP DATA REPOSITORY: All CT scans at this facility are submitted to the National Radiology Data Registry (NRDR) Dose Index Registry (DIR) with the [employer] (ACR). RADIATION OPTIMIZATION: All CT scans at this facility use at least one of these dose optimization te chniques: automated exposure control; mA and/or kV adjustment per patient size (includes targeted exa ms where dose is matched to clinical indication); or iterative reconstruction.
--- NOTE | 2022-11-23 09:45 | RT.EKG_ITS ---
APPROVED REPORT Exam: Resting ECG Reason for Exam: Dizziness, Patient Location: E HR:92 bpm ECG Measurements Heart Rate 92 AXIS GA 140 P 59 QRSd 77 QRS 80 QT 349 T 44 QTc 431 Conclusion Sinus rhythm...normal P axis, V-rate 60- [address] depression, lateral leads...ST <-0.07mV, I aVL V5 V6 Narrow complex normal sinus rhythm at a rate of 92. Normal axis. Intervals within normal limits. M inor ST segment depressions V4 5 and leads I. Similar to prior. Minor ST segment elevation in V2 si milar to prior. Prior dated earlier this year. No T wave inversions. No acute injury pattern.
[2022-11-23 09:52] VITALS: BP 181/73; PULSE 97; RESP 20; TEMP 37.1; O2SAT 97
--- NOTE | 2022-11-23 10:02 | ED.GENADUL_ITS ---
Discharge Plan Disposition Patient Disposition: Home Condition: Stable Discharge Details Clinical Impression: Acute UTI, Dizziness Primary Care Provider: Lele Cannon ED Provider: Fallon Nguyen Home Meds and New Rx's Prescriptions: New cephalexin 500 mg tablet 500 mg PO BID 7 Days Qty: 14 0RF Continued ascorbic acid (vitamin C) 1,000 mg tablet 1 g PO DAILY albuterol sulfate 90 mcg/actuation HFA aerosol inhaler 2 puff IH Q6H PRN (Reason: shortness of breath or wheezing) Qty: 18 6RF losartan 25 mg tablet 25 mg PO DAILY Qty: 60 0RF B Complex Plus Vitamin C [id number] mg capsule 1 cap PO DAILY Rx Instructions: give with food (meal/snack) omeprazole 20 mg capsule,delayed release(DR/EC) 20 mg PO DAILY Qty: 90 3RF atorvastatin 10 mg tablet 10 mg PO DAILY Qty: 90 3RF ondansetron HCl 4 mg tablet 4 mg PO Q8H PRN (Reason: nausea and vomiting) Qty: 30 0RF Discharge Instructions Instructions: Urinary Tract Infection in Women (ED), Dizziness (ED) Additional Instructions: No evidence of any acute change noted on the CT today. You do have a possible early mild urinary tract infection this can be causing your symptoms as well. Please continue to take your previously prescribed medications as directed. You may feel a little sleepy after the meclizine tablet that we gave you that is for dizziness. You were given the first dose of the antibiotic here in the department. You were also given your blood pressure medication. A prescription was sent to the pharmacy on file for you. Take the antibiotic with yogurt or probiotic. Follow up with primary care provider in 3-5 days. Return to ED sooner if any worsening or concerns. Increase oral fluids. Referrals: Lele Cannon DO [Primary Care Provider] - 5 days Discharge Data Discharge Date/Time-TO BE ENTERED AT DEPARTURE: 11/23/22 12:49 Medical Decision Making 87-year-old female with a past medical history of a 4 mm left MCA aneurysm which was discovered in June of this year. She is being followed by neurology and [facility] neurology presents to the ER with a chief complaint of dizziness, feeling foggy and feeling off balance. She is alert and oriented x4 upon arrival has no focal motor neurodeficits, he denies any chest pain shortness of breath or problems urinating. No pronator drift no leg drop. Of note she did not take her blood pressure medication this morning or her Atorvastatin. she is normally on losartan 25 mg. Other past medical history includes GERD, TIA, hypertension, carotid stenosis on the left, hypomagnesemia basal cell carcinoma. Surgical history includes appendectomy cholecystectomy and the lingulectomy segmentectomy. EKG was reviewed by Dr. Rojo ER attending, please see his official report. There is no old EKG available for review. There is some ST depression in V4 5 and leads I which is similar to the prior. CBC shows no leukocytosis, is within normal limits, PT PTT within normal limits, CMP largely within normal limits other than glucose 140, magnesium 1.4 and bilirubin 1.1 initial troponin less than 50 within normal limits. Urinalysis is pending at this time. Will give Magnesium 1 gm IVPB. HINTS exam negative No nystagmis noted. Denies blurry vision or diplopia. Will give PO Losarten and Meclizine 12.5mg Spoke with Dr. Price regarding CT result nothing acute. Please see report. XR pelvis, Femur, and CXR WNL. Second troponin canceled due to patient having no chest pain. Prescription given for cephalexin for early UTI. Patient was ambulatory with minimal assistance with a walker prior to discharge. They did decline our walker to go home with daughter states that she will buy her own walker at the [facility] for the patient. This text was generated using [employer] dictation system, please disregard any o ddities of phrase or misspellings. Medical Records Medical records reviewed: Yes I reviewed the patient's medical records. Imaging Data Radiologic Study: Imaging: CT Scan Radiologist's impression: IMPRESSION: 1. Stable mild focal dilatation of the proximal and left M2 segment , [address] Head. Previously noted punctate high-density focus in the karmen no longer present. 3. Calcific plaque at the proximal internal carotid arteries causing mild stenosis of less than 50 percent.. Findings called to Fallon Nguyen of the emergency department. Lab Data Lab results reviewed: Yes I reviewed the patient's lab results. Labs: 11/23/22 10:42 Urine - Reflex from Ua Urine Culture - Pending Laboratory Tests Range/Units 11/23/22 11/23/22 11/23/22 10:06 10:06 10:06 WBC (4.4-10.8) 10^3/uL 5.72 RBC (3.93-5.22) 10^6/uL 4.71 Hgb (11.2-15.7) g/dL 13.7 Hct (36.0-46.0) % 41.2 MCV (80-95) fL 88 MCH (27.0-33.0) pg 29.1 MCHC (32.0-36.0) % 33.3 RDW (11.7-14.6) % 12.1 Plt Count (130-400) 10^3/uL 190 MPV (8.0-11.0) fL 10.1 Immature Gran % 0.2 Neutrophils % 72.9 Lymphocytes % 22.6 Monocytes % 3.7 Eosinophils % 0.3 Basophils % 0.3 Nucleated RBC % (0.0-0.3) % 0.0 Absolute Neutrophils (1.2-6.7) 10^3/uL 4.17 Absolute Lymphocytes (1.2-3.4) 10^3/uL 1.29 Absolute Monocytes (0.1-0.8) 10^3/uL 0.21 Absolute Eosinophils (0.0-0.7) 10^3/uL 0.02 Absolute Basophils (0.0-0.2) 10^3/uL 0.02 PT (9.3-11.0) sec 9.9 INR (0.9-1.1) 1.0 APTT (21.5-31.9) sec 26.3 Sodium (136-145) mmol/L 139 Potassium (3.5-5.1) mmol/L 3.5 Chloride (98-107) mmol/L 100 Carbon Dioxide (21.0-32.0) mmol/L 30.6 Anion Gap (3-11) mmol/L 8.4 BUN (7-18) mg/dL 14 Creatinine (0.55-1.02) mg/dL 0.9 Est GFR (CKD-EPI 2020) (mL/min/1.73m2) 62.26 Glucose (74-106) mg/dL 140 H Calcium (8.5-10.1) mg/dL 9.5 Magnesium (1.8-2.4) mg/dL 1.4 L Total Bilirubin (0.2-1.0) mg/dL 1.1 H AST (15-37) U/L 17 ALT (14-59) U/L 25 Alkaline Phosphatase (46-116) U/L 72 Troponin I (<or=60) ng/L < 50 Total Protein (6.4-8.2) g/dL 8.2 Albumin (3.4-5.0) g/dL 4.1 Urine Color (Yellow) Urine Clarity (Clear) Urine pH (5-8) Ur Specific [place] (1.005-1.025) Urine Protein (Negative) mg/dL Urine Ketones (Negative) mg/dL Urine Blood (Negative) Urine Nitrite (Negative) Urine Bilirubin (Negative) Urine Urobilinogen (Up to 0.2) mg/dL Ur Leukocyte Esterase (Negative) Urine RBC (0-2) HPF Urine WBC (0-5) HPF Ur Epithelial Cells (Negative) HPF Urine Crystals (Negative) HPF Urine Bacteria (Negative) HPF Urine Casts (Negative) LPF Urine Mucus (Negative) Ur Culture Indicated? Urine Glucose (Negative) mg/dL Range/Units 11/23/22 10:42 WBC (4.4-10.8) 10^3/uL RBC (3.93-5.22) 10^6/uL Hgb (11.2-15.7) g/dL Hct (36.0-46.0) % MCV (80-95) fL MCH (27.0-33.0) pg MCHC (32.0-36.0) % RDW (11.7-14.6) % Plt Count (130-400) 10^3/uL MPV (8.0-11.0) fL Immature Gran % Neutrophils % Lymphocytes % Monocytes % Eosinophils % Basophils % Nucleated RBC % (0.0-0.3) % Absolute Neutrophils (1.2-6.7) 10^3/uL Absolute Lymphocytes (1.2-3.4) 10^3/uL Absolute Monocytes (0.1-0.8) 10^3/uL Absolute Eosinophils (0.0-0.7) 10^3/uL Absolute Basophils (0.0-0.2) 10^3/uL PT (9.3-11.0) sec INR (0.9-1.1) APTT (21.5-31.9) sec Sodium (136-145) mmol/L Potassium (3.5-5.1) mmol/L Chloride (98-107) mmol/L Carbon Dioxide (21.0-32.0) mmol/L Anion Gap (3-11) mmol/L BUN (7-18) mg/dL Creatinine (0.55-1.02) mg/dL Est GFR (CKD-EPI 2020) (mL/min/1.73m2) Glucose (74-106) mg/dL Calcium (8.5-10.1) mg/dL Magnesium (1.8-2.4) mg/dL Total Bilirubin (0.2-1.0) mg/dL AST (15-37) U/L ALT (14-59) U/L Alkaline Phosphatase (46-116) U/L Troponin I (<or=60) ng/L Total Protein (6.4-8.2) g/dL Albumin (3.4-5.0) g/dL Urine Color (Yellow) Yellow Urine Clarity (Clear) Clear Urine pH (5-8) 6.0 Ur Specific [place] (1.005-1.025) 1.010 Urine Protein (Negative) mg/dL Negative Urine Ketones (Negative) mg/dL Negative Urine Blood (Negative) Negative Urine Nitrite (Negative) Negative Urine Bilirubin (Negative) Negative Urine Urobilinogen (Up to 0.2) mg/dL 0.2 Ur Leukocyte Esterase (Negative) Trace H Urine RBC (0-2) HPF Negative Urine WBC (0-5) HPF 0-2 Ur Epithelial Cells (Negative) HPF Rare Urine Crystals (Negative) HPF Negative Urine Bacteria (Negative) HPF Negative Urine Casts (Negative) LPF Negative Urine Mucus (Negative) Negative Ur Culture Indicated? Yes Urine Glucose (Negative) mg/dL Negative HPI General Mode of arrival: EMS . Date/Time Provider Initiated Documentation: 11/23/22 09:50 . Limitations to Documentation: no limitations . Information obtained by: patient, RN notes reviewed and old records reviewed . HPI Narrative: 87-year-old female with a past medical history of a 4 mm left MCA aneurysm which was discovered in June of this year. She is being followed by neurology and [facility] neurology presents to the ER with a chief complaint of dizziness, feeling foggy and feeling off balance. She is alert and oriented x4 upon arrival has no focal motor neurodeficits, he denies any chest pain shortness of breath or problems urinating. No pronator drift no leg drop. Of note she did not take her blood pressure medication this morning or her Atorvastatin. she is normally on losartan 25 mg. Other past medical history includes GERD, TIA, hypertension, carotid stenosis on the left, hypomagnesemia basal cell carcinoma. Surgical history includes appendectomy cholecystectomy and the lingulectomy segmentectomy. Related Data Home Medications Medication Instructions Recorded Confirmed vitamin B comp and C no.3 15 mg-10 1 cap PO DAILY 08/11/20 11/23/22 mg-50 mg-5 mg-300 mg capsule (B Complex Plus Vitamin C) ascorbic acid (vitamin C) 1,000 mg 1 g PO DAILY 09/08/20 11/23/22 tablet atorvastatin 10 mg tablet 10 mg PO DAILY #90 tabs 02/24/22 11/23/22 omeprazole 20 mg capsule,delayed 20 mg PO DAILY #90 caps 02/24/22 11/23/22 release albuterol sulfate 90 mcg/actuation 2 puff inhalation Q6H PRN 07/21/22 11/23/22 aerosol inhaler shortness of breath or wheezing #18 grams ondansetron HCl 4 mg tablet 4 mg PO Q8H PRN nausea and 07/26/22 11/23/22 vomiting #30 tabs losartan 25 mg tablet 25 mg PO DAILY #60 tabs 11/18/22 11/23/22 cephalexin 500 mg tablet 500 mg PO BID 7 days #14 tabs 11/23/22 Previous Rx's Medication Instructions Recorded atorvastatin 10 mg tablet 10 mg PO DAILY #90 tabs 02/24/22 omeprazole 20 mg capsule,delayed 20 mg PO DAILY #90 caps 02/24/22 release albuterol sulfate 90 mcg/actuation 2 puff inhalation Q6H PRN 07/21/22 aerosol inhaler shortness of breath or wheezing #18 grams ondansetron HCl 4 mg tablet 4 mg PO Q8H PRN nausea and 07/26/22 vomiting #30 tabs losartan 25 mg tablet 25 mg PO DAILY #60 tabs 11/18/22 cephalexin 500 mg tablet 500 mg PO BID 7 days #14 tabs 11/23/22 Allergies Allergy/AdvReac Type Severity Reaction Status Date / Time No Known Allergies Allergy Verified 11/23/22 09:58 General Stated Complaint: [facility] FARNAZ: 3 Review of Systems All systems reviewed & are unremarkable except as noted in HPI and below PFSH All Active Problems (Updated 11/23/22 @ 12:04 by Fallon Nguyen NP) Acute UTI (Acute) Dizziness (Acute) Neck pain (Acute) Babinski reflex (Acute) 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, s/p segmentectomy Pulmonary nodule (Chronic 03/07/17) Hyperlipidemia (Chronic) Chronic GERD (Chronic) Non-small cell cancer of left lung (Chronic) ([facility] report 05/28/18) Stage 1a adenocarcinoma of the left upper lobe. Possible left upper lobe lung local recurrent adenocarcinoma original diagnosis in November 2014 as stage Ia disease resected in [place]. (Meghan Schwartz MD) Actinic keratoses (Acute) Polyp of colon (Acute 03/07/17) Neoplasm of unspecified behavior of bone, soft tissue, and skin (Acute) Dr Pablo Krueger lateral neck-shave excision 02/18/19 Dysfunction of both eustachian tubes (Acute) Basal cell carcinoma of neck (Acute) 03/11/19 Dr Shah Skin tag (Acute) Pain with urination (Acute) Burning with urination (Acute) Cough (Acute) Eczema craquele (Acute) 05/20/20 [facility] [place] [facility] [place] [place] 07/15/20 Dr Tenorio [facility] Xerosis cutis (Acute) Epistaxis (Acute) 09/04/20 Tetracaine and Silver Nitrate application for control of bleeding by ENT. 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 (Acute) [facility] Dizziness (Acute) Right arm numbness (Acute) Transient ischemic attack (TIA) (Acute) Hypertension (Chronic) Paresthesia of right arm and leg (Acute) Vascular malformation (Acute) Carotid stenosis, left (Acute) Aneurysm of middle cerebral artery (Acute) Essential hypertension (Acute) Abnormal weight loss (Acute) Mild cognitive impairment (Acute) Medical History History of basal cell carcinoma Dr Pablo Krueger [place] Surgical History (L)Lingulectomy(Segmentectomy) (11/11/14) Appendectomy (~1969) Cholecystectomy (~2007) Family History Mother Stroke Father Stroke Sister Diabetes Social History Smoking/Tobacco Use Status: Former Tobacco Use Tobacco: How many years used: 40 Smoking risk assessment performed?: Yes Alcohol Intake: never Drug use: Never Substance use type: does not use Counseling provided: other (N/A) Adopted: No Caregiver/Support person: No Housing: house Number of Children: 0 Communication Needs: Hard of Hearing Education Level: high school current occupation: retired Pets and animals: No Do you think of yourself as: straight/heterosexual Current gender identity: female What is your relationship status?: How often do you talk on the phone with friends or family?: three or more times per week How often do you get together with friends or relatives?: once per week Do you belong to any clubs or organized social groups?: yes Panel score (0-1 are the most socially isolated patients): 2 What type of physical activity do you participate in: regular exercise and other Details: dances (has not done so during the past 12mo due to COVID) 08/21/20 Frequency: 3-4 times per week Seatbelt use: always Drive intox or ride w/intox driver merchandiser: No Working smoke detector in home: Yes Fire extinguisher in home: Yes Carbon monox detector in home: Yes Do you feel safe at home: Yes Do you feel safe in your relationship?: Yes Exam Narrative Exam Narrative: Constitutional: Alert and oriented x3. Appears stated age. Normal body habitus. Head: Normocephalic, no trauma. Eyes: Pupils PERRL, Red reflex noted, EOM's intact. Eyelids symmetrical without lesions, discharge, or swelling. ENT: Bilateral TM's WNL, External ear normal to inspection, no mastoid TTP, swelling, or erythema, Nasal turbinates WNL, no nasal discharge. Normal dentition, Posterior pharynx WNL, no exudate. Chest: RRR, Normal S1, S2, distal pulses intact. Resp: Lungs clear to auscultation bilaterally, no wheezes, rales, or rhonchi. Abdomen: Soft, non-distended, Normoactive bowel sounds all 4 quads. Musculoskeletal: Normal gait, 5/5 strength to all four extremities. Skin: No suspicious rashes or lesions. Capillary refill less than 2 sec. Neurologic: Cranial nerves II-XII intact. Alert and oriented x 3. Motor: No deficits noted. Sensory: Intact bilaterally all 4 extremities. No pronator drift, no facial droop, no leg drop. Home Support Worker 5 out of 5 equal bilaterally. Hematologic/Lymphatic: No ecchymosis, no lymphadenopathy. Course Vital Signs Vital signs: Vital Signs Temperature 37.1 C 11/23/22 09:52 Pulse 97 H 11/23/22 09:52 Respiratory Rate 20 11/23/22 09:52 Blood Pressure 181/73 H 11/23/22 09:52 Pulse Oximetry 97 11/23/22 09:52 Temperature 37.1 C 11/23/22 09:52 Temperature Source Oral 11/23/22 09:52 Pulse 97 H 11/23/22 09:52 Respiratory Rate 20 11/23/22 09:52 Blood Pressure 181/73 H 11/23/22 09:52 Pulse Oximetry 97 11/23/22 09:52 Oxygen Delivery Method Room Air 11/23/22 09:52 Oxygen Flow Rate 0 11/23/22 09:52
[2022-11-23 10:03] VITALS: RESP 20
[2022-11-23] MEDS: Meclizine 12.5 MG TAB PO (10:11)
[2022-11-23 10:14] LABS: Abs Immature Grans 0.01 10^3/uL (0.0-0.06); Absolute Basophil Count 0.02 10^3/uL (0.0-0.2); Absolute Eosinophil Count 0.02 10^3/uL (0.0-0.7); Absolute Lymphocyte Count 1.29 10^3/uL (1.2-3.4); Absolute Monocyte Count 0.21 10^3/uL (0.1-0.8); Absolute Neutrophil Count 4.17 10^3/uL (1.2-6.7); Basophils % 0.3; Eosinophils % 0.3; HCT 41.2 % (36.0-46.0); HGB 13.7 g/dL (11.2-15.7); Immature Grans % 0.2; Lymphocytes % 22.6; MCH 29.1 pg (27.0-33.0); MCHC 33.3 % (32.0-36.0); MCV 88 fL (80-95); MPV 10.1 fL (8.0-11.0); Monocytes % 3.7; Neutrophils % 72.9; Platelet Count 190 10^3/uL (130-400); RBC 4.71 10^6/uL (3.93-5.22); RDW 12.1 % (11.7-14.6); RDW-SD 38.8 fL; WBC 5.72 10^3/uL (4.4-10.8)
[2022-11-23 10:26] LABS: PTT Activated 26.3 sec (21.5-31.9); Prothrombin Time 9.9 sec (9.3-11.0)
[2022-11-23 10:30] LABS: ALT 25 U/L (14-59); AST 17 U/L (15-37); Albumin 4.1 g/dL (3.4-5.0); Alkaline Phosphatase 72 U/L (46-116); Anion Gap 8.4 mmol/L (3-11); BUN 14 mg/dL (7-18); Bilirubin, Total 1.1 mg/dL (0.2-1.0); CO2 30.6 mmol/L (21.0-32.0); CREATININE 0.9 mg/dL (0.55-1.02); Calcium 9.5 mg/dL (8.5-10.1); Chloride 100 mmol/L (98-107); Estimated GFR 62.26 (mL/min/1.73m2); Glucose 140 mg/dL (74-106); Magnesium 1.4 mg/dL (1.8-2.4); Potassium 3.5 mmol/L (3.5-5.1); Sodium 139 mmol/L (136-145); Total Protein 8.2 g/dL (6.4-8.2); Troponin I < 50 ng/L (<or=60)
[2022-11-23] MEDS: Omnipaque 350 MG/ML 100 ML BTL IJ (10:40)
[2022-11-23] MEDS: Normal Saline Flush 10 ML SYR IVP (10:41)
[2022-11-23] MEDS: Normal Saline - Diluent 50 ML VIAL IJ (10:41)
[2022-11-23 10:50] LABS: Bilirubin Negative (Negative); Blood Negative (Negative); Clarity Clear (Clear); Glucose Negative (Negative); Ketones Negative (Negative); Leukocyte Esterase Trace (Negative); Nitrite Negative (Negative); Urobilinogen 0.2 mg/dL (Up to 0.2)
[2022-11-23 10:56] LABS: Bacteria Negative HPF (Negative); C & S Indicated? Yes; Casts Negative LPF (Negative); Crystals Negative HPF (Negative); Epithelial Cells Rare HPF (Negative); Mucus Negative (Negative); RBC Negative HPF (0-2); WBC 0-2 HPF (0-5)
[2022-11-23] MEDS: MAGNESIUM SULFATE 1 GM/100 ML BAG IVPB (11:21)
[2022-11-23] MEDS: Losartan 25 MG TAB PO (12:00)
[2022-11-23] MEDS: Cephalexin 500 MG CAP PO (12:08)
[2022-11-23 12:27] VITALS: BP 165/82; PULSE 92; RESP 17; O2SAT 96
[2022-11-23 12:37] LABS: Troponin I < 50 ng/L (<or=60)
== END 2022-11-23 12:49 | disposition home or self-care (01) ==
LOC: ER 12:49
PROVIDERS: Emergency Provider Registered Nurse Emergency; PCP Family Medicine
DX: R42 Dizziness and giddiness (principal); N39.0 Urinary tract infection, site not specified; Z86.79 Personal history of other diseases of the circulatory system; I10 Essential (primary) hypertension; Z86.73 Personal history of transient ischemic attack (TIA), and cerebral infarction without residual deficits; I65.22 Occlusion and stenosis of left carotid artery; E78.5 Hyperlipidemia, unspecified; Z90.49 Acquired absence of other specified parts of digestive tract
CPT/HCPCS: 36415; 70496; 70498; 80053; 93005; 96374; 99284; 81003; 81015; 83735; 84484; 85025; 85610; 85730; 87086; 93010; 99285; J3475; J3490

== ENCOUNTER → 2022-11-29 01:06 | Outpatient (CLI) | payer MEDICARE, OTHER, SELFPAY ==
--- NOTE | 2022-11-29 08:15 | DI.US_ITS ---
Exam(s) US CAROTID EXAM: US CAROTID CLINICAL HISTORY: L ICA stenosis?,carotid stenosis,i65.29. TECHNIQUE: Ultrasound carotids performed using grayscale, color-flow, and spectral Doppler imaging. COMPARISON: US US ECHOCARDIOGRAM from 06/20/2022 FINDINGS: CAROTID ARTERIES: There is calcified plaque in the distal right common carotid artery, bulb, and proximal right ICA. T here is an elevated peak systolic velocity of 138 cm/sec consistent with moderate stenosis of 50-69 p ercent On the opposite-left side there is calcified plaque noted but with velocities being upper normal, con sistent with less than 50 percent stenosis VERTEBRAL ARTERIES: Antegrade flow demonstrated in both vertebral arteries. Measurements: R Bulb: 86.7cm/s PS / 28.3cm/s ED R CCA: 68.4cm/s PS / 21cm/s ED R ECA: 113.3cm/s PS / 22cm/s ED R ICA Prox: 138cm/s PS / 30.5cm/s ED R ICA Mid: 87.4cm/s PS / 27.3cm/s ED R ICA Distal: 72.4cm/s PS /29.8cm/s ED R Vert: 61.2cm/s PS / 20.9cm/s ED R SVR: 2 R DVR: 1.5 L Bulb: 50.8cm/s PS / 16.1cm/s ED L CCA: 56.5cm/s PS / 18cm/s ED L ECA: 77.8cm/s PS / 5.6cm/s ED L ICA Prox: 91.3cm/s PS / 31.3cm/s ED L ICA Mid: 109.5cm/s PS / 43.3cm/s ED L ICA Distal: 91.2cm/s PS / 37.8cm/s ED L Vert: 40.9cm/s PS / 12.7cm/s ED L SVR: 1.9 L DVR: 2.4 IMPRESSION: There is calcified plaque evident at the carotid bulbs and proximal internal carotid arteries bilater ally, with some elevated velocities evident on the right side indicating stenosis of 50-69 percent on the right side. Non elevated velocities on left side indicate that the amount of stenosis is less t santos 50 percent. Antegrade flow is demonstrated in both vertebral arteries Criteria for Carotid Stenosis: Normal: ICA PSV <125 cm/s no plaque or intimal thickening is visible. <50% stenosis: ICA PSV <125 cm/s and plaque or intimal thickening is visible. 50-69% stenosis: ICA PSV is 125-250 cm/s and plaque is visible. >70% stenosis to near occlusion: ICA PSV >250 cm/s with visible plaque and luminal narrowing. DATA REPOSITORY:
== END ==
PROVIDERS: PCP Family Medicine; Visit Provider Psychiatry & Neurology Neurology
DX: I65.23 Occlusion and stenosis of bilateral carotid arteries (principal)
CPT/HCPCS: 93880

== ENCOUNTER → 2023-01-03 13:11 | Outpatient (BNVA) | payer MEDICARE, OTHER, SELFPAY | PROVIDERS: PCP Family Medicine; Referring Provider Family Medicine; Visit Provider Psychiatry & Neurology Neurology | DX: R20.2 Paresthesia of skin (principal); Q27.9 Congenital malformation of peripheral vascular system, unspecified; I65.22 Occlusion and stenosis of left carotid artery; I67.1 Cerebral aneurysm, nonruptured; R29.2 Abnormal reflex; I10 Essential (primary) hypertension | CPT/HCPCS: 99214 ==

== ENCOUNTER → 2023-04-26 01:38 | Outpatient (CLI) | payer MEDICARE, OTHER, SELFPAY ==
--- NOTE | 2023-04-26 07:45 | DI.US_ITS ---
Exam(s) US CAROTID EXAM: US CAROTID CLINICAL HISTORY: R>L carotid stenosis,I65.21,I65.22. TECHNIQUE: Ultrasound carotids performed using grayscale, color-flow, and spectral Doppler imaging. COMPARISON: US US CAROTID from 11/29/2022 FINDINGS: CAROTID ARTERIES: Both common carotid arteries are patent. There is some plaque noted in the carotid bulbs bilaterally; less so in the proximal internal carotid arteries. There are no elevated velocit ies. VERTEBRAL ARTERIES: Antegrade flow demonstrated in both vertebral arteries. Measurements: R Bulb: 95.4cm/s PS / 32cm/s ED R CCA: 63.5cm/s PS / 15.6cm/s ED R ECA: 77.5cm/s PS / 0cm/s ED R ICA Prox: 119.3cm/s PS / 22.9cm/s ED R ICA Mid: 64cm/s PS / 26.9cm/s ED R ICA Distal: 88.9cm/s PS /27.8cm/s ED R Vert: 56.7cm/s PS / 17.4cm/s ED R SVR: 1.9 R DVR: 1.5 L Bulb: 93.1cm/s PS / 21.3cm/s ED L CCA: 60.3cm/s PS / 18.6cm/s ED L ECA: 99cm/s PS / 0cm/s ED L ICA Prox: 97.3cm/s PS / 26.7cm/s ED L ICA Mid: 93.9cm/s PS / 29.9cm/s ED L ICA Distal: 62.1cm/s PS / 19.9cm/s ED L Vert: 43.3cm/s PS / 11.5cm/s ED L SVR: 1.6 L DVR: 1.4 IMPRESSION: 1. There is some plaque noted bilaterally at the level the carotid bulbs but no significantly elevate d velocities indicating the amount of stenosis is less than 50 percent bilaterally. 2. Antegrade flow was demonstrated in both vertebral arteries. Criteria for Carotid Stenosis: Normal: ICA PSV <125 cm/s no plaque or intimal thickening is visible. <50% stenosis: ICA PSV <125 cm/s and plaque or intimal thickening is visible. 50-69% stenosis: ICA PSV is 125-250 cm/s and plaque is visible. >70% stenosis to near occlusion: ICA PSV >250 cm/s with visible plaque and luminal narrowing. DATA REPOSITORY:
== END ==
PROVIDERS: PCP Family Medicine; Visit Provider Psychiatry & Neurology Neurology
DX: I65.21 Occlusion and stenosis of right carotid artery (principal); I65.22 Occlusion and stenosis of left carotid artery
CPT/HCPCS: 93880

== ENCOUNTER → 2023-07-04 12:46 | Outpatient (BNVA) | payer MEDICARE, OTHER, SELFPAY | PROVIDERS: PCP Family Medicine; Visit Provider Psychiatry & Neurology Neurology | DX: R20.2 Paresthesia of skin (principal); Q27.9 Congenital malformation of peripheral vascular system, unspecified; G31.84 Mild cognitive impairment of uncertain or unknown etiology; R29.2 Abnormal reflex | CPT/HCPCS: 99214 ==

== ENCOUNTER → 2023-07-11 02:15 | Outpatient (CLI) | payer MEDICARE, OTHER, SELFPAY ==
--- NOTE | 2023-07-11 | DI.CT_ITS ---
Exam(s) CT CHEST WO EXAM: CT CHEST WO CLINICAL HISTORY: LEFT LUNG CANCER C34.92 EVAL FOR INTERVAL RESPONSE. TECHNIQUE: Multi planar reconstructions were performed. CONTRAST MATERIAL: None COMPARISON: CT CT CHEST WO from 02/22/[address] CHEST WO from 06/15/2022 FINDINGS: CHEST: LUNGS: In the left lung the previously described density extending from the hilum out of the left upp er lobe pleural surface is unchanged from 06/15/2022 and also exhibits minimal if any significant lori nge from prior CT scan of 02/22/2021. consistent with postoperative changes in scarring. A calcified granuloma laterally in the left upper lobe is also unchanged. No new left lung findings and no pleu ral effusion. No new significant right lung findings. Chronic interstitial disease again noted bila terally. MEDIASTINUM: There is no obvious new hilar nor mediastinal adenopathy. No supraclavicular adenopathy . No axillary adenopathy.Visualized thyroid appears unremarkable. There is some circumferential thi ckening of the upper esophagus noted. May be related to post radiation changes. CARDIAC: Heart size is normal. There is no pericardial effusion.Caliber of the thoracic aorta is wit hin upper normal limits. VISUALIZED UPPER ABDOMEN:Abdominal aorta is heavily calcified and there is some medially located calc ified intima which is unchanged but may be associated with chronic dissection. OSSEOUS: No fractures. No osseous lesions.. IMPRESSION: 1. Continued stable appearance of previously described left upper lobe findings. 2. No new significant intrathoracic findings. 3. RADIATION DOSE DELIVERED: Total DLP DATA REPOSITORY: All CT scans at this facility are submitted to the National Radiology Data Registry (NRDR) Dose Index Registry (DIR) with the [employer] (ACR). RADIATION OPTIMIZATION: All CT scans at this facility use at least one of these dose optimization te chniques: automated exposure control; mA and/or kV adjustment per patient size (includes targeted exa ms where dose is matched to clinical indication); or iterative reconstruction.
== END ==
PROVIDERS: PCP Family Medicine; Visit Provider Radiology Radiation Oncology
DX: C34.92 Malignant neoplasm of unspecified part of left bronchus or lung (principal); J84.89 Other specified interstitial pulmonary diseases
CPT/HCPCS: 71250

== ENCOUNTER → 2023-10-05 12:44 | Outpatient (BNVA) | payer MEDICARE, OTHER, SELFPAY | PROVIDERS: PCP Family Medicine; Referring Provider Family Medicine; Visit Provider Surgery | DX: L82.1 Other seborrheic keratosis (principal); L57.0 Actinic keratosis; Z85.828 Personal history of other malignant neoplasm of skin | CPT/HCPCS: 17000; 17003; 99214 ==

== ENCOUNTER → 2023-11-16 01:00 | Outpatient (CLI) | payer MEDICARE, OTHER, SELFPAY ==
[2023-11-16 14:05] LABS: CREATININE 0.9 mg/dL (0.55-1.02); Estimated GFR 61.87 (mL/min/1.73m2)
[2023-11-16] MEDS: Omnipaque 350 MG/ML 100 ML BTL IJ (14:23)
[2023-11-16] MEDS: Normal Saline - Diluent 50 ML VIAL IJ (14:28)
--- NOTE | 2023-11-16 14:30 | DI.CT_ITS ---
Exam(s) CT BRAIN CTA EXAM: CT BRAIN CTA CLINICAL HISTORY: aneurysm of MCA, I67.1. TECHNIQUE: Imaging Protocol: Axial CT angiography was performed with multi-slice acquisition and mu lti-planar and/or 3D reconstructions. CONTRAST MATERIAL: Intravenous: Omnipaque 350 Contrast volume:structured data mL Intravenous: Omnipaque 350 Contrast volume:100 ml COMPARISON: CT CT BRAIN NECK CTA from 11/23/2022 FINDINGS: Ventricles and Extra axial spaces: Normal in size and morphology for the patient's age. Hemorrhage: None. Cerebral parenchyma: Mild atrophy. Mild white matter changes of small vessel disease. Midline shift: None. Brainstem/Cerebellum: Normal. Calvarium: Normal. Visualized Paranasal sinuses/Mastoids: Clear. Soft Tissues: Unremarkable. Enhancement: No abnormal enhancing lesions. CTA Brain W: Internal Carotid Arteries: Petrous: Normal. Cavernous: Calcification but no significant stenosis. Cerebral: Normal. Middle Cerebral Arteries: Right: No aneurysm, occlusion or significant stenosis. Left: Stable size and appearance of previously noted aneurysm at the bifurcation of the M1 and M2 se gments, measuring 4.5 millimeters in diameter. No occlusion or significant stenosis. Anterior Cerebral Arteries: Right: No aneurysm, occlusion or significant stenosis. Left: No aneurysm, occlusion or significant stenosis. Posterior cerebral Arteries: Right: No aneurysm, occlusion or significant stenosis. Left: No aneurysm, occlusion or significant stenosis. Vertebral Arteries: Right: No aneurysm, occlusion or significant stenosis. Left: No aneurysm, occlusion or significant stenosis. Basilar Artery: No aneurysm, occlusion or significant stenosis. IMPRESSION: 1. stable aneurysm measuring 4.5 millimeters in diameter at the bifurcation of the left M1 and M2 seg ments of the middle cerebral artery. 2. Unremarkable CT Head. RADIATION DOSE DELIVERED: Total DLP Total DLP DATA REPOSITORY: All CT scans at this facility are submitted to the National Radiology Data Registry (NRDR) Dose Index Registry (DIR) with the [employer] (ACR). RADIATION OPTIMIZATION: All CT scans at this facility use at least one of these dose optimization te chniques: automated exposure control; mA and/or kV adjustment per patient size (includes targeted exa ms where dose is matched to clinical indication); or iterative reconstruction.
== END ==
PROVIDERS: PCP Family Medicine; Visit Provider Psychiatry & Neurology Neurology
DX: Q27.9 Congenital malformation of peripheral vascular system, unspecified (principal); I67.1 Cerebral aneurysm, nonruptured
CPT/HCPCS: 70496; 82565; J3490

== ENCOUNTER → 2024-01-02 11:12 | Outpatient (BNVA) | payer MEDICARE, OTHER, SELFPAY | PROVIDERS: PCP Family Medicine; Visit Provider Psychiatry & Neurology Neurology | DX: M54.2 Cervicalgia (principal); R20.2 Paresthesia of skin; G31.84 Mild cognitive impairment of uncertain or unknown etiology | CPT/HCPCS: 99214 ==

== ENCOUNTER 2024-03-08 12:05 | Outpatient (REF) | payer MEDICARE, OTHER, SELFPAY | END 2024-03-08 12:06 | disposition home or self-care (01) | LOC: LBN 12:05 | PROVIDERS: PCP Family Medicine; Visit Provider Family Medicine | DX: N89.8 Other specified noninflammatory disorders of vagina (principal); I10 Essential (primary) hypertension | CPT/HCPCS: 87480; 87510; 87660 ==

== ENCOUNTER 2024-03-24 09:55 | Emergency (ER) | payer MEDICARE, OTHER, SELFPAY ==
[2024-03-24] VITALS (11 sets, daily range): BP systolic 173–198; BP diastolic 92–126; PULSE 80–111; RESP 18–35; TEMP 37; O2SAT 80–97
--- NOTE | 2024-03-24 09:45 | RT.EKG_ITS ---
APPROVED REPORT Exam: Resting ECG Reason for Exam: Difficulty Breathing Patient Location: E HR:101 bpm ECG Measurements Heart Rate 101 AXIS CA 149 P 72 QRSd 78 QRS 87 QT 361 T 70 QTc 468 Conclusion Sinus tachycardia...rate> 99 Ventricular premature complex...V complex w/ short R-R interval Probable left atrial enlargement...P >50mS, <-0.10mV V1 Probable anterolateral infarct, old...Q>35mS, abnrm ST-T, V2-V6,I,aVL Narrow complex sinus tachycardia at a rate of 101. Normal axis. Intervals within normal limits. Mi ld anterior ST segment elevation in leads V1 and V2 with mild inferior depressions. Mild ST segment elevations appear similar to prior dated last year. No acute injury pattern.
--- NOTE | 2024-03-24 09:58 | ED.GENADUL_ITS ---
Discharge Plan Disposition Patient Disposition: Home Discharge Details Clinical Impression: Shortness of breath Primary Care Provider: Lele Cannon ED Provider: Nahum Rojo Home Meds and New Rx's Prescriptions: Continued ascorbic acid (vitamin C) 1,000 mg tablet 1 g PO DAILY meclizine 12.5 mg tablet 12.5 mg PO TID PRN (Reason: dizziness) Qty: 30 0RF losartan 25 mg tablet 25 mg PO DAILY Qty: 90 3RF albuterol sulfate 90 mcg/actuation HFA aerosol inhaler 2 puff IH Q6H PRN (Reason: shortness of breath or wheezing) Qty: 18 6RF omeprazole 20 mg capsule,delayed release(DR/EC) 20 mg PO DAILY Qty: 90 3RF B Complex Plus Vitamin C 60-71-24-5-300 mg capsule 1 cap PO DAILY Rx Instructions: give with food (meal/snack) atorvastatin 10 mg tablet 10 mg PO DAILY Qty: 90 3RF Discharge Instructions Additional Instructions: You were seen in the emergency department for shortness of breath. Your c hest x-ray showed no sign of pneumonia and your CAT scan showed no sign of a blood clot in your lungs. Please follow-up with your primary care provider next week. As we discussed, please return to the emergency department if you develop any rash any weakness or any fevers. Discharge Data Discharge Date/Time-TO BE ENTERED AT DEPARTURE: 03/24/24 13:02 HPI General Date/Time Provider Initiated Documentation: 03/24/24 09:57 . HPI Narrative: MDM This is an overall very well-appearing mildly tachycardic and hypertensive but normothermic 79-year-old female short of breath history of lung cancer concerning for possible complication from her lobectomy versus PE based on age. Will obtain troponins to assess for ACS given shortness of breath and age. No trauma and equal breath sounds so doubt pneumothorax. Patient has been history of reactive airway disease but is not markedly wheezing at the moment. She did notes improvement with her nebulized albuterol so she does not have an obvious infiltrate or PE will consider steroids. Patient does not appear markedly volume overloaded and has no history of heart failure and no B-lines and no indication for IV diuretics. No black or bloody stools to suggest anemia. No recent exposure to nitrites to suggest methemoglobinemia. No carbon monoxide exposure to suggest carbon monoxide toxicity. No history of pulmonary hypertension 12:45 PM Patient had a elevated D-dimer unfortunately reassuring CTA with no signs of PE nor pneumonia. No MEENA. Reassuring delta troponin not consistent with ACS. On reassessment patient had no wheezes no respiratory distress so I felt that the risks of steroids outweigh the benefits. No fevers or cough to suggest COVID so I did not obtain a viral swab. She mentions numbness in the left side of her neck. She was neurologically intact and my suspicion was low for CVA so did not feel that she required neuroconsult nor MRI. No rash to neck to suggest zoster. No ear pain to suggest acute otitis media. No mastoid tenderness to suggest mastoiditis. We discussed that her symptoms could be related to early zoster. She had no rashes so no indication for treatment however advised her that if she develop weakness syncope or rash that she should return to the ED. No loss of bowel or bladder control to suggest tonic-clonic seizures no indication for EEG. Given no headache and no weakness my suspicion is low for TIA. Otherwise she should be seen later this week by her primary care provider. No headache to suggest subarachnoid hemorrhage. Chronic conditions affecting the care of the patient: Prior CVA History obtained from an outside historian: Paramedics External record review: N/A [Diagnostic interpretations performed by me: Per my independent interpretation chest x-ray shows: Chronic changes Per my independent interpretation EKG shows: Narrow complex sinus tachycardia at a rate of 101. Normal axis. Intervals within normal limits. Mild anterior ST segment elevation in leads V1 and V2 with mild inferior depressions. Mild ST segment elevations appear similar to prior dated last year. No acute injury pattern. ]Medications: N/A Social determinants of health affecting disposition: N/A Management discussed with: N/A Treatment/interventions considered: N/A Response to therapies provided: N/A HPI This is an 88-year-old female with history of reactive airway disease and malignant neoplasm of left lung arrives emergency department via EMS in the setting of difficulty breathing. Patient notes that she woke up this morning and began having difficulty breathing. She noted that her difficulty breathing improved when she laid down. She laid in bed and was reading. She denies lower extremity swelling. No chest pain nausea vomiting nor any history of heart failure. No fevers no cough. Denies routine tobacco, ethanol, and illicits. Attempted treatment at home with her nebulizer albuterol which slightly improved her symptoms. Exam General: Elderly-appearing in no acute distress speaking in complete sentences. Head: Normocephalic, atraumatic. Eye: Extraocular eye movements intact. No conjunctival injection. No scleral icterus. Ear, nose, mouth, throat: Grossly normal inspection. Normal voice, handling secretions normally. Neck: Trachea midline. Cardiovascular: Well-perfused distal extremities. Regular rate and rhythm Respiratory: Nonlabored respiration. Clear lungs bilaterally. Gastrointestinal: Nondistended abdomen. Soft nontender Musculoskeletal: No no significant lower extremity pitting edema. Moving all 4 extremities spontaneously. Skin: Normal for age and race, grossly normal temperature and turgor. No acute rash. Neurologic: Alert and appropriate, no apparent acute deficits. Psychiatric: Mood and manner are appropriate. Grooming and personal hygiene are appropriate. Related Data Home Medications ?Medication ?Instructions ?Recorded ?Confirmed vitamin B comp and C no.3 15 mg-10 1 cap PO DAILY 08/11/20 03/24/24 mg-50 mg-5 mg-300 mg capsule (B Complex Plus Vitamin C) ascorbic acid (vitamin C) 1,000 mg 1 g PO DAILY 09/08/20 03/24/24 tablet meclizine 12.5 mg tablet 12.5 mg PO TID PRN dizziness #30 12/01/22 03/24/24 tabs losartan 25 mg tablet 25 mg PO DAILY #90 tabs 01/13/23 03/24/24 omeprazole 20 mg capsule,delayed 20 mg PO DAILY #90 caps 03/06/23 03/24/24 release albuterol sulfate 90 mcg/actuation 2 puff inhalation Q6H PRN 04/14/23 03/24/24 aerosol inhaler shortness of breath or wheezing #18 grams atorvastatin 10 mg tablet 10 mg PO DAILY #90 tabs 02/26/24 03/24/24 Previous Rx's ?Medication ?Instructions ?Recorded meclizine 12.5 mg tablet 12.5 mg PO TID PRN dizziness #30 12/01/22 tabs losartan 25 mg tablet 25 mg PO DAILY #90 tabs 01/13/23 omeprazole 20 mg capsule,delayed 20 mg PO DAILY #90 caps 03/06/23 release albuterol sulfate 90 mcg/actuation 2 puff inhalation Q6H PRN 04/14/23 aerosol inhaler shortness of breath or wheezing #18 grams atorvastatin 10 mg tablet 10 mg PO DAILY #90 tabs 02/26/24 Allergies Allergy/AdvReac Type Severity Reaction Status Date / Time amlodipine AdvReac Intermediate Edema in Verified 03/24/24 10:00 ankles General FARNAZ: 3 Medical Decision Making Quality:SDOH Health Related Social Needs: Health related social needs inadequate housing(Z59.1) Health related social needs details none PFSH All Active Problems (Updated 03/24/24 @ 12:47 by Nahum Rojo MD) Shortness of breath (Acute) Cerumen impaction (Acute) Actinic keratosis (Acute) History of epistaxis (Acute) History of sun-damaged skin (Acute) Seborrheic keratoses (Acute) Carotid stenosis, right (Acute) Abdominal pain (Acute) Cerumen impaction (Acute) Diverticulosis (Acute) Neck pain (Acute) Babinski reflex (Acute) 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, s/p segmentectomy Pulmonary nodule (Chronic 03/07/17) Hyperlipidemia (Chronic) Chronic GERD (Chronic) 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 Possible left upper lobe lung local recurrent adenocarcinoma original diagnosis in November 2014 as stage Ia disease resected in [place]. (Meghan Schwartz MD) Actinic keratoses (Acute) Polyp of colon (Acute 03/07/17) Neoplasm of unspecified behavior of bone, soft tissue, and skin (Acute) Dr Shah L lateral neck-shave excision 02/18/19 Dysfunction of both eustachian tubes (Acute) Basal cell carcinoma of neck (Acute) 03/11/19 Dr Shah Skin tag (Acute) Pain with urination (Acute) Burning with urination (Acute) Cough (Acute) Eczema craquele (Acute) 05/20/20 Derm [facility] [place] 07/15/20 Dr Tenorio [facility] [place] Xerosis cutis (Acute) Epistaxis (Acute) 09/04/20 Tetracaine and Silver Nitrate application for control of bleeding by ENT. 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 (Acute) [facility] [place] Dermatology Dizziness (Acute) Right arm numbness (Acute) Transient ischemic attack (TIA) (Acute) Hypertension (Chronic) Paresthesia of right arm and leg (Acute) Vascular malformation (Acute) Carotid stenosis, left (Acute) Aneurysm of middle cerebral artery (Acute) Essential hypertension (Acute) Abnormal weight loss (Acute) Mild cognitive impairment (Acute) Medical History Anemia (03/07/17) History of basal cell carcinoma Dr Pablo Krueger [place] Surgical History Cholecystectomy (~2007) Appendectomy (~1969) (L)Lingulectomy(Segmentectomy) (11/11/14) Family History Mother Stroke Father Stroke Sister Diabetes Social History Smoking/Tobacco Use Status: Former Tobacco Use Tobacco: How many years used: 45 Smoking risk assessment performed?: Yes Alcohol Intake: never Drug use: Never Substance use type: does not use Counseling provided: other (N/A) Adopted: No Caregiver/Support person: No Foster care: No Household members: none Housing: house Number of Children: 0 number of grandchildren: 0 Communication Needs: Hard of Hearing Education Level: high school current occupation: retired Pets and animals: No Sexually active: No Do you think of yourself as: straight/heterosexual Current gender identity: female What is your relationship status?: How often do you talk on the phone with friends or family?: twice per week How often do you get together with friends or relatives?: decline to answer How often do you attend voodoo or yazdanism services?: decline to answer Do you belong to any clubs or organized social groups?: yes Panel score (0-1 are the most socially isolated patients): 1 Frequency: 3-4 times per week Special luis needs: No Seatbelt use: always Helmet use: Yes (Declined to answer) Drive intox or ride w/intox driver/refuse collector: No Working smoke detector in home: Yes Fire extinguisher in home: Yes Carbon monox detector in home: Yes Do you feel safe at home: Yes Do you feel safe in your relationship?: Yes POCUS Exam (ED) Limited Cardiac Exam DATE OF EXAM: 03/24/24 TIME OF EXAM: 10:21 PROVIDER THAT PERFORMED THE STUDY: Nahum Rojo IS THIS A REPEAT EXAM DURING THIS ENCOUNTER: no REASON FOR EXAM: Dyspnea VISUALIZED STRUCTURES: Four Chambers, Left ventricle and LVOT VIEW OBTAINED: Apical 4-Chamber, Parasternal long-axis, Subxiphoid and Other (Lungs bilaterally) PERTINENT FINDINGS/IMPRESSION: No pericardial effusion and No RV dilation DIFFERENTIAL DIAGNOSES: Aortic outflow track less than 4 cm, good squeeze, RV less than LV, no significant pericardial effusion. No B-lines bilaterally. Exam complete
--- NOTE | 2024-03-24 10:00 | DI.RAD_ITS ---
Exam(s) XR CHEST 2V PA LATERAL EXAM: XR CHEST 2V PA LATERAL CLINICAL HISTORY: SOB. TECHNIQUE: 2D digital imaging was performed. COMPARISON: CR XR CHEST 2V PA LATERAL from 04/14/2020 CR,XR XR CHEST 1V IN DI DEPT from 06/19/2022 FINDINGS: 2 views: Heart size is normal. The mediastinum is not widened. There is a significant area of infiltrate in the left upper lobe parahilar region again, extending fr om the hilum out towards the pleural surface, and this being a chronic finding which also appears to have been present in 2020. No new infiltrates in left lung. There are mild increased markings in th e right middle lobe. No pleural effusions. IMPRESSION: Chronic persistent infiltrate-scarring in the left upper lobe as described above. No new left lung f indings.Mild increased markings in the right middle lobe. No pleural effusions DATA REPOSITORY: RADIATION DOSE DELIVERED:
[2024-03-24 10:35] LABS: Abs Immature Grans 0.01 10^3/uL (0.0-0.06); Absolute Basophil Count 0.01 10^3/uL (0.0-0.2); Absolute Eosinophil Count 0.02 10^3/uL (0.0-0.7); Absolute Lymphocyte Count 1.58 10^3/uL (1.2-3.4); Absolute Neutrophil Count 3.61 10^3/uL (1.2-6.7); Basophils % 0.2 %; Eosinophils % 0.4 %; HCT 44.2 % (36.0-46.0); HGB 14.6 g/dL (11.2-15.7); Immature Grans % 0.2 %; Lymphocytes % 28.6 %; MCH 29.4 pg (27.0-33.0); MCV 89 fL (80-95); Monocytes % 5.4 %; Neutrophils % 65.2 %; RBC 4.96 10^6/uL (3.93-5.22); RDW 11.9 % (11.7-14.6); RDW-SD 38.9 fL; WBC 5.53 10^3/uL (4.4-10.8)
[2024-03-24 10:52] LABS: Anion Gap 10.7 mmol/L (3-11); BUN 14 mg/dL (7-18); CO2 31.3 mmol/L (21.0-32.0); CREATININE 1.1 mg/dL (0.55-1.02); Calcium 9.5 mg/dL (8.5-10.1); Chloride 98 mmol/L (98-107); Estimated GFR 48.63 (mL/min/1.73m2); Glucose 133 mg/dL (74-106); Potassium 3.3 mmol/L (3.5-5.1); Sodium 140 mmol/L (136-145); Troponin I 7 ng/L (<or=51)
[2024-03-24 11:01] LABS: Diff Comment PLT Morph Reviewed; RBC Morphology Normal
[2024-03-24 11:02] LABS: D-Dimer 1693 ng/mlFEU (<500)
--- NOTE | 2024-03-24 11:24 | DI.VRAD_ITS ---
PROCEDURE INFORMATION: Exam: XR Chest Exam date and time: 03/24/2024 10:38 AM Age: 88 years old Clinical indication: Shortness of breath TECHNIQUE: Imaging protocol: Radiologic exam of the chest. Views: 2 views. Total images: 2 COMPARISON: CT CHEST WO 07/11/2023 1:00 PM FINDINGS: Lungs: Patchy opacity is noted within the left upper lobe and is similar to the prior studies. Bilateral hyperinflation is present. Atelectatic and/or early infiltrative changes noted within both lung bases. Pleural spaces: Unremarkable. No pleural effusion. No pneumothorax. Heart/Mediastinum: The heart is not enlarged. Vasculature: Moderate atherosclerotic disease. Bones/joints: The thoracic spine demonstrates moderate degenerative changes at multiple levels. Degenerative changes of the glenohumeral and acromioclavicular joints. IMPRESSION: 1. Patchy opacity is noted within the left upper lobe and is similar to the prior studies. 2. Bilateral hyperinflation is present. 3. Atelectatic and/or early infiltrative changes noted within both lung bases. 4. Degenerative changes of the glenohumeral and acromioclavicular joints. Dictated and Authenticated by: Kenan Steele MD. Ordering:ESTRELLITA Sidhu MD
--- NOTE | 2024-03-24 11:30 | DI.CT_ITS ---
Exam(s) CT CHEST PE CTA EXAM: CT CHEST PE CTA CLINICAL HISTORY: Chest pain concern for PE. TECHNIQUE: Imaging Protocol: CT angiography of the chest was performed using pulmonary embolus jonathan col. Multi planar reconstructions were performed. CONTRAST MATERIAL: Intravenous: Omnipaque 350 Contrast volume: 75 cc COMPARISON: CT CT CHEST WO from 02/12/[address] CHEST WO from 07/11/2023 FINDINGS: CHEST: PULMONARY ARTERIES: There are no intraluminal filling defects to suggest acute pulmonary emboli. LUNGS: In the left lung the previously described infiltrate extending from the hilum out to the later al left upper lobe pleural surface is again noted and appears relatively stable, this correspond to t he main finding on the chest x-ray. Doubtful for neoplasm as this appears relatively stable since .. Suspect prior surgery as there is decreased left hemithoracic volume again noted and changes in the overlying ribs appear stable which are probably postsurgical. No new left lung findings and no pleural effusions. Sub apical scarring in the right upper lobe is also unchanged. Mild increased ma rkings posteriorly in the right lower lobe are unchanged. No right pleural effusion. MEDIASTINUM: No new hilar nor new mediastinal adenopathy. Visualized thyroid unremarkable. CARDIAC: Heart size is upper normal. There is no pericardial effusion.Caliber of the thoracic aorta is within normal limits. There is no significant shift of the interventricular septum. PARTIALLY VISUALIZED UPPERMOST ABDOMEN: No adrenal masses. OSSEOUS: No significant osseous lesions.No fractures.. IMPRESSION: 1. No evidence of acute pulmonary emboli. 2. Stable appearing left lung infiltrate extending from hilum out to the pleural surface and again as sociated with overlying probable postsurgical rib findings and decreased left hemithoracic volume. N o new left lung findings. No pleural effusions. 3. Stable mild benign-appearing increased markings in the right lower lobe. Also no right pleural e ffusion. 4. No hilar nor mediastinal adenopathy. RADIATION DOSE DELIVERED: 53.85mGy.cm Total DLP DATA REPOSITORY: All CT scans at this facility are submitted to the National Radiology Data Registry (NRDR) Dose Index Registry (DIR) with the [employer] (ACR). RADIATION OPTIMIZATION: All CT scans at this facility use at least one of these dose optimization te chniques: automated exposure control; mA and/or kV adjustment per patient size (includes targeted exa ms where dose is matched to clinical indication); or iterative reconstruction.
[2024-03-24 11:46] LABS: Troponin I 9 ng/L (<or=51)
[2024-03-24] MEDS: Omnipaque 350 MG/ML 100 ML BTL 75 ML IJ (12:14)
[2024-03-24] MEDS: Normal Saline - Diluent 50 ML VIAL IJ (12:15)
--- NOTE | 2024-03-24 12:29 | DI.VRAD_ITS ---
PROCEDURE INFORMATION: Exam: CTA Chest With Contrast Exam date and time: 03/24/2024 12:06 PM Age: 88 years old Clinical indication: Other: Chest pain concern for pe TECHNIQUE: Imaging protocol: Computed tomographic angiography of the chest with contrast. Exam focused on the arteries. 3D rendering (Not supervised by radiologist): MIP and/or 3D reconstructed images were created by the technologist. Total images: 1138 Contrast material: OMNIPAQUE 350; Contrast volume: 75 ml; Contrast route: INTRAVENOUS (IV); COMPARISON: CT CHEST PE CTA 08/06/2019 3:23 PM FINDINGS: Pulmonary arteries: Normal. No pulmonary emboli. Aorta: Unremarkable. No aortic aneurysm. No aortic dissection. Other arteries: Mild atherosclerotic disease. Thyroid: Thyroid is within normal limits. Lungs: Bilateral hyperinflation is present. Infiltrative changes noted within the left upper lobe extending from the hilum, this is similar to the prior study. Associated calcifications are noted. Granulomatous calcifications noted within both lungs. Pleural spaces: Apical pleural thickening noted bilaterally. Heart: The heart is not enlarged. Lymph nodes: No mediastinal or axillary lymphadenopathy. Bones/joints: The thoracic spine demonstrates moderate degenerative changes at multiple levels. No osteoblastic or osteolytic lesions. Chronic changes of the lateral aspect of the left 3rd and 4th ribs. Soft tissues: Unremarkable. IMPRESSION: 1. Bilateral hyperinflation is present. 2. Infiltrative changes noted within the left upper lobe extending from the hilum, this is similar to the prior study. Associated calcifications are noted. 3. No mediastinal or axillary lymphadenopathy. 4. No osteoblastic or osteolytic lesions. 5. Chronic changes of the lateral aspect of the left 3rd and 4th ribs. Dictated and Authenticated by: Kenan Steele MD. Ordering:ESTRELLITA Sidhu MD
== END 2024-03-24 13:02 | disposition home or self-care (01) ==
PROVIDERS: Emergency Provider Emergency Medicine; PCP Family Medicine
DX: R06.02 Shortness of breath (principal); Z85.118 Personal history of other malignant neoplasm of bronchus and lung; Z90.2 Acquired absence of lung [part of]; I10 Essential (primary) hypertension; R00.2 Palpitations; Z86.73 Personal history of transient ischemic attack (TIA), and cerebral infarction without residual deficits
CPT/HCPCS: 71275; 80048; 93005; 93308; 99285; 71046; 84484; 85025; 85379; 93010; 99284; J3490

== ENCOUNTER → 2024-04-25 08:31 | Outpatient (BNVA) | payer MEDICARE, OTHER, SELFPAY | PROVIDERS: PCP Family Medicine; Referring Provider Family Medicine; Visit Provider Psychiatry & Neurology Neurology | DX: G31.84 Mild cognitive impairment of uncertain or unknown etiology | CPT/HCPCS: 99214 ==

== ENCOUNTER 2024-05-01 00:38 | Outpatient (CLI) | payer MEDICARE, OTHER, SELFPAY ==
--- NOTE | 2024-05-01 | DI.CT_ITS ---
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 TECHNIQUE: Imaging Protocol: Axial CT angiography was performed with multi-slice acquisition and mu lti-planar and/or 3D reconstructions. CONTRAST MATERIAL: Intravenous: Omnipaque 350 Contrast volume:70 mL COMPARISON: CT CT BRAIN NECK CTA from 11/23/[address] BRAIN CTA from 11/16/2023 FINDINGS: Ventricles and Extra axial spaces: Normal in size and morphology for the patient's age. Hemorrhage: None. Cerebral parenchyma: Mild atrophy. Mild white matter changes consistent with small vessel disease. Midline shift: None. Brainstem/Cerebellum: Normal. Calvarium: Normal. Visualized Paranasal sinuses/Mastoids: Clear. Orbits: Unremarkable. Internal Carotid Arteries: Petrous: Normal. Cavernous: Calcification bilaterally with less than 50 percent stenosis. Cerebral: Normal. Middle Cerebral Arteries: Right: No aneurysm, occlusion or significant stenosis. Left: No occlusion or significant stenosis. Stable 4 by 4.5 millimeter aneurysm at the bifurcation of the M1 and M2 segments. Anterior Cerebral Arteries: Right: No aneurysm, occlusion or significant stenosis. Left: No aneurysm, occlusion or significant stenosis. Posterial Cerebral Arteries: Right: No aneurysm, occlusion or significant stenosis. Left: No aneurysm, occlusion or significant stenosis. Vertebral Arteries: Right: No aneurysm, occlusion or significant stenosis. Left: No aneurysm, occlusion or significant stenosis. Basilar Artery: No aneurysm, occlusion or significant stenosis. IMPRESSION: Stable middle cerebral artery aneurysm. No evidence of new aneurysm. No significant areas of vascular stenosis. Unremarkable head CT. RADIATION DOSE DELIVERED: Total DLP DATA REPOSITORY: All CT scans at this facility are submitted to the National Radiology Data Registry (NRDR) Dose Index Registry (DIR) with the [employer] (ACR). RADIATION OPTIMIZATION: All CT scans at this facility use at least one of these dose optimization te chniques: automated exposure control; mA and/or kV adjustment per patient size (includes targeted exa ms where dose is matched to clinical indication); or iterative reconstruction.
[2024-05-01 14:07] LABS: CREATININE 1.2 mg/dL (0.55-1.02); Estimated GFR 43.81 (mL/min/1.73m2)
[2024-05-01] MEDS: Omnipaque 350 MG/ML 500 ML BTL-Imaging package IJ (14:22)
[2024-05-01] MEDS: Normal Saline - Diluent 50 ML VIAL IJ (14:22)
== END 2024-05-01 00:58 ==
LOC: DI 00:38
PROVIDERS: PCP Family Medicine; Visit Provider Occupational Therapist
DX: I67.1 Cerebral aneurysm, nonruptured (principal)
CPT/HCPCS: 70496; 82565

== ENCOUNTER 2024-05-14 14:41 | Outpatient (REF) | payer MEDICARE, OTHER, SELFPAY | END 2024-05-14 14:42 | disposition home or self-care (01) | LOC: LBN 14:41 | PROVIDERS: PCP Family Medicine; Visit Provider Obstetrics & Gynecology | DX: N89.8 Other specified noninflammatory disorders of vagina (principal) | CPT/HCPCS: 87480; 87510; 87660 ==

== ENCOUNTER 2024-07-10 00:51 | Outpatient (CLI) | payer MEDICARE, OTHER, SELFPAY ==
--- NOTE | 2024-07-10 | DI.CT_ITS ---
Exam(s) CT CHEST WO EXAM: CT CHEST WO CLINICAL HISTORY: Primary malignant neoplasm of bronchus of GABRIEL, C34.12; s/p lt lingulectomy. TECHNIQUE: Imaging protocol: Axial computed tomography images were obtained and coronal and sagittal reformatted images were created and reviewed. Lung Computer Aided Detection (CAD) was utilized. COMPARISON: CT CT ABDOMEN PELVIS W from 08/22/[address] CHEST WO from 07/11/[address] CHEST PE CTA from 03/24/2024 FINDINGS: Tracheobronchial tree: Patent where visualized. Bronchiectatic changes are present particularly in th e left lung. Pulmonary parenchyma: There are calcified granuloma in the lungs. There is again seen bilateral apic al parenchymal scarring. There is diffuse interstitial disease which appears stable. There is stabl e scarring and postsurgical change in the left mid lung with associated bronchiectasis. No acute inf iltrates are seen. Mediastinum and Olimpia: No dominant adenopathy or fluid collection. The esophagus is unremarkable. Thyroid gland: Unremarkable. Pleura: Stable pleural scarring in the left mid lung. No pleural effusion is seen. No pneumothorax is present. Heart: The heart is not dilated. Coronary artery calcifications are present. No pericardial effusion . Aorta: The ascending thoracic aorta measures 3.8 x 3.8 cm. Atherosclerotic calcification is present. Upper abdomen: There is a stable hepatic cyst. Lymph nodes: Within normal limits. Soft tissues: Unremarkable. Bones:Within normal limits for the patient's age. IMPRESSION: 1. Stable appearance of the chest since 03/24/2024. 2. No acute pulmonary process. RADIATION DOSE DELIVERED: 101.34mGy.cm Total DLP 101.34mGy.cm Total DLP DATA REPOSITORY: All CT scans at this facility are submitted to the National Radiology Data Registry (NRDR) Dose Index Registry (DIR) with the [employer] (ACR). RADIATION OPTIMIZATION: All CT scans at this facility use at least one of these dose optimization te chniques: automated exposure control; mA and/or kV adjustment per patient size (includes targeted exa ms where dose is matched to clinical indication); or iterative reconstruction.
== END 2024-07-10 01:11 ==
LOC: DI 00:51
PROVIDERS: PCP Family Medicine; Visit Provider Physician Assistant
DX: C34.12 Malignant neoplasm of upper lobe, left bronchus or lung (principal)
CPT/HCPCS: 71250

== ENCOUNTER → 2024-07-25 12:17 | Outpatient (BNVA) | payer MEDICARE, OTHER, SELFPAY | PROVIDERS: PCP Family Medicine; Visit Provider Psychiatry & Neurology Neurology | DX: R20.2 Paresthesia of skin (principal); Q27.9 Congenital malformation of peripheral vascular system, unspecified; I65.22 Occlusion and stenosis of left carotid artery; I67.1 Cerebral aneurysm, nonruptured; R41.89 Other symptoms and signs involving cognitive functions and awareness; R29.2 Abnormal reflex; M54.2 Cervicalgia; R03.0 Elevated blood-pressure reading, without diagnosis of hypertension; Z85.110 Personal history of malignant carcinoid tumor of bronchus and lung; Z85.828 Personal history of other malignant neoplasm of skin | CPT/HCPCS: 99214 ==

== ENCOUNTER 2024-07-26 11:53 | Outpatient (CLI) | payer MEDICARE, OTHER, SELFPAY ==
--- NOTE | 2024-07-26 11:45 | RT.EKG_ITS ---
APPROVED REPORT Exam: Resting ECG Reason for Exam: irregular heart rhythm Patient Location: O HR:102 bpm ECG Measurements Heart Rate 102 AXIS AZ 132 P 80 QRSd 82 QRS 81 QT 350 T 87 QTc 456 Conclusion Sinus tachycardia...rate> 99 Atrial premature complex...SV complex w/ short R-R interval Anteroseptal infarct, age indeterminate...Q >35mS, T neg, V1-V2
== END 2024-07-26 11:54 | disposition home or self-care (01) ==
LOC: DI.KIM 11:54
PROVIDERS: PCP Family Medicine; Visit Provider Family Medicine
DX: I49.9 Cardiac arrhythmia, unspecified (principal); I47.11 Inappropriate sinus tachycardia, so stated
CPT/HCPCS: 93010

== ENCOUNTER 2024-07-29 03:29 | Outpatient (CLI) | payer MEDICARE, OTHER, SELFPAY ==
[2024-07-29 13:27] LABS: Anion Gap 7.5 mmol/L (3-11); BUN 22 mg/dL (7-18); CO2 29.5 mmol/L (21.0-32.0); Calcium 9.1 mg/dL (8.5-10.1); Chloride 100 mmol/L (98-107); Estimated GFR 54.53 (mL/min/1.73m2); Glucose 162 mg/dL (74-106); Potassium 3.6 mmol/L (3.5-5.1); Sodium 137 mmol/L (136-145)
== END 2024-07-29 03:30 | disposition home or self-care (01) ==
LOC: LBO 03:29
PROVIDERS: PCP Family Medicine; Referring Provider Family Medicine; Visit Provider Family Medicine
DX: I10 Essential (primary) hypertension (principal)
CPT/HCPCS: 36415; 80048

== ENCOUNTER 2024-09-11 02:39 | Outpatient (CLI) | payer MEDICARE, OTHER, SELFPAY ==
[2024-09-11 11:22] LABS: Bilirubin Negative (Negative); Blood Negative (Negative); Clarity Clear (Clear); Glucose Negative (Negative); Ketones Negative (Negative); Leukocyte Esterase Small (Negative); Nitrite Negative (Negative); Specific Gravity 1.015 (1.005-1.025); Urobilinogen 0.2 mg/dL (Up to 0.2)
[2024-09-11 11:29] LABS: Bacteria Few HPF (Negative); C & S Indicated? No; Casts Negative LPF (Negative); Crystals Negative HPF (Negative); Epithelial Cells Moderate HPF (Negative); Mucus Trace (Negative); Other Cells Negative (Negative); RBC 0-2 HPF (0-2)
[2024-09-11 11:54] LABS: C-Reactive Protein < 0.50 mg/dL (<or=0.5)
[2024-09-12 10:22] LABS: Ro60 Ab, IgG <7.0 CU (<20.0); SS-A/Ro, IgG <2.3 CU (<20.0); SS-B (La) Ab, IgG <3.3 CU (<20.0)
[2024-09-12 12:39] LABS: ANA Interpretation Positive (Negative); ANA Titer Pattern 1:320 Homogeneous
== END 2024-09-11 02:40 | disposition home or self-care (01) ==
LOC: LBO 02:39
PROVIDERS: PCP Family Medicine; Visit Provider Family Medicine
DX: R82.998 Other abnormal findings in urine (principal); M35.00 Sjogren syndrome, unspecified
CPT/HCPCS: 36415; 81003; 81015; 86038; 86140; 86235

== ENCOUNTER → 2025-01-22 13:21 | Outpatient (BNVA) | payer MEDICARE, OTHER, SELFPAY | PROVIDERS: PCP Family Medicine; Visit Provider Psychiatry & Neurology Neurology | DX: I65.22 Occlusion and stenosis of left carotid artery (principal); I67.1 Cerebral aneurysm, nonruptured; R29.2 Abnormal reflex; M54.2 Cervicalgia; Q27.9 Congenital malformation of peripheral vascular system, unspecified; R20.2 Paresthesia of skin; R41.89 Other symptoms and signs involving cognitive functions and awareness | CPT/HCPCS: 99214 ==

== ENCOUNTER 2025-02-05 01:24 | Outpatient (CLI) | payer MEDICARE, OTHER, SELFPAY ==
--- NOTE | 2025-02-05 08:15 | DI.CT_ITS ---
Exam(s) CT BRAIN CTA EXAM: CT BRAIN CTA CLINICAL HISTORY: monitoring aneurysm for growth I67.1 CEREBRAL ANEURYSM. TECHNIQUE: Imaging Protocol: Both noninfused and contrast infused CT scans of the brain were performed. IV Contrast Dose =70 cc Axial computed tomography images with coronal and sagittal reformatted images were created and reviewed COMPARISON: CT CT BRAIN CTA from 05/01/2024 FINDINGS: ANTERIOR CIRCULATION: Both internal carotid arteries are again noted be patent in skull base-carotid canals. Circumferential calcification again noted in the intracavernous aspects of both internal carotid arteries but without significant stenosis at these levels. The supraclinoid aspects of the internal carotid arteries are patent. Both A1 segments are patent and there is no aneurysm at the level the anterior communicating artery. Both middle cerebral arteries are patent without significant stenosis. The previously described 4-5 mm nonthrombosed aneurysm at the bifurcation of the M1 and M2 segments of the left MCA is again noted, unchanged in size and configuration. There are no new aneurysms evident. No evidence of vascular malformation.. POSTERIOR CIRCULATION: Basilar artery is formed at the skull base by both vertebral arteries z and basilar artery ascends in the midline with no evidence of stenosis nor dolichoectasia. Distally gives off patent posterior cerebral arteries. There is no aneurysm of the tip of the basilar artery. BRAIN: There are no skull fractures nor fluid in the visualized paranasal sinuses. There is no evidence of intracranial hemorrhage, mass effect, or shift of midline structures. There are no extra-axial fluid collections. The ventricles are not enlarged or shifted and there is no blood within the ventricular system nor within the basal cisterns.There is mild symmetrical periventricular hypodensity consistent with chronic small vessel disease. No evidence of acute infarct. There are no ring enhancing lesions in the brain and there is no abnormal meningeal enhancement, focal or diffuse. 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 No new aneurysms and no evidence of vascular malformation. No significant stenosis of the intracranial vessels. No abnormal ring enhancing intracranial lesions. RADIATION DOSE DELIVERED: 1,885.22mGy.cm Total DLP DATA REPOSITORY: All CT scans at this facility are submitted to the National Radiology Data Registry (NRDR) Dose Index Registry (DIR) with the [employer] (ACR). RADIATION OPTIMIZATION: All CT scans at this facility use at least one of these dose optimization techniques: automated exposure control; mA and/or kV adjustment per patient size (includes targeted exams where dose is matched to clinical indication); or iterative reconstruction.
[2025-02-05 12:15] LABS: Estimated GFR 48.33 (mL/min/1.73m2)
[2025-02-05] MEDS: Omnipaque 350 MG/ML 100 ML BTL IJ (12:42)
[2025-02-05] MEDS: Normal Saline - Diluent 50 ML VIAL IJ (12:42)
[2025-02-05] MEDS: Normal Saline Flush 10 ML SYR IVP (12:42)
== END 2025-02-05 01:44 ==
LOC: DI 01:24
PROVIDERS: PCP Family Medicine; Visit Provider Psychiatry & Neurology Neurology
DX: I67.1 Cerebral aneurysm, nonruptured (principal)
CPT/HCPCS: 70496; 82565; J3490

== ENCOUNTER 2025-02-15 07:05 | Observation (INO) | payer MEDICARE, OTHER, SELFPAY ==
[2025-02-15] VITALS (26 sets, daily range): BP systolic 149–229; BP diastolic 85–147; PULSE 89–110; RESP 14–28; TEMP 35.9–37.1; O2SAT 94–100
--- NOTE | 2025-02-15 07:00 | RT.EKG_ITS ---
APPROVED REPORT Exam: Resting ECG Reason for Exam: SOB Patient Location: E HR:108 bpm ECG Measurements Heart Rate 108 AXIS WA 146 P 77 QRSd 80 QRS 85 QT 353 T 58 QTc 473 Conclusion Sinus tachycardia...rate> 99 Probable left atrial enlargement...P >50mS, <-0.10mV V1 Consider anteroseptal infarct...Q >30mS, dimin R, V1-V2 No STEMI
[2025-02-15] MEDS: Albuterol/Ipratropium 3 ML UPD VIAL UPD (07:23)
[2025-02-15 07:27] LABS: Abs Immature Grans 0.02 10^3/uL (0.0-0.06); HCT 41.1 % (36.0-46.0); HGB 13.4 g/dL (11.2-15.7); Immature Grans % 0.3 %; MCH 28.8 pg (27.0-33.0); MCHC 32.6 % (32.0-36.0); MCV 88 fL (80-95); MPV 10.3 fL (8.0-11.0); Platelet Count 206 10^3/uL (130-400); RBC 4.65 10^6/uL (3.93-5.22); RDW 12.3 % (11.7-14.6); RDW-SD 39.5 fL; WBC 7.00 10^3/uL (4.4-10.8)
[2025-02-15] MEDS: cloNIDine 0.1 MG TAB PO (07:41)
--- NOTE | 2025-02-15 07:45 | DI.CT_ITS ---
Exam(s) CT CHEST PE CTA EXAM: CT CHEST PE CTA CLINICAL HISTORY: dyspnea, hx of lung CA. TECHNIQUE: Imaging Protocol: Axial CT angiography was performed with multi- slice acquisition and multi-planar and/or 3D reconstructions. Lung Computer Aided Detection (CAD) was utilized. CONTRAST MATERIAL: Intravenous: Omnipaque 350 contrast volume:60 mL COMPARISON: CT CT CHEST PE CTA from 03/24/[address] CHEST WO from 07/10/2024 FINDINGS: Tracheobronchial tree: Patent where visualized. Pulmonary parenchyma: There is pulmonary fibrosis present. The opacity in the left mid lung extending from the hilum to the periphery of the lung is unchanged. There is resultant traction bronchiectasis present. There are no new infiltrates seen within the lungs. Pulmonary Arteries: No evidence of filling defect to suggest pulmonary emboli. Mediastinum and Olimpia: No dominant adenopathy or fluid collection. The esophagus is unremarkable. Visualized thyroid gland: Unremarkable. Pleura: No effusion or pneumothorax. Heart: The heart is not dilated. Coronary artery calcifications are present. No pericardial effusion. Aorta: Thoracic aorta non-dilated. No evidence of dissection. Atherosclerotic calcification is present. Upper abdomen: Unremarkable. Soft tissues: Unremarkable. Bones: Within normal limits for the patient's age. IMPRESSION: 1. No evidence of pulmonary embolism, thoracic aortic dissection or aneurysm. 2. Stable scarring in the left lung. 3. The predominantly peripheral interstitial process in the lungs is stable compared to the prior examination and is likely chronic. 4. There are no new infiltrate seen in the lungs. 5. The preliminary [facility] report was reviewed. RADIATION DOSE DELIVERED: 43.26mGy.cm Total DLP DATA REPOSITORY: All CT scans at this facility are submitted to the National Radiology Data Registry (NRDR) Dose Index Registry (DIR) with the [employer] (ACR). RADIATION OPTIMIZATION: All CT scans at this facility use at least one of these dose optimization techniques: automated exposure control; mA and/or kV adjustment per patient size (includes targeted exams where dose is matched to clinical indication); or iterative reconstruction.
[2025-02-15 07:46] LABS: ALT 26 U/L (14-59); AST 31 U/L (15-37); Albumin 3.9 g/dL (3.4-5.0); Alkaline Phosphatase 69 U/L (46-116); Anion Gap 7.8 mmol/L (3-11); BUN 14 mg/dL (7-18); Bilirubin, Total 1.4 mg/dL (0.2-1.0); CO2 30.2 mmol/L (21.0-32.0); Calcium 9.3 mg/dL (8.5-10.1); Chloride 97 mmol/L (98-107); Glucose 129 mg/dL (74-106); Magnesium 1.6 mg/dL (1.8-2.4); Potassium 3.7 mmol/L (3.5-5.1); Sodium 135 mmol/L (136-145); Total Protein 8.1 g/dL (6.4-8.2); Troponin I 11 ng/L (<or=51)
[2025-02-15 07:57] LABS: Glucose Negative (Negative)
[2025-02-15 08:05] LABS: C & S Indicated? No; RBC 0-2 HPF (0-2)
[2025-02-15 08:17] LABS: COVID-19 PCR Negative (Negative); RSV PCR Negative (Negative)
[2025-02-15] MEDS: Normal Saline - Diluent 50 ML VIAL IJ (08:17)
[2025-02-15] MEDS: Normal Saline Flush 10 ML SYR IVP ×2 (08:17→19:50)
[2025-02-15] MEDS: Omnipaque 350 MG/ML 100 ML BTL IJ (08:17)
[2025-02-15 08:39] LABS: Troponin I 12 ng/L (<or=51)
--- NOTE | 2025-02-15 08:39 | ED.GENADUL_ITS ---
Discharge Plan Disposition Patient Disposition: Admit to [facility] Discharge Details Clinical Impression: Pneumonia, Sepsis Primary Care Provider: Lele Cannon ED Provider: Nik Headley Home Meds and New Rx's Prescriptions: No Action ascorbic acid (vitamin C) 1,000 mg tablet 1 g PO DAILY Biotene Moisturizing Mouth [place],Non-Aerosol 1 applic mucous membrane QID PRN (Reason: dry mouth) 30 Days Qty: 44.3 2RF B Complex Plus Vitamin C [id number] mg capsule 1 cap PO DAILY Rx Instructions: give with food (meal/snack) omeprazole 20 mg capsule,delayed release(DR/EC) 20 mg PO DAILY Qty: 90 3RF atorvastatin 10 mg tablet 10 mg PO DAILY Qty: 90 3RF losartan 50 mg tablet 50 mg PO DAILY Qty: 90 3RF meclizine 12.5 mg tablet 12.5 mg PO TID PRN (Reason: dizziness) Qty: 30 0RF albuterol sulfate 90 mcg/actuation HFA aerosol inhaler 2 puff IH Q6H PRN (Reason: shortness of breath or wheezing) Qty: 18 6RF HPI General Date/Time Provider Initiated Documentation: 02/15/25 07:20 . HPI Narrative: MDM/Narrative: 89-year-old female past med history of hypertension lung cancer in remission, presents for acute dyspnea x 2 to 3 days. Patient denies any other infectious etiology, known history of asthma but denies any significant improvement following DuoNebs. Exam shows no adventitious breath sounds, however patient is significantly hypertensive, tachypneic with elevated heart rate. Differential: Pneumonia: Will obtain chest x-ray blood work to evaluate Pneumothorax: Will obtain chest x-ray to evaluate ACS: Will obtain EKG, troponins x 2, although suspect this is less likely given lack of chest pain. PE: Will consider, given history of malignancy and advanced age. Although patient is not hypoxic she is tachypneic at this time will likely obtain CAT scan unless other more likely etiology is diagnosed Hypertensive emergency: Doubt, no rales to suggest acute pulmonary edema, however given patient is taking her p.o. medications at home, will attempt blood pressure control save as any effect on her symptoms at this time. ED course: Patient notes minimal improvement following DuoNeb application. Unable to obtain portable chest x-ray due to technology issues with diagnostic imaging. As such we we will obtain CAT scan to rule out PE as well as assess for other pulmonary pathology. Lab results are fairly unremarkable no leukocytosis, no troponin elevation no significant metabolic derangements. CT imaging is read by V rad as left upper lobe pneumonia. Plan of care discussed the patient she is concerned as she lives alone and is otherwise rather frail, patient would likely benefit for treatment of pneumonia as inpatient, will treat with ceftriaxone, azithromycin and 1 L fluids. Case discussed with Dr. Garzon the hospitalist who agrees for admission. Clinical impression: Pneumonia Sepsis Disposition: Admission [facility] HPI: 89-year-old female with past medical history of lung cancer status post right lobectomy and in remission, hypertension, presents for evaluation of dyspnea. Patient endorses 2 to 3-day history of dyspnea worse with exertion but also present while resting. Denies any associated fever, cough, leg swelling, chest pain or any other new or concerning symptoms. ROS: Negative besides as mentioned above Exam: Gen: A&O NAD HEENT: NCAT, EOMI, not icteric. External ears normal. No rhinorrhea. Moist mucous membranes. Neck: Supple, full range of motion, no observable masses, No meningeal sign. Lungs: No Respiratory distress. CV: RRR, no edema. Abdomen: Soft, nondistended, No rebound tenderness. MSK: No joint swelling, no redness. Skin: No rashes, petechiae, lesions. Normal color per patient. Neuro: Normal Gait, Grossly intact. Psych: Appropriate for situation. Rhythm: Sinus tachycardia Rate: 108 Speculator: Normal axis Intervals: Normal intervals Other findings: Submillimeter depressions in lead V4 V5, otherwise no significant ST or T wave variation to suggest acute ischemia. Labs: [] Radiology: [] Related Data Home Medications Medication Instructions Recorded Confirmed vitamin B comp and C no.3 15 mg-10 1 cap PO DAILY 07/2925 mg-50 mg-5 mg-300 mg capsule (B Complex Plus Vitamin C) ascorbic acid (vitamin C) 1,000 mg 1 g PO DAILY 02/15/25 tablet atorvastatin 10 mg tablet 10 mg PO DAILY #90 tabs 03/1202/15/25 omeprazole 20 mg capsule,delayed 20 mg PO DAILY #90 ca ps 04/08/24 02/15/25 release saliva stimulant comb. no.3 1 applic mucous membrane Q ID PRN 08/16/24 02/15/25 (Biotene Moisturizing Mouth dry mouth 30 days #44.3 mL mucosal spray) losartan 50 mg tablet 50 mg PO DAILY #90 tabs 0502/15/25 meclizine 12.5 mg tablet 12.5 mg PO TID PRN dizziness #30 11/25/24 02/15/25 tabs albuterol sulfate 90 mcg/actuation 2 puff inhalation Q 6H PRN 11/26/24 02/15/25 aerosol inhaler shortness of breath or wheez ing #18 grams Previous Rx's Medication Instructions Recorded atorvastatin 10 mg tablet 10 mg PO DAILY #90 tabs 12 omeprazole 20 mg capsule,delayed 20 mg PO DAILY #90 ca ps 04/08/24 release saliva stimulant comb. no.3 1 applic mucous membrane Q ID PRN 08/16/24 (Biotene Moisturizing Mouth dry mouth 30 days #44.3 mL mucosal spray) losartan 50 mg tablet 50 mg PO DAILY #90 tabs 08/09 meclizine 12.5 mg tablet 12.5 mg PO TID PRN dizziness #30 11/25/24 tabs albuterol sulfate 90 mcg/actuation 2 puff inhalation Q 6H PRN 11/26/24 aerosol inhaler shortness of breath or wheez ing #18 grams Allergies Allergy/AdvReac Type Severity Reaction Status Date / Time amlodipine AdvReac Intermediate Edema in Verified 02/15/25 07:14 ankles General Stated Complaint: SOB FARNAZ: 2 Course Vital Signs Vital signs: Vital Signs Temperature 36.6 C 02/15/25 07:04 Pulse 106 H 02/15/25 07:04 Respiratory Rate 24 02/15/25 07:04 Blood Pressure 222/135 H 02/15/25 07:04 Pulse Oximetry 98 02/15/25 07:04 Temperature 36.6 C 02/15/25 07:04 Temperature Source Oral 02/15/25 07:04 Pulse 103 H 02/15/25 08:16 Pulse 104 H 02/15/25 08:10 Respiratory Rate 23 02/15/25 08:16 Blood Pressure 209/112 H 02/15/25 08:16 Blood Pressure Mean 144 02/15/25 08:16 Pulse Oximetry 94 02/15/25 08:16 Oxygen Delivery Method Room Air 02/15/25 08:16 Oxygen Flow Rate 0 02/15/25 08:16 Pain Level 0 02/15/25 07:04 Lab/Test Results Lab/Test Results: Laboratory Tests Range/Units 02/15/25 02/15/25 02/15/25 07:20 07:20 07:20 WBC (4.4-10.8) 10^3/uL 7.00 RBC (3.93-5.22) 10^6/uL 4.65 Hgb (11.2-15.7) g/dL 13.4 Hct (36.0-46.0) % 41.1 MCV (80-95) fL 88 MCH (27.0-33.0) pg 28.8 MCHC (32.0-36.0) % 32.6 RDW (11.7-14.6) % 12.3 Plt Count (130-400) 10^3/uL 206 MPV (8.0-11.0) fL 10.3 Immature Gran % % 0.3 Neutrophils % % 68.6 Lymphocytes % % 24.7 Monocytes % % 5.6 Eosinophils % % 0.4 Basophils % % 0.4 Nucleated RBC % (0.0-0.3) % 0.0 Absolute Neutrophils (1.2-6.7) 10^3/uL 4.80 Absolute Lymphocytes (1.2-3.4) 10^3/uL 1.73 Absolute Monocytes (0.1-0.8) 10^3/uL 0.39 Absolute Eosinophils (0.0-0.7) 10^3/uL 0.03 Absolute Basophils (0.0-0.2) 10^3/uL 0.03 VBG Lactate (<or=2.0) mmol/L 1.5 Sodium (136-145) mmol/L 135 L Potassium (3.5-5.1) mmol/L 3.7 Chloride (98-107) mmol/L 97 L Carbon Dioxide (21.0-32.0) mmol/L 30.2 Anion Gap (3-11) mmol/L 7.8 BUN (7-18) mg/dL 14 Creatinine (0.55-1.02) mg/dL 0.9 Est GFR (CKD-EPI 2020) (mL/min/1.73m2) 61.49 Glucose (74-106) mg/dL 129 H Calcium (8.5-10.1) mg/dL 9.3 Magnesium (1.8-2.4) mg/dL 1.6 L Cancelled Total Bilirubin (0.2-1.0) mg/dL 1.4 H AST (15-37) U/L 31 ALT (14-59) U/L 26 Alkaline Phosphatase (46-116) U/L 69 Troponin I (<or=51) ng/L 11 Cancelled Total Protein (6.4-8.2) g/dL 8.1 Albumin (3.4-5.0) g/dL 3.9 Urine Color (Yellow) Urine Clarity (Clear) Urine pH (5-8) Ur Specific Tripp (1.005-1.025) Urine Protein (Neg-Trace) mg/dL Urine Ketones (Negative) mg/dL Urine Blood (Negative) Urine Nitrite (Negative) Urine Bilirubin (Negative) Urine Urobilinogen (Up to 0.2) mg/dL Ur Leukocyte Esterase (Negative) Urine RBC (0-2) HPF Urine WBC (0-5) HPF Ur Epithelial Cells (Negative) HPF Urine Crystals (Negative) HPF Urine Bacteria (Negative) HPF Urine Casts (Negative) LPF Urine Mucus (Negative) Urine Other (Negative) Ur Culture Indicated? Urine Glucose (Negative) mg/dL COVID-19 Source SARS-CoV-2 (PCR) (Negative) Influenza Type A (PCR) (Negative) Influenza Type B (PCR) (Negative) RSV (PCR) (Negative) Range/Units 02/15/25 02/15/25 07:28 07:35 WBC (4.4-10.8) 10^3/uL RBC (3.93-5.22) 10^6/uL Hgb (11.2-15.7) g/dL Hct (36.0-46.0) % MCV (80-95) fL MCH (27.0-33.0) pg MCHC (32.0-36.0) % RDW (11.7-14.6) % Plt Count (130-400) 10^3/uL MPV (8.0-11.0) fL Immature Gran % % Neutrophils % % Lymphocytes % % Monocytes % % Eosinophils % % Basophils % % Nucleated RBC % (0.0-0.3) % Absolute Neutrophils (1.2-6.7) 10^3/uL Absolute Lymphocytes (1.2-3.4) 10^3/uL Absolute Monocytes (0.1-0.8) 10^3/uL Absolute Eosinophils (0.0-0.7) 10^3/uL Absolute Basophils (0.0-0.2) 10^3/uL VBG Lactate (<or=2.0) mmol/L Sodium (136-145) mmol/L Potassium (3.5-5.1) mmol/L Chloride (98-107) mmol/L Carbon Dioxide (21.0-32.0) mmol/L Anion Gap (3-11) mmol/L BUN (7-18) mg/dL Creatinine (0.55-1.02) mg/dL Est GFR (CKD-EPI 2020) (mL/min/1.73m2) Glucose (74-106) mg/dL Calcium (8.5-10.1) mg/dL Magnesium (1.8-2.4) mg/dL Total Bilirubin (0.2-1.0) mg/dL AST (15-37) U/L ALT (14-59) U/L Alkaline Phosphatase (46-116) U/L Troponin I (<or=51) ng/L Total Protein (6.4-8.2) g/dL Albumin (3.4-5.0) g/dL Urine Color (Yellow) Yellow Urine Clarity (Clear) Clear Urine pH (5-8) 7.5 Ur Specific Tripp (1.005-1.025) 1.020 Urine Protein (Neg-Trace) mg/dL >=300 H Urine Ketones (Negative) mg/dL Negative Urine Blood (Negative) Trace-intact H Urine Nitrite (Negative) Negative Urine Bilirubin (Negative) Negative Urine Urobilinogen (Up to 0.2) mg/dL 0.2 Ur Leukocyte Esterase (Negative) Trace H Urine RBC (0-2) HPF 0-2 Urine WBC (0-5) HPF 5-10 Ur Epithelial Cells (Negative) HPF Few Urine Crystals (Negative) HPF Negative Urine Bacteria (Negative) HPF Negative Urine Casts (Negative) LPF 3-5 Hyaline Urine Mucus (Negative) Trace Urine Other (Negative) Few Renal Ur Culture Indicated? No Urine Glucose (Negative) mg/dL Negative COVID-19 Source Nasopharynx SARS-CoV-2 (PCR) (Negative) Negative Influenza Type A (PCR) (Negative) Negative Influenza Type B (PCR) (Negative) Negative RSV (PCR) (Negative) Negative Medical Decision Making Quality:SDOH Health Related Social Needs: Health related social needs daily activities Health related social needs details none PFSH All Active Problems (Updated 02/15/25 @ 10:34 by Nik Headley MD) Sepsis (Acute) Pneumonia (Acute) Sicca syndrome (Acute) Foamy urine (Acute) Xerostomia (Acute) Actinic keratoses (Acute) Excessive cerumen in both ear canals (Acute) Acute bronchitis (Acute) Vaginal discharge (Acute) Reactive airway disease (Acute) Cerumen impaction (Acute) Actinic keratosis (Acute) History of epistaxis (Acute) History of sun-damaged skin (Acute) Seborrheic keratoses (Acute) Carotid stenosis, right (Acute) Abdominal pain (Acute) Cerumen impaction (Acute) Diverticulosis (Acute) Neck pain (Acute) Babinski reflex (Acute) 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, s/p segmentectomy Pulmonary nodule (Chronic 03/07/17) Hyperlipidemia (Chronic) Chronic GERD (Chronic) Non-small cell cancer of left lung (Chronic) ([facility] report 05/28/18) Stage 1a adenocarcinoma of the left upper lobe. Possible left upper lobe lung local recurrent adenocarcinoma original diagnosis in November 2014 as stage Ia disease resected in [place]. (Meghan ulrich MD) Actinic keratoses (Acute) Polyp of colon (Acute 03/07/17) Neoplasm of unspecified behavior of bone, soft tissue, and skin (Acute) Dr Shah L lateral neck-shave excision 02/18/19 Dysfunction of both eustachian tubes (Acute) Basal cell carcinoma of neck (Acute) 03/11/19 Dr Shah Skin tag (Acute) Pain with urination (Acute) Burning with urination (Acute) Cough (Acute) Eczema craquele (Acute) 05/20/20 Derm [facility] [place] 07/15/[address] [facility] Xerosis cutis (Acute) Epistaxis (Acute) 09/04/20 Tetracaine and Silver Nitrate application for control of bleeding by ENT. 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 (Acute) [facility] [place] Dizziness (Acute) Right arm numbness (Acute) Transient ischemic attack (TIA) (Acute) Hypertension (Chronic) Paresthesia of right arm and leg (Acute) Vascular malformation (Acute) Carotid stenosis, left (Acute) Aneurysm of middle cerebral artery (Acute) Found incidentally on TIA work up 06/2022 Essential hypertension (Acute) Abnormal weight loss (Acute) Mild cognitive impairment (Acute) Medical History Anemia (03/07/17) History of basal cell carcinoma Dr Pablo Krueger murray Surgical History Cholecystectomy (~2007) Appendectomy (~1969) (L)Lingulectomy(Segmentectomy) (11/11/14) Family History Mother Stroke Father Stroke Sister Diabetes Social History Smoking/Tobacco Use Status: Former Tobacco Use Tobacco: How many years used: 50 Smoking risk assessment performed?: Yes Alcohol Intake: never Drug use: Never Substance use type: does not use Counseling provided: other (N/A) Adopted: No Caregiver/Support person: No Foster care: No Household members: none Housing: house Number of Children: 0 number of grandchildren: 0 Communication Needs: Hard of Hearing Education Level: high school current occupation: retired Pets and animals: No Sexually active: No Do you think of yourself as: straight/heterosexual Current gender identity: female What is your relationship status?: How often do you talk on the phone with friends or family?: twice per week How often do you get together with friends or relatives?: decline to answer How often do you attend congregational or anabaptism services?: decline to answer Do you belong to any clubs or organized social groups?: yes Panel score (0-1 are the most socially isolated patients): 1 Frequency: 3-4 times per week Special luis needs: No Seatbelt use: always Helmet use: Yes (Declined to answer) Drive intox or ride w/intox inventory associate and driver: No Working smoke detector in home: Yes Fire extinguisher in home: Yes Carbon monox detector in home: Yes Do you feel safe at home: Yes Do you feel safe in your relationship?: Yes
--- NOTE | 2025-02-15 08:52 | DI.[facility]AD_ITS ---
PROCEDURE INFORMATION: Exam: CTA Chest With Contrast Exam date and time: 02/15/2025 8:25 AM Age: 89 years old Clinical indication: Dyspnea; History of lung cancer TECHNIQUE: Imaging protocol: Computed tomographic angiography of the chest with contrast. Exam focused on the arteries. 3D rendering (Not supervised by radiologist): MIP and/or 3D reconstructed images were created by the technologist. Contrast material: OMNIPAQUE 350; Contrast volume: 60 ml; Contrast route: INTRAVENOUS (IV); COMPARISON: CT CHEST PE CTA 03/24/2024 12:06 PM FINDINGS: Limitations: Mild motion artifact. Pulmonary arteries: No pulmonary embolus appreciated. Aorta: Atherosclerotic changes in the aorta and its branches. Lungs: Emphysematous changes in the lungs. Biapical scarring. Extensive consolidation in the left upper lobe. Reticulonodular densities and subcentimeter nodules in both lungs. Pleural spaces: Small left pleural effusion versus pleural thickening. Heart: No pericardial effusion. Lymph nodes: No acute abnormality seen. Gallbladder and biliary ducts: Cholecystectomy. Bones/joints: No acute pertinent abnormality seen. Soft tissues: No acute pertinent abnormality seen. IMPRESSION: 1. Left upper lobe consolidation most consistent with pneumonia. Cannot exclude postobstructive pneumonia related to neoplasm. Follow-up advised. 2. Reticulonodular and nodular densities in both lungs. Consider neoplastic, infectious, inflammatory etiologies. Follow-up if clinically warranted. 3. Additional findings as above. Dictated and Authenticated by: Joleen Tinoco MD. Orderin Kayode Zaragoza MD
[2025-02-15] MEDS: cefTRIAXone 2 GM/50 ML BAG IVPB (09:52)
[2025-02-15] MEDS: AZITHROMYCIN 500 MG in Normal Saline 250 ML 250 MG IVPB (10:44)
--- NOTE | 2025-02-15 11:02 | HPE_ITS ---
Date of service: 02/15/25 Time of Service: 11:02 Assessment and Plan Assessment and plan (1) Sepsis: Status: Acute Assessment and plan: Sepsis criteria met with tachycardia and tachypnea with source of infection most likely pneumonia as per chest imaging report Blood cultures pending Initiated on ceftriaxone and azithromycin will continue and narrow antibiotic as per cultures Labs in a.m. (2) Pneumonia: Status: Acute Assessment and plan: As above As needed and scheduled nebs Cough and deep breathing No indication at this time to complete sputum cultures, the patient lives alone without sick contact Maintain sat 92 and above (3) Hypertension: Status: Chronic Assessment and plan: Continue home medicine regimen (4) GERD (gastroesophageal reflux disease): Status: Chronic Assessment and plan: Continue home PPI (5) Hyperlipidemia: Status: Chronic Assessment and plan: Continue home statin therapy (6) On deep vein thrombosis (DVT) prophylaxis: Status: Acute Assessment and plan: On Lovenox Discussed with History of Present Illness History of Present Illness Chief Complaint: Shortness of breath Narrative: This 89 years old female patient with a past medical history of diverticulosis, remote nicotine dependence, NSC lung cancer treated with surgery and radiation 2018, HLD, GERD, anemia presented today to the ED with complaints of shortness of breath X 2 days and worsening despite inhalers. On presentation the patient was afebrile normotensive tachycardic and tachypneic w/o hypoxia. The patient reported worsening sob, chills, no new dizziness The patient denied fever, chest pain, cough , sick contact, n v d constipation, dysuria, history of [place], ED workup was positive for chest CT showing left upper lobe pneumonia and the patient was initiated on IV azithromycin and ceftriaxone. CODE STATUS confirmed: DNR/DNI Review of Systems All systems reviewed & are unremarkable except as noted in HPI and below PFSH All Active Problems (Updated 02/15/25 @ 17:00 by Dennise Wilson APRN) GERD (gastroesophageal reflux disease) (Chronic) On deep vein thrombosis (DVT) prophylaxis (Acute) Sepsis (Acute) Pneumonia (Acute) Sicca syndrome (Acute) Foamy urine (Acute) Xerostomia (Acute) Actinic keratoses (Acute) Excessive cerumen in both ear canals (Acute) Acute bronchitis (Acute) Vaginal discharge (Acute) Reactive airway disease (Acute) Cerumen impaction (Acute) Actinic keratosis (Acute) History of epistaxis (Acute) History of sun-damaged skin (Acute) Seborrheic keratoses (Acute) Carotid stenosis, right (Acute) Abdominal pain (Acute) Cerumen impaction (Acute) Diverticulosis (Acute) Neck pain (Acute) Babinski reflex (Acute) 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, s/p segmentectomy Pulmonary nodule (Chronic 03/07/17) Hyperlipidemia (Chronic) Chronic GERD (Chronic) Non-small cell cancer of left lung (Chronic) [place] Stage 1a adenocarcinoma of the left upper lobe. Possible left upper lobe lung local recurrent adenocarcinoma original diagnosis in November 2014 as stage Ia disease resected in [place]. (Meghan Schwartz MD) Actinic keratoses (Acute) Polyp of colon (Acute 03/07/17) Neoplasm of unspecified behavior of bone, soft tissue, and skin (Acute) Dr Pablo Krueger lateral neck-shave excision 02/18/19 Dysfunction of both eustachian tubes (Acute) Basal cell carcinoma of neck (Acute) 03/11/19 Dr Shah Skin tag (Acute) Pain with urination (Acute) Burning with urination (Acute) Cough (Acute) Eczema craquele (Acute) 05/20/[address] [facility] [place] 07/15/20 Dr [place] [facility]erosis cutis (Acute) Epistaxis (Acute) 09/04/20 Tetracaine and Silver Nitrate application for control of bleeding by ENT. 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 (Acute) [facility] [place] Dizziness (Acute) Right arm numbness (Acute) Transient ischemic attack (TIA) (Acute) Hypertension (Chronic) Paresthesia of right arm and leg (Acute) Vascular malformation (Acute) Carotid stenosis, left (Acute) Aneurysm of middle cerebral artery (Acute) Found incidentally on TIA work up 06/2022 Essential hypertension (Acute) Abnormal weight loss (Acute) Mild cognitive impairment (Acute) Medical History Anemia (03/07/17) History of basal cell carcinoma Dr Pablo Krueger taoist Surgical History Cholecystectomy (~2007) Appendectomy (~1969) (L)Lingulectomy(Segmentectomy) (11/11/14) Family History Mother Stroke Father Stroke Sister Diabetes Social History Smoking/Tobacco Use Status: Former Tobacco Use Tobacco: How many years used: 50 Smoking risk assessment performed?: Yes Alcohol Intake: never Drug use: Never Substance use type: does not use Counseling provided: other (N/A) Adopted: No Caregiver/Support person: No Foster care: No Household members: none Housing: house Number of Children: 0 number of grandchildren: 0 Communication Needs: Hard of Hearing Education Level: high school current occupation: retired Pets and animals: No Sexually active: No Do you think of yourself as: straight/heterosexual Current gender identity: female What is your relationship status?: How often do you talk on the phone with friends or family?: twice per week How often do you get together with friends or relatives?: decline to answer How often do you attend uatsdin or jew services?: decline to answer Do you belong to any clubs or organized social groups?: yes Panel score (0-1 are the most socially isolated patients): 1 Frequency: 3-4 times per week Special luis needs: No Seatbelt use: always Helmet use: Yes (Declined to answer) Drive intox 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 Working smoke detector in home: Yes Fire extinguisher in home: Yes Carbon monox detector in home: Yes Do you feel safe at home: Yes Do you feel safe in your relationship?: Yes Meds Allergies and Home Medications Allergies Allergy/AdvReac Type Severity Reaction Status Date / Time amlodipine AdvReac Intermediate Edema in Verified 02/15/25 07:14 ankles Home Medications Medication Instructions Recorded Confirmed Type vitamin B comp and C no.3 15 mg-10 1 cap PO DAILY 07/2902/15/25 History mg-50 mg-5 mg-300 mg capsule (B Complex Plus Vitamin C) ascorbic acid (vitamin C) 1,000 mg 1 g PO DAILY 02/15/25 History tablet atorvastatin 10 mg tablet 10 mg PO DAILY #90 tabs 03/1202/15/25 Rx omeprazole 20 mg capsule,delayed 20 mg PO DAILY #90 ca ps 04/08/24 02/15/25 Rx release saliva stimulant comb. no.3 1 applic mucous membrane Q ID PRN 08/16/24 02/15/25 Rx (Biotene Moisturizing Mouth dry mouth 30 days #44.3 mL mucosal spray) losartan 50 mg tablet 50 mg PO DAILY #90 tabs 08/0902/15/25 Rx meclizine 12.5 mg tablet 12.5 mg PO TID PRN dizziness #30 11/25/24 02/15/25 Rx tabs albuterol sulfate 90 mcg/actuation 2 puff inhalation Q 6H PRN 11/26/24 02/15/25 Rx aerosol inhaler shortness of breath or wheez ing #18 grams Exam Narrative Exam Narrative: 89 years old female sitting at the edge of bed without acute distress appears neurologically intact no focal deficit, nonicteric sclera, no JVD,S1-S2 no murmur heart is regular, lungs are clear bilaterally and speaks in full sentences, abdomen is nondistended soft nontender, CVA tenderness Results Labs 02/15/25 07:20 02/15/25 07:20 Labs: Laboratory Results - last 24 hr 02/15/25 02/15/25 02/15/25 07:20 07:20 07:20 WBC 7.00 RBC 4.65 Hgb 13.4 Hct 41.1 MCV 88 MCH 28.8 MCHC 32.6 RDW 12.3 Plt Count 206 MPV 10.3 Immature Gran % 0.3 Neutrophils % 68.6 Lymphocytes % 24.7 Monocytes % 5.6 Eosinophils % 0.4 Basophils % 0.4 Nucleated RBC % 0.0 Absolute Neutrophils 4.80 Absolute Lymphocytes 1.73 Absolute Monocytes 0.39 Absolute Eosinophils 0.03 Absolute Basophils 0.03 VBG Lactate 1.5 Sodium 135 L Potassium 3.7 Chloride 97 L Carbon Dioxide 30.2 Anion Gap 7.8 BUN 14 Creatinine 0.9 Est GFR (CKD-EPI 2020) 61.49 Glucose 129 H Calcium 9.3 Magnesium 1.6 L Cancelled Total Bilirubin 1.4 H AST 31 ALT 26 Alkaline Phosphatase 69 Troponin I 11 Cancelled Total Protein 8.1 Albumin 3.9 Urine Color Urine Clarity Urine pH Ur Specific [place] Urine Protein Urine Ketones Urine Blood Urine Nitrite Urine Bilirubin Urine Urobilinogen Ur Leukocyte Esterase Urine RBC Urine WBC Ur Epithelial Cells Urine Crystals Urine Bacteria Urine Casts Urine Mucus Urine Other Ur Culture Indicated? Urine Glucose COVID-19 Source SARS-CoV-2 (PCR) Influenza Type A (PCR) Influenza Type B (PCR) RSV (PCR) 02/15/25 02/15/25 02/15/25 07:28 07:35 08:10 WBC RBC Hgb Hct MCV MCH MCHC RDW Plt Count MPV Immature Gran % Neutrophils % Lymphocytes % Monocytes % Eosinophils % Basophils % Nucleated RBC % Absolute Neutrophils Absolute Lymphocytes Absolute Monocytes Absolute Eosinophils Absolute Basophils VBG Lactate Sodium Potassium Chloride Carbon Dioxide Anion Gap BUN Creatinine Est GFR (CKD-EPI 2020) Glucose Calcium Magnesium Total Bilirubin AST ALT Alkaline Phosphatase Troponin I 12 Total Protein Albumin Urine Color Yellow Urine Clarity Clear Urine pH 7.5 Ur Specific [place] 1.020 Urine Protein >=300 H Urine Ketones Negative Urine Blood Trace-intact H Urine Nitrite Negative Urine Bilirubin Negative Urine Urobilinogen 0.2 Ur Leukocyte Esterase Trace H Urine RBC 0-2 Urine WBC 5-10 Ur Epithelial Cells Few Urine Crystals Negative Urine Bacteria Negative Urine Casts 3-5 Hyaline Urine Mucus Trace Urine Other Few Renal Ur Culture Indicated? No Urine Glucose Negative COVID-19 Source Nasopharynx SARS-CoV-2 (PCR) Negative Influenza Type A (PCR) Negative Influenza Type B (PCR) Negative RSV (PCR) Negative Last Vital Signs Temp 36.6 C 02/15/25 09:13 Pulse 97 H 02/15/25 10:45 Resp 19 02/15/25 10:45 BP 166/88 H 02/15/25 10:45 Pulse Ox 96 02/15/25 10:45 Time Spent Time spent with Patient: >75 minutes Time was spent: preparing to see the patient(eg.review tests), obtaining and/or reviewing separately otained hiistory, ordering medications,tests, procedures, referring, communicating with other health customer care coordinator, indepentently interpreting results, counseling the patient, care coordination and other
--- NOTE | 2025-02-15 13:09 | PHA.REVIEW2 ---
Pharmacy Admission Review Admission Clinical Review Admission Pharmacy Review: Sepsis (Acute) Pneumonia (Acute) amlodipine Adverse Reaction (Intermediate, Verified 02/15/25 07:14) Edema in ankles Resuscitation Status Full Code Height 5 ft 4 in Weight 52.9 kg Pharmacy Admission Review Renal Dosing Renal Dosing: BUN 14 mg/dL (7-18) 02/15/25 07:20 Creatinine 0.9 mg/dL (0.55-1.02) 02/15/25 07:20 Medications needing adjustments: Reviewed (CrCl 32.47 mL/min) List of meds needing interventions: Current medications are okay Anticoagulation Anticoagulation: Hgb 13.4 g/dL (11.2-15.7) 02/15/25 07:20 Hct 41.1 % (36.0-46.0) 02/15/25 07:20 Plt Count 206 10^3/uL (130-400) 02/15/25 07:20 Creatinine 0.9 mg/dL (0.55-1.02) 02/15/25 07:20 DVT Prophylaxis: Reviewed Medications: Enoxaparin (40mg daily) Relevant Labs Relevant Labs: Sodium 135 mmol/L (136-145) L 02/15/25 07:20 Potassium 3.7 mmol/L (3.5-5.1) 02/15/25 07:20 Chloride 97 mmol/L (98-107) L 02/15/25 07:20 Magnesium 1.6 mg/dL (1.8-2.4) L 02/15/25 07:20 Magnesium Cancelled 02/15/25 07:20 Electrolytes, C-Reactive P, ESR: Reviewed Cardiac Review Cardiac Review: Troponin I 12 ng/L (<or=51) 02/15/25 08:10 Blood Pressure : Heart Rate 166/88 : 92 1127 Blood Pressure : Heart Rate 166/88 : 97 1045 Blood Pressure : Heart Rate 178/93 : 105 0913 Blood Pressure : Heart Rate 213/97 : 103 0851 Blood Pressure : Heart Rate 214/107 : 104 0816 Blood Pressure : Heart Rate 225/108 : 102 0800 Blood Pressure : Heart Rate 216/147 : 96 0746 Blood Pressure : Heart Rate 229/106 : 100 0731 Blood Pressure : Heart Rate 222/135 : 107 0716 Blood Pressure : Heart Rate 222/135 : 107 0709 BP, HR, EF%: Reviewed List meds needing interventions: Has order for losartan 50mg daily QTc Review QTc: Reviewed (EKG report pending) IV to PO Switch IV Medications: Reviewed (azithromycin and ceftriaxone) Home Meds Home Med List reviewed: Reviewed Relevent Home Meds Not ordered & why?: albuterol (PRN) Current Meds Current Medication Order Review: Reviewed Pharmacy Antibiotic Review Relevant Labs: WBC 7.00 10^3/uL (4.4-10.8) 02/15/25 07:20 Temperature 35.9 C Temperature 36.6 C Temperature 36.6 C Pharmacy Antibiotic Activity: C/S review and Reviewed, no change Comments: Patient is on ceftriaxone and azithromycin, day 1, for sepsis/PNA. Blood cultures pending
--- NOTE | 2025-02-15 16:06 | W.PC.ACHO ---
Registration Status: ADM VICENTE Primary Language: Preferred Language: Grenadian ED Information & Data Chief Complaint SOB 02/15/25 09:13 Chief Complaint SOB 02/15/25 08:43 Triage Note increasing SOB since 02/15/25 07:04 yesterday. hx lung cancer with removal of tumor. found to be hypertensive and tachy by EMS. did take morning meds. denies fever. no appetite but is eating. Medical / Surgical History (Last Reviewed 01/22/25 @ 13:24 by Priya Dc MD) Anemia (03/07/17) History of basal cell carcinoma (Last Reviewed 01/22/25 @ 13:24 by Priya Dc MD) Cholecystectomy (~2007) Appendectomy (~1969) (L)Lingulectomy(Segmentectomy) (11/11/14) Most Recent Vital Signs Temperature 36.4 C L 02/15/25 15:26 Temperature Source Temporal Artery Scan 02/15/25 15:26 Pulse 97 H 02/15/25 15:26 Pulse 104 H 02/15/25 08:10 Respiratory Rate 17 02/15/25 15:26 Respiratory Effort Short of Breath 02/15/25 14:36 Respiratory Depth Normal 02/15/25 14:36 Respiratory Pattern Normal 02/15/25 14:36 Blood Pressure 149/89 H 02/15/25 15:26 Blood Pressure Mean 109 02/15/25 15:26 Pulse Oximetry 95 02/15/25 15:26 Oxygen Delivery Method Room Air 02/15/25 15:26 Oxygen Flow Rate 0 02/15/25 15:26 Pain Level 0 02/15/25 15:26 Comment RN notified of high BP 02/15/25 08:51 Allergies amlodipine Adverse Reaction (Intermediate, Verified 02/15/25 07:14) Edema in ankles IV IV Catheter Type [Left Forearm Saline Lock ] IV Catheter Gauge [Left 20 Forearm] Diet Orders Category Date Time Status Heart Healthy Eating [DIET] Nutrition 02/15/25 Lunch Active Diagnostics 02/15/25 02/15/25 02/15/25 Range/Units 08:10 07:35 07:28 WBC (4.4-10.8) 10^3/uL RBC (3.93-5.22) 10^6/uL Hgb (11.2-15.7) g/dL Hct (36.0-46.0) % MCV (80-95) fL MCH (27.0-33.0) pg MCHC (32.0-36.0) % RDW (11.7-14.6) % Plt Count (130-400) 10^3/uL MPV (8.0-11.0) fL Immature Gran % % Neutrophils % % Lymphocytes % % Monocytes % % Eosinophils % % Basophils % % Nucleated RBC % (0.0-0.3) % Absolute Neutrophils (1.2-6.7) 10^3/uL Absolute Lymphocytes (1.2-3.4) 10^3/uL Absolute Monocytes (0.1-0.8) 10^3/uL Absolute Eosinophils (0.0-0.7) 10^3/uL Absolute Basophils (0.0-0.2) 10^3/uL VBG Lactate (<or=2.0) mmol/L Sodium (136-145) mmol/L Potassium (3.5-5.1) mmol/L Chloride (98-107) mmol/L Carbon Dioxide (21.0-32.0) mmol/L Anion Gap (3-11) mmol/L BUN (7-18) mg/dL Creatinine (0.55-1.02) mg/dL Est GFR (CKD-EPI 2020) (mL/min/1.73m2) Glucose (74-106) mg/dL Calcium (8.5-10.1) mg/dL Magnesium (1.8-2.4) mg/dL Total Bilirubin (0.2-1.0) mg/dL AST (15-37) U/L ALT (14-59) U/L Alkaline Phosphatase (46-116) U/L Troponin I 12 (<or=51) ng/L Total Protein (6.4-8.2) g/dL Albumin (3.4-5.0) g/dL Urine Color Yellow (Yellow) Urine Clarity Clear (Clear) Urine pH 7.5 (5-8) Ur Specific [place] 1.020 (1.005-1.025) Urine Protein >=300 H (Neg-Trace) mg/dL Urine Ketones Negative (Negative) mg/dL Urine Blood Trace-intact H (Negative) Urine Nitrite Negative (Negative) Urine Bilirubin Negative (Negative) Urine Urobilinogen 0.2 (Up to 0.2) mg/dL Ur Leukocyte Esterase Trace H (Negative) Urine RBC 0-2 (0-2) HPF Urine WBC 5-10 (0-5) HPF Ur Epithelial Cells Few (Negative) HPF Urine Crystals Negative (Negative) HPF Urine Bacteria Negative (Negative) HPF Urine Casts 3-5 Hyaline (Negative) LPF Urine Mucus Trace (Negative) Urine Other Few Renal (Negative) Ur Culture Indicated? No Urine Glucose Negative (Negative) mg/dL COVID-19 Source Nasopharynx SARS-CoV-2 (PCR) Negative (Negative) Influenza Type A (PCR) Negative (Negative) Influenza Type B (PCR) Negative (Negative) RSV (PCR) Negative (Negative) 02/15/25 02/15/25 02/15/25 Range/Units 07:20 07:20 07:20 WBC 7.00 (4.4-10.8) 10^3/uL RBC 4.65 (3.93-5.22) 10^6/uL Hgb 13.4 (11.2-15.7) g/dL Hct 41.1 (36.0-46.0) % MCV 88 (80-95) fL MCH 28.8 (27.0-33.0) pg MCHC 32.6 (32.0-36.0) % RDW 12.3 (11.7-14.6) % Plt Count 206 (130-400) 10^3/uL MPV 10.3 (8.0-11.0) fL Immature Gran % 0.3 % Neutrophils % 68.6 % Lymphocytes % 24.7 % Monocytes % 5.6 % Eosinophils % 0.4 % Basophils % 0.4 % Nucleated RBC % 0.0 (0.0-0.3) % Absolute Neutrophils 4.80 (1.2-6.7) 10^3/uL Absolute Lymphocytes 1.73 (1.2-3.4) 10^3/uL Absolute Monocytes 0.39 (0.1-0.8) 10^3/uL Absolute Eosinophils 0.03 (0.0-0.7) 10^3/uL Absolute Basophils 0.03 (0.0-0.2) 10^3/uL VBG Lactate 1.5 (<or=2.0) mmol/L Sodium 135 L (136-145) mmol/L Potassium 3.7 (3.5-5.1) mmol/L Chloride 97 L (98-107) mmol/L Carbon Dioxide 30.2 (21.0-32.0) mmol/L Anion Gap 7.8 (3-11) mmol/L BUN 14 (7-18) mg/dL Creatinine 0.9 (0.55-1.02) mg/dL Est GFR (CKD-EPI 2020) 61.49 (mL/min/1.73m2) Glucose 129 H (74-106) mg/dL Calcium 9.3 (8.5-10.1) mg/dL Magnesium Cancelled 1.6 L (1.8-2.4) mg/dL Total Bilirubin 1.4 H (0.2-1.0) mg/dL AST 31 (15-37) U/L ALT 26 (14-59) U/L Alkaline Phosphatase 69 (46-116) U/L Troponin I Cancelled 11 (<or=51) ng/L Total Protein 8.1 (6.4-8.2) g/dL Albumin 3.9 (3.4-5.0) g/dL Urine Color (Yellow) Urine Clarity (Clear) Urine pH (5-8) Ur Specific [place] (1.005-1.025) Urine Protein (Neg-Trace) mg/dL Urine Ketones (Negative) mg/dL Urine Blood (Negative) Urine Nitrite (Negative) Urine Bilirubin (Negative) Urine Urobilinogen (Up to 0.2) mg/dL Ur Leukocyte Esterase (Negative) Urine RBC (0-2) HPF Urine WBC (0-5) HPF Ur Epithelial Cells (Negative) HPF Urine Crystals (Negative) HPF Urine Bacteria (Negative) HPF Urine Casts (Negative) LPF Urine Mucus (Negative) Urine Other (Negative) Ur Culture Indicated? Urine Glucose (Negative) mg/dL COVID-19 Source SARS-CoV-2 (PCR) (Negative) Influenza Type A (PCR) (Negative) Influenza Type B (PCR) (Negative) RSV (PCR) (Negative) 02/15/25 10:11 Blood Culture - Pending Blood 02/15/25 10:04 Blood Culture - Pending Blood Intake and Output - 24 Hour Total 02/15/25 07:00 thru 02/15/25 15:03 Intake Total 660 Balance 660 Weight 52.9 kg Intake: IV 300 Oral 360 Other: Urine Appearance Clear Stool Size Moderate Stool Characteristics Soft Formed Falls Risk Assessment History of Falls No History 02/15/25 14:36 Contributing Factors No Factors 02/15/25 14:36 Ambulatory Aids Independent 02/15/25 14:36 Tubes/Lines W/no contributing factors 02/15/25 14:36 Gait Evaluation No gait disturbance 02/15/25 14:36 Cognition No cognitive impairment 02/15/25 14:36 Fall Total Score 10 02/15/25 14:36 Level of Risk Standard/Low Risk 02/15/25 14:36 Problems (Last Reviewed 01/22/25 @ 13:24 by Priya Dc MD) Sepsis (Acute) Pneumonia (Acute) Attestation Statement: By documenting the first initial, last name, and credentials of the reporting nurse below, both parties acknowledge that all relevant information regarding the patient handoff has been communicated, and that all questions have been addressed to ensure continuity and safety of care. Additional Patient Information/Comments: Report Received From: SOB has increased over the past several days, decreased appetite, 166/88, 106HR, 36.6C, 24 RR, 97 % RA. Natacha RN
[2025-02-15] MEDS: Atorvastatin 10 MG TAB PO (22:45)
[2025-02-16] VITALS (10 sets, daily range): BP systolic 126–198; BP diastolic 39–111; PULSE 85–103; RESP 16–18; TEMP 36–37.1; O2SAT 93–98
[2025-02-16 06:30] LABS: Abs Immature Grans 0.02 10^3/uL (0.0-0.06); HCT 37.6 % (36.0-46.0); HGB 12.8 g/dL (11.2-15.7); Immature Grans % 0.3 %; MCH 29.9 pg (27.0-33.0); MCHC 34.0 % (32.0-36.0); MCV 88 fL (80-95); MPV 11.2 fL (8.0-11.0); Platelet Count 153 10^3/uL (130-400); RBC 4.28 10^6/uL (3.93-5.22); RDW 12.4 % (11.7-14.6); RDW-SD 39.7 fL; WBC 5.92 10^3/uL (4.4-10.8)
[2025-02-16 06:41] LABS: Anion Gap 7.7 mmol/L (3-11); BUN 16 mg/dL (7-18); CO2 30.3 mmol/L (21.0-32.0); Calcium 8.9 mg/dL (8.5-10.1); Chloride 99 mmol/L (98-107); Glucose 97 mg/dL (74-106); Potassium 3.4 mmol/L (3.5-5.1); Sodium 137 mmol/L (136-145)
[2025-02-16] MEDS: Omeprazole 20 MG CAPCR PO (07:19)
[2025-02-16] MEDS: Losartan 50 MG TAB PO (07:33)
[2025-02-16] MEDS: Vitamins B Comp w/C TAB 1 TAB PO (07:33)
[2025-02-16] MEDS: Ascorbic Acid 500 MG TAB 1000 MG PO (07:33)
[2025-02-16] MEDS: cefTRIAXone 2 GM/50 ML BAG IVPB (08:51)
[2025-02-16] MEDS: Normal Saline Flush 10 ML SYR IVP ×5 (09:28→20:49)
[2025-02-16] MEDS: AZITHROMYCIN 250 MG in Normal Saline 250 ML IVPB (09:28)
--- NOTE | 2025-02-16 09:32 | INITIAL_ITS ---
Date of service: 02/16/25 Time of Service: 09:32 Care Management Initial Assmt Initial Assessment Reason for Hospitalization: Sepsis, PNA Functional Status/Living Situation Patient Presentation: Qing was lying in bed and awake when CM met with her. She presented to the ED for acute dyspnea. Per report, Qing experienced symptoms consistent with a possible panic or anxiety attack. She requested chamomile tea, noting that it helps to calm her. Qing was sitting up in a chair when CM met with her. She was very pleasant and engaged easily in conversation. Qing shared that she lives alone in [facility]. She has no children of her own but has stepchildren, step-grandchildren, and nieces who live locally. While she does not see her stepchildren often, her grandchildren frequently assist by picking up groceries and checking in to see if she needs anything. Qing reported that she does not currently receive home health services but is agreeable to initiating them upon discharge. CM requested a PT consult. Qing stated that she is independent at baseline and manages most of her daily activities; however, she noted increasing difficulty doing laundry, as her washer and dryer are located in the basement. She is agreeable to submitting a [place] on Aging referral for options counseling to explore available community supports. Qing shared that she drives on “good days” and often picks up her prescriptions when mail delivery from [employer] is unavailable. CM also requested a palliative care consult to provide additional community-based support and assist with ongoing symptom management and care planning. This patient has no known advanced directives. CM will continue to follow. 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 ) Instrumental Activities of Daily Living (ADLs): Independent Activities/Hobbies/SocialSupport: Qing enjoys square dancing, music shows and is an avid [employer] music fan. Medications Medication Management: No Issues/Barriers identified Physical Functioning/Mobility Assistive Device: none Advance Directives Advance Directives: Do you have an Advance Directive: N , 13:01 AD On File at [facility]: N 12/11/24, 13:01 Date Asked 02/15/25 02/15/25, 07:20 AD Date Reviewed COLST On File at [facility] COLST Date Scanned Code Status Resuscitation Status DNR/DNI Portal Pt does not currently have a portal and education provided: Yes Insurance Coverage/Financial Issues Insurance: Medicare Part A & B - [id number] [facility] - [id number] Care Team Visit Care Team Role Provider Type Lynne House, ZAIRE NURSE PRACTITIONER Lele Cannon, Primary Care Provider OSTEOPATHIC DOCTOR Nik Headley MD Emergency Provider [facility] STAFF PHYSICIAN Jeet Garzon MD Admit Provider [facility] STAFF PHYSICIAN Attending Provider Discharge Potential Discharge Needs: PT Evaluation and PCP F/U Appt Anticipated Barriers to Discharge: None Identified Patient/Family Education Needs: Review discharge instructions, discuss Ask Me Three Transportation: Private vehicle Plan: Anticipate Qing will be discharged home once medically cleared. No new services are indicated at this time. It is recommended she follow up with her community providers and discharge plan of care. She will transport via private vehicle by family. CM will follow. Social Determinants of Health Screening Social Determinants of health last assessed in clinic: 02/16/25 Will the Patient Participate in the Screening?: Yes Do you worry about having a steady place to live?: no Problems where you live: no known problems In the past 12 months, have you had to go without electric, gas, oil or water in your home?: no 1. Within the past 12 months, we worried whether our food would run out before we got money to buy more.: Never true 2. Within the past 12 months, the food we bought just didn't last and we didn't have money to get more.: Never true Has lack of transportation kept you from medical appointments or from doing things needed for daily living?: no Has anyone in your life made you feel unsafe or unsupported?: no How hard is it for you to pay for the very basics like food, housing, medical care, and heating? Would you say it is:: Somewhat hard Do you want help finding or keeping work or a job?: I do not need or want help If for any reason you need help with day-to-day activities such as bathing, preparing meals, shopping, managing finances, etc., do you get the help you need?: I don’t need any help How often do you feel lonely or isolated from those around you?: Sometimes Do you speak a language other than Sami at home?: No Health Related Social Needs Health related social needs: problems related to housing/economic circumstances (Z59.89) and feeling lonely/isolated (Z60.8) Health related social needs details: has had to give up some of her favorite things lately PFSH All Active Problems (Updated 02/15/25 @ 17:00 by Dennise Wilson APRN) GERD (gastroesophageal reflux disease) (Chronic) On deep vein thrombosis (DVT) prophylaxis (Acute) Sepsis (Acute) Pneumonia (Acute) Sicca syndrome (Acute) Foamy urine (Acute) Xerostomia (Acute) Actinic keratoses (Acute) Excessive cerumen in both ear canals (Acute) Acute bronchitis (Acute) Vaginal discharge (Acute) Reactive airway disease (Acute) Cerumen impaction (Acute) Actinic keratosis (Acute) History of epistaxis (Acute) History of sun-damaged skin (Acute) Seborrheic keratoses (Acute) Carotid stenosis, right (Acute) Abdominal pain (Acute) Cerumen impaction (Acute) Diverticulosis (Acute) Neck pain (Acute) Babinski reflex (Acute) 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, s/p segmentectomy Pulmonary nodule (Chronic 03/07/17) Hyperlipidemia (Chronic) Chronic GERD (Chronic) Non-small cell cancer of left lung (Chronic) ([facility] report 05/28/18) Stage 1a adenocarcinoma of the left upper lobe. Possible left upper lobe lung local recurrent adenocarcinoma original diagnosis in November 2014 as stage Ia disease resected in [place]. (Meghan Schwartz MD) Actinic keratoses (Acute) Polyp of colon (Acute 03/07/17) Neoplasm of unspecified behavior of bone, soft tissue, and skin (Acute) Dr Shah L lateral neck-shave excision 02/18/19 Dysfunction of both eustachian tubes (Acute) Basal cell carcinoma of neck (Acute) 03/11/19 Dr Shah Skin tag (Acute) Pain with urination (Acute) Burning with urination (Acute) Cough (Acute) Eczema craquele (Acute) 05/20/20 Derm [facility] 07/15/20 Dr Tenorio [facility] Xerosis cutis (Acute) Epistaxis (Acute) 09/04/20 Tetracaine and Silver Nitrate application for control of bleeding by ENT. 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 (Acute) [facility] Dizziness (Acute) Right arm numbness (Acute) Transient ischemic attack (TIA) (Acute) Hypertension (Chronic) Paresthesia of right arm and leg (Acute) Vascular malformation (Acute) Carotid stenosis, left (Acute) Aneurysm of middle cerebral artery (Acute) Found incidentally on TIA work up 06/2022 Essential hypertension (Acute) Abnormal weight loss (Acute) Mild cognitive impairment (Acute) Medical History Anemia (03/07/17) History of basal cell carcinoma Dr Pablo floresple Surgical History Cholecystectomy (~2007) Appendectomy (~1969) (L)Lingulectomy(Segmentectomy) (11/11/14) Family History Mother Stroke Father Stroke Sister Diabetes Social History Smoking/Tobacco Use Status: Former Tobacco Use Tobacco: How many years used: 50 Smoking risk assessment performed?: Yes Alcohol Intake: never Drug use: Never Substance use type: does not use Counseling provided: other (N/A) Adopted: No Caregiver/Support person: No Foster care: No Household members: none Housing: house Number of Children: 0 number of grandchildren: 0 Communication Needs: Hard of Hearing Education Level: high school current occupation: retired Pets and animals: No Sexually active: No Do you think of yourself as: straight/heterosexual Current gender identity: female What is your relationship status?: How often do you talk on the phone with friends or family?: twice per week How often do you get together with friends or relatives?: decline to answer How often do you attend confucianist or mormon services?: decline to answer Do you belong to any clubs or organized social groups?: yes Panel score (0-1 are the most socially isolated patients): 1 Frequency: 3-4 times per week Special luis needs: No Seatbelt use: always Helmet use: Yes (Declined to answer) Drive intox or ride w/intox transit mixer driver: No Working smoke detector in home: Yes Fire extinguisher in home: Yes Carbon monox detector in home: Yes Do you feel safe at home: Yes Do you feel safe in your relationship?: Yes Readmission Within the Past 30 Days Yes or No: No
--- NOTE | 2025-02-16 11:03 | W.PM.PROGNOT ---
Date of Service Date of service: 02/16/25 Time of Service: 11:02 Assessment and Plan Assessment and plan (1) Sepsis: Status: Resolved Assessment and plan: Sepsis criteria met with tachycardia and tachypnea with source of infection pneumonia Blood cultures negative to date, no oxygen requirements hemodynamically stable, no fever white count normal (2) Pneumonia: Status: Acute Assessment and plan: ceftriaxone/azithromycin day 2/5 add acapella and mucinex duoneb as needed. no oxygen requirements (3) Hypokalemia: Status: Acute Assessment and plan: replete and follow (4) Hypomagnesemia: Status: Acute Assessment and plan: replete and follow (5) Hypertension: Status: Chronic Assessment and plan: Continue home medicine regimen (6) GERD (gastroesophageal reflux disease): Status: Chronic Assessment and plan: Continue home PPI (7) Hyperlipidemia: Status: Chronic Assessment and plan: Continue home statin therapy (8) On deep vein thrombosis (DVT) prophylaxis: Status: Acute Assessment and plan: On Lovenox Discussed with Dr. Basilio Subjective Subjective Patient reports: tolerating liquids well, voiding w/o difficulty, nausea and afebrile; denies vomiting or shortness of breath Interval history since last seen: Feeling very anxious about discharge, reports that she did not sleep well last night. Has been hemodynamically stable and afebrile. White count remains normal she has no oxygen requirement Exam Narrative Exam Narrative: Frail elderly female in in no acute distress faint resting tremor head is atraumatic eyes nonicteric noninjected oral mucosa is moist neck full range of motion no JVD cardiovascular regular rate and rhythm no murmurs appreciated respirations even nonlabored her breath sounds are clear bilaterally no wheezing or coarse breath sounds abdomen is flat moves all extremities no peripheral edema neurologic she is awake alert oriented psychiatric anxious mood and affect Objective Last Vital Signs Temp 36.4 C L 02/16/25 10:46 Pulse 103 H 02/16/25 10:46 Resp 16 02/16/25 10:46 BP 126/72 02/16/25 10:46 Pulse Ox 94 02/16/25 10:46 Laboratory Results - last 24 hr 02/16/25 06:07 WBC 5.92 RBC 4.28 Hgb 12.8 Hct 37.6 MCV 88 MCH 29.9 MCHC 34.0 RDW 12.4 Plt Count 153 MPV 11.2 H Immature Gran % 0.3 Neutrophils % 73.2 Lymphocytes % 19.6 Monocytes % 5.9 Eosinophils % 0.7 Basophils % 0.3 Nucleated RBC % 0.0 Absolute Neutrophils 4.33 Absolute Lymphocytes 1.16 L Absolute Monocytes 0.35 Absolute Eosinophils 0.04 Absolute Basophils 0.02 Sodium 137 Potassium 3.4 L Chloride 99 Carbon Dioxide 30.3 Anion Gap 7.7 BUN 16 Creatinine 0.9 Est GFR (CKD-EPI 2020) 61.49 Glucose 97 Calcium 8.9 Time Spent with Patient Time Spent with Patient: 35-49 minutes Time was spent: preparing to see the patient(eg.review tests), obtaining and/or reviewing separately otained hiistory, ordering medications,tests, procedures, indepentently interpreting results and counseling the patient
[2025-02-16] MEDS: MAGNESIUM SULFATE 1 GM/100 ML BAG IV_INF (14:56)
[2025-02-16] MEDS: Potassium Chloride 20 MEQ TABCR PO ×2 (14:56→20:49)
[2025-02-16] MEDS: guaiFENesin 600 MG TABCR PO (20:49)
[2025-02-16] MEDS: Melatonin 3 MG TAB PO (20:49)
[2025-02-16] MEDS: Atorvastatin 10 MG TAB PO (20:49)
[2025-02-17 05:05] VITALS: BP 174/90; PULSE 90; RESP 16; TEMP 36.4; O2SAT 94
[2025-02-17 06:59] LABS: Anion Gap 10.1 mmol/L (3-11); BUN 19 mg/dL (7-18); CO2 27.9 mmol/L (21.0-32.0); Calcium 9.1 mg/dL (8.5-10.1); Chloride 98 mmol/L (98-107); Glucose 117 mg/dL (74-106); Potassium 3.5 mmol/L (3.5-5.1); Sodium 136 mmol/L (136-145)
[2025-02-17 07:02] LABS: Magnesium 1.9 mg/dL (1.8-2.4)
[2025-02-17 07:33] LABS: Abs Immature Grans 0.02 10^3/uL (0.0-0.06); HCT 40.7 % (36.0-46.0); HGB 13.6 g/dL (11.2-15.7); Immature Grans % 0.3 %; MCH 29.2 pg (27.0-33.0); MCHC 33.4 % (32.0-36.0); MCV 87 fL (80-95); RBC 4.66 10^6/uL (3.93-5.22); RDW 12.5 % (11.7-14.6); RDW-SD 39.5 fL; WBC 6.42 10^3/uL (4.4-10.8)
[2025-02-17 07:40] LABS: RBC Morphology Normal
[2025-02-17] MEDS: Omeprazole 20 MG CAPCR PO (07:46)
[2025-02-17] MEDS: Losartan 50 MG TAB PO (07:46)
[2025-02-17 07:57] VITALS: BP 174/97; PULSE 99; RESP 16; TEMP 36.7; O2SAT 96
[2025-02-17] MEDS: guaiFENesin 600 MG TABCR PO (08:14)
[2025-02-17] MEDS: Vitamins B Comp w/C TAB 1 TAB PO (08:14)
[2025-02-17] MEDS: Potassium Chloride 20 MEQ TABCR PO (08:15)
[2025-02-17] MEDS: Ascorbic Acid 500 MG TAB 1000 MG PO (08:15)
--- NOTE | 2025-02-17 09:34 | PT.INIE ---
PT Notes Visit Reasons: Sepsis, PNA PT Inpatient evaluation Date: 02/17/2025 Referring Doctor: Lynne House NP PT Orders: PT CONSULT: PT evaluation and treatment Precautions: Standard, Activity as tolerated, IV Access L forearm, hard of hearing Patient Profile/Admitting Diagnosis: 89-year-old Female diagnosed with sepsis and pneumonia. Chest CT showed positive signs for pneumonia in upper lobe of the left lung. PMHX: [] Social History/Home Situation: Pt lives alone in a 2-story family home. Pt has 4 steps with Right rail going into her home, and 10-13 stairs with rail leading to the basement. Which she needs access for her laundry. Pt has a performance analyst that takes care of the yard, and step children that brings her groceries Equipment Owned/DME: [employer], and cane Subjective: Pt reported they were a little tired, and they didn’t sleep well. Prior to session pt reported they need to use the bathroom. Post session, pt reported they would like to sit at EOB because she didn’t want to be leaning back. Objective: General Observation: Pt had dyspnea post ambulation without an assistive device. Mental Status: Alert and oriented as to person, place, time, and purpose. Able to pay attention, focus, respond appropriately. Pain: declined to report Vital Signs: Pre ambulation: SPO2 95 on RA, Post ambulation: SPO2 95 on RA ROM: Right Upper Extremity: Shoulder Flexion WFL. Shoulder abduction WFL. Elbow flexion WFL. Wrist flexion WFL. Functional opening and closing of hand WFL. Left Upper Extremity: Shoulder Flexion WFL. Shoulder abduction WFL. Elbow flexion WFL. Wrist flexion WFL. Functional opening and closing of hand WFL. Right Lower Extremity: Hip flexion WFL. Hip abduction WFL. Knee flexion WFL. Ankle dorsiflexion WFL. Ankle plantarflexion WFL. Left Lower Extremity: Hip flexion WFL. Hip abduction WFL. Knee flexion WFL. Ankle dorsiflexion WFL. Ankle plantarflexion WFL. Strength: Right Upper Extremity: Grossly 5/5 Left Upper Extremity: Grossly 5/5 Right Lower Extremity: Hip flexors 3+/5. Hip abductors 4-/5. Knee flexors 3+/5. Knee extensors 4-/5. Ankle dorsiflexors 3/5. Ankle plantarflexors 4-/5. Left Lower Extremity: Hip flexors 3+/5. Hip abductors 4-/5. Knee flexors 3+/5. Knee extensors 4-/5. Ankle dorsiflexors 3/5. Ankle plantarflexors 4-/5. Bed Mobility/Transfers: Rolling with Independently Supine to sit Independently Sit to supine Independently Sit to stand Independently Stand to sit Independently Bed to toilet 15 feet away with supervision Bed to reclining chair with supervision Reclining chair to bed with supervision Gait: Instructed patient with level surface ambulation of 175 feet supervision no assistive device. . Brandy decreased. Step height decreased. Step length decreased. Pt was able to ambulate supervision with no assistive device. However, with no device the pt has excessive medial to lateral sway, and will reach out to the diaz for support Stairs: two six inch steps and three four inch steps supervised with cane step over step Balance: Static Sitting: normal Dynamic Sitting: normal Static Standing: good Dynamic Standing: good Special Tests: Mobility Limitations Standardized Measure [facility] AM-PAC 6 clicks Basic Mobility Inpatient Short Form: Raw Score:23 CMS Score: 11.20% deficit Informed Consent/Education: Patient was instructed in purpose of PT consult and plan of care. Agreeable to proceed with established PT POC to achieve personal goals. Assessment: Pt is independent with all bed mobility activities. Pt was able to ambulate 125 feet supervision without any device. After 125 feet, pt started to develop excessive medial to lateral sway. PT advised the pt to use the hand railing to help with their balance. PT provided a cane to pt to assist with ambulation. Pt excessive medial lateral sway diminished after provided cane. Pt is able to perform ambulation without an assistive device. However, PT recommends ambulation with cane for safety and increase activity tolerance. Post ambulation without a device, pt presented with dyspnea. Post ambulation with a cane, pt had no dyspnea. Pt would benefit from home health physical therapy because of her decreased strength to lower extremities, decreased balance during ambulation without a device, and decreased activity tolerance Patient presents with clinical signs and symptoms consistent with current/admitting diagnoses that have resulted to mobility limitations, gait instability, generalized weakness, and overall ADL decline as demonstrated by the following impairment level findings: 1. Decreased strength to both lower extremities. 2. Impaired standing balance 3. Impaired activity tolerance 4. Shortness of breath with activity Impairments are contributing to the following functional limitations: 1. Decline in transfer skills 2. Difficulty with ambulation without assistive device and physical assistance 3. Increased completion time for mobility ADL performance 4. Increased risk for falls without an assistive device 5. Difficulty with managing stairs alone safely Patient is assessed as a Low complexity based on the following: History: 89-year-old female with past medical history as indicated above Examination: Demonstrable impairment in strength, balance, and mobility level with underlying impairments and functional limitations as exhibited above as well as deficit score of 11.2% utilizing the [facility] Mobility Inpatient Short Form Presentation: evolving Decision Making: Low complexity Goals: Goals X1 week 1. Bed-Chair independent with cane 2. Chair-Bed independent with cane 3. Independent gait on level surface with use of cane for at least 350 feet without report of dyspnea 4. Independent stair negotiation while holding onto side rail for at least 10 steps without report of dyspnea 5. Independent with home exercise program 6. Good static and dynamic standing balance/tolerance Plan of Care/Treatment Plan: 1-2x/day, 7 days/week x 1 week. Plan of care has been reviewed with the STROBOROMA OPERATOR providing the service under Physical Therapy direction. Initiate Physical Therapy intervention for pain management as needed, strengthening, bed mobility, transfers, gait, stairs, balance training, and use of assistive device. DISCHARGE RECOMMENDATIONS: Home with HHPT Treatment: 59156 Pt then ambulated 70 feet employment supervisor with cane. Stairs with cane and rail CGA Functional mobility within room with cane at Supervision to simulate mobility within their home TREATMENT CODE/TIME: 78347, 37183/ 8:50-9:26. 36 total minutes Thank you for the opportunity to participate in the care of this patient. Written by Sanju Garvey DPTS Supervised by: Judy Beard, PT [facility] [place], [place]
[2025-02-17] MEDS: cefTRIAXone 2 GM/50 ML BAG IVPB (09:44)
[2025-02-17] MEDS: Normal Saline Flush 10 ML SYR IVP (09:44)
[2025-02-17] MEDS: AZITHROMYCIN 250 MG in Normal Saline 250 ML IVPB (10:48)
[2025-02-17 11:19] VITALS: BP 128/85; PULSE 104; RESP 16; TEMP 36.5; O2SAT 95
--- NOTE | 2025-02-17 11:50 | W.PALLCONSUL ---
Date of service: 02/17/25 Time of Service: 15:00 History of Present Illness History of Present Illness Chief Complaint: SOB Narrative: Hospital NOtes: Hospital Course: This 81 years old female patient with past medical history of diverticulosis remote nicotine dependence non-small cell lung cancer treated with surgery and radiation in 2018, hyperlipidemia, GERD, anemia presented to the ED on 02/15/2025 with complaints of worsening shortness of breath x 2 days despite home inhalers use. Workup in the ED was positive for left upper lobe pneumonia as per CT initially with concerns for neoplastic changes. The patient was initiated on IV azithromycin and ceftriaxone in the ED. The patient was admitted to the surgical medical floor for sepsis in the setting of left upper lobe pneumonia for ongoing treatment and management. Per the reading as per Dr. Lima, an [facility] radiologist determined that the left lung showed lung scaring and that referral actually process in the lungs were likely chronic and stable when compared to prior examination. Blood cultures were negative at 24 hours with unremarkable lab work-results, now has a productive cough of as small amount clear- greenish sputum. Patient is hemodynamically stable with heart rate in the low 90s to low 100s, afebrile and will be discharged home after 3-day course of IV antibiotics. Interim Hx Consults Consult date: 02/17/25 Requesting physician: Lynne House [facility] All Active Problems (Updated 02/16/25 @ 13:26 by Lynne House, CERTIFIED SUBSTANCE ABUSE COUNSELOR) GERD (gastroesophageal reflux disease) (Chronic) On deep vein thrombosis (DVT) prophylaxis (Acute) Pneumonia (Acute) Sicca syndrome (Acute) Foamy urine (Acute) Xerostomia (Acute) Actinic keratoses (Acute) Excessive cerumen in both ear canals (Acute) Acute bronchitis (Acute) Vaginal discharge (Acute) Reactive airway disease (Acute) Cerumen impaction (Acute) Actinic keratosis (Acute) History of epistaxis (Acute) History of sun-damaged skin (Acute) Seborrheic keratoses (Acute) Carotid stenosis, right (Acute) Abdominal pain (Acute) Cerumen impaction (Acute) Diverticulosis (Acute) Neck pain (Acute) Babinski reflex (Acute) Mild cognitive impairment (Acute) Abnormal weight loss (Acute) Essential hypertension (Acute) Hypokalemia (Acute) Aneurysm of middle cerebral artery (Acute) Found incidentally on TIA work up 06/2022 Carotid stenosis, left (Acute) Vascular malformation (Acute) Paresthesia of right arm and leg (Acute) Hypertension (Chronic) Transient ischemic attack (TIA) (Acute) Right arm numbness (Acute) Hypomagnesemia (Acute) Dizziness (Acute) Chronic pruritic rash in adult (Acute) [facility] [place] White coat syndrome with high blood pressure but without hypertension (Acute) History of basal cell carcinoma (BCC) (Acute) Epistaxis (Acute) 09/04/20 Tetracaine and Silver Nitrate application for control of bleeding by ENT. Xerosis cutis (Acute) Eczema craquele (Acute) 05/20/20 Derm [facility] [place] 07/15/20 Dr Tenorio [facility] Cough (Acute) Burning with urination (Acute) Pain with urination (Acute) Skin tag (Acute) Basal cell carcinoma of neck (Acute) 03/11/19 Dr Shah Dysfunction of both eustachian tubes (Acute) Neoplasm of unspecified behavior of bone, soft tissue, and skin (Acute) Dr Pablo Krueger lateral neck-shave excision 02/18/19 Polyp of colon (Acute 03/07/17) Actinic keratoses (Acute) Non-small cell cancer of left lung (Chronic) ([facility] [place]18) Stage 1a adenocarcinoma of the left upper lobe. Possible left upper lobe lung local recurrent adenocarcinoma original diagnosis in November 2014 as stage Ia disease resected in [place]. (Meghan Schwartz MD) Chronic GERD (Chronic) Hyperlipidemia (Chronic) Pulmonary nodule (Chronic 03/07/17) 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, s/p segmentectomy Medical History Anemia (03/07/17) History of basal cell carcinoma Dr Pablo Krueger religion Surgical History Cholecystectomy (~2007) Appendectomy (~1969) (L)Lingulectomy(Segmentectomy) (11/11/14) Family History Mother Stroke Father Stroke Sister Diabetes Social History Smoking/Tobacco Use Status: Former Tobacco Use Tobacco: How many years used: 50 Smoking risk assessment performed?: Yes Alcohol Intake: never Drug use: Never Substance use type: does not use Counseling provided: other (N/A) Adopted: No Caregiver/Support person: No Foster care: No Household members: none Housing: house Number of Children: 0 number of grandchildren: 0 Communication Needs: Hard of Hearing Education Level: high school current occupation: retired Pets and animals: No Sexually active: No Do you think of yourself as: straight/heterosexual Current gender identity: female What is your relationship status?: How often do you talk on the phone with friends or family?: twice per week How often do you get together with friends or relatives?: decline to answer How often do you attend denominational or jehovah's witness services?: decline to answer Do you belong to any clubs or organized social groups?: yes Panel score (0-1 are the most socially isolated patients): 1 Frequency: 3-4 times per week Special luis needs: No Seatbelt use: always Helmet use: Yes (Declined to answer) Drive intox or ride w/intox deliver driver: No Working smoke detector in home: Yes Fire extinguisher in home: Yes Carbon monox detector in home: Yes Do you feel safe at home: Yes Do you feel safe in your relationship?: Yes Results Last Vital Signs Temp 97.7 F 02/17/25 11:19 Pulse 104 H 02/17/25 11:19 Resp 16 02/17/25 11:19 BP 128/85 02/17/25 11:19 Pulse Ox 95 02/17/25 11:19 Labs 02/17/25 06:30 02/17/25 06:30 Labs: Laboratory Results - last 24 hr 02/17/25 06:30 WBC 6.42 RBC 4.66 Hgb 13.6 Hct 40.7 MCV 87 MCH 29.2 MCHC 33.4 RDW 12.5 Plt Count MPV Immature Gran % 0.3 Neutrophils % 63.1 Lymphocytes % 28.7 Monocytes % 7.0 Eosinophils % 0.6 Basophils % 0.3 Nucleated RBC % 0.0 Absolute Neutrophils 4.05 Absolute Lymphocytes 1.84 Absolute Monocytes 0.45 Absolute Eosinophils 0.04 Absolute Basophils 0.02 RBC Morphology Normal Sodium 136 Potassium 3.5 Chloride 98 Carbon Dioxide 27.9 Anion Gap 10.1 BUN 19 H Creatinine 0.8 Est GFR (CKD-EPI 2020) 70.83 Glucose 117 H Calcium 9.[address] scan - chest: report reviewed (IMPRESSION: 1. No evidence of pulmonary embolism, thoracic aortic dissection or aneurysm. 2. Stable scarring in the left lung. 3. The predominantly peripheral interstitial process in the lungs is stable compared to the prior examination and is likely chronic. 4. There are no new infiltrate seen )
--- NOTE | 2025-02-17 11:55 | DSE_ITS ---
Date of service: 02/17/25 Time of Service: 11:56 DS: Diagnosis Discharge Diagnosis (1) Sepsis: Status: Resolved (2) Pneumonia: Status: Acute (3) Hypokalemia: Status: Acute (4) Hypomagnesemia: Status: Acute (5) Hypertension: Status: Chronic (6) GERD (gastroesophageal reflux disease): Status: Chronic (7) Hyperlipidemia: Status: Chronic (8) On deep vein thrombosis (DVT) prophylaxis: Status: Acute Discharge Plan Disposition Patient Disposition: Home W/Home Health Services Condition: Improving Discharge Details Reason For Visit: Sepsis, PNA Admit Date/Time: 02/15/25 11:01 Admit Provider: Jeet Garzon Attending Provider: Jeet Garzon Primary Care Provider: Lele Cannon [facility] Course Hospital Course: This 81 years old female patient with past medical history of diverticulosis remote nicotine dependence non-small cell lung cancer treated with surgery and radiation in 2018, hyperlipidemia, GERD, anemia presented to the ED on 02/15/2025 with complaints of worsening shortness of breath x 2 days despite home inhalers use. Workup in the ED was positive for left upper lobe pneumonia as per CT initially with concerns for neoplastic changes. The patient was initiated on IV azithromycin and ceftriaxone in the ED. The patient was admitted to the surgical medical floor for sepsis in the setting of left upper lobe pneumonia for ongoing treatment and management. Per the reading as per Dr. Lima, an [facility] radiologist determined that the left lung showed lung scaring and that referral actually process in the lungs were likely chronic and stable when compared to prior examination. Blood cultures were negative at 24 hours with unremarkable lab work-results, now has a productive cough of as small amount clear- greenish sputum. Patient is hemodynamically stable with heart rate in the low 90s to low 100s, afebrile and will be discharged home after 3-day course of IV antibiotics. The patient will follow-up with her primary care practitioner within 7 days of discharge. The patient will benefit from home health physical therapy, occupational therapy, nursing and a medical technologist blood bank. Discussed with Dr Basilio Recommendations for Follow Up Recommended tests to be ordered by follow up provider: Influenza and pneumococcal vaccinations as per guidelines; Pulmonology referral recommended Home Meds and New Rx's Prescriptions: New levalbuterol tartrate 45 mcg/actuation HFA aerosol inhaler 2 inh inhalation Q6H PRN (Reason: shortness of breath or wheezing) Qty: 15 0 RF Rx Instructions: Use instead of the albuterol inhaler to reduce higher heart rate and tachycardia guaifenesin [Mucinex] 600 mg tablet extended release 12hr 600 mg PO BID Qty: 10 0RF Bio-K plus 50 billion cell capsule,delayed release(DR/EC) 1 cap PO DAILY Qty: 5 0RF Continued ascorbic acid (vitamin C) 1,000 mg tablet 1 g PO DAILY Biotene Moisturizing Mouth [place],Non-Aerosol 1 applic mucous membrane QID PRN (Reason: dry mouth) 30 Days Qty: 44.3 2RF B Complex Plus Vitamin C [id number] mg capsule 1 cap PO DAILY Rx Instructions: give with food (meal/snack) omeprazole 20 mg capsule,delayed release(DR/EC) 20 mg PO DAILY Qty: 90 3RF atorvastatin 10 mg tablet 10 mg PO DAILY Qty: 90 3RF losartan 50 mg tablet 50 mg PO DAILY Qty: 90 3RF meclizine 12.5 mg tablet 12.5 mg PO TID PRN (Reason: dizziness) Qty: 30 0RF Held albuterol sulfate 90 mcg/actuation HFA aerosol inhaler 2 puff IH Q6H PRN (Reason: shortness of breath or wheezing) Qty: 18 6RF Hold Instructions: use levalbuterol PRN instead- resume as per PCP Discharge Instructions Stand Alone Forms: Portal Information Referrals: Lele Cannon DO [Primary Care Provider, Medicine] Referral Note: Follow-up within 7 days of discharge Activity:: Activity as Tolerated Equipment/Supplies:: As per FINANCIAL REPRESENTATIVE Diet:: As per FINANCIAL REPRESENTATIVE Discharge Orders Discharge Orders: Discharge Order (Routine); Ordered 02/17/25 Ordered By: Dennise Wilson DS: Summary Time Spent with Patient providing and/or coordinating discharge services: Greater than 30 minutes Status at Discharge Functional status at discharge: independent ambulation Overall status at discharge: patient is progressing back to baseline Mental Status: mental status grossly normal Speech and Movement: speech and movement normal Mood: congruent mood Affect: normal affect Quality:SDOH Health Related Social Needs: Health related social needs house/econ circumstance lo doug/isolated Health related social needs details has had to give up some of her favorite things lately Health related social needs details: has had to give up some of her favorite things lately Exam Narrative Exam Narrative: Frail elderly 89 years old female sitting on the bed without acute distress , no acute neurological focal deficit, nonicteric sclera, no JVD, lungs are clear bilaterally , S1-S2 no murmur heart is regular,abdomen is nondistended soft nontender, moves all 4 ext Psych Mental Status: mental status grossly normal Speech and Movement: speech and movement normal Mood: congruent mood Affect: normal affect DS: Data Vitals/I&O Vitals and I&O: Vital Signs Temperature 36.5 C 02/17/25 11:19 Temperature Source Temporal Artery Scan 02/17/25 11:19 Pulse 104 H 02/17/25 11:19 Pulse 104 H 02/15/25 08:10 Respiratory Rate 16 02/17/25 11:19 Respiratory Effort Short of Breath 02/15/25 14:36 Respiratory Depth Normal 02/15/25 14:36 Respiratory Pattern Normal 02/15/25 14:36 Blood Pressure 128/85 02/17/25 11:19 Blood Pressure Mean 99 02/17/25 11:19 Pulse Oximetry 95 02/17/25 11:19 Oxygen Delivery Method Room Air 02/17/25 11:19 Oxygen Flow Rate 0 02/17/25 11:19 Pain Level 0 02/17/25 11:19 Comment nurse notified about high BP 02/16/25 07:23 Intake & Output 02/16/25 02/16/25 02/17/25 11:59 23:59 11:59 Intake Total 300 / 1000 700 / 1000 Balance 300 / 1000 700 / 1000 Intake: IV 300 / 400 100 / 400 Oral 600 / 600 Other: Urine Color Yellow Pale Yellow Yellow Urine Appearance Clear Clear Cloudy Urine Odor Normal Normal Normal Comment Pt voids an immeasurable amount into the toilet. Pt voids an immeasurable amount into the toilet. Pt voids an immeasurable amount into the toilet. Stool Size Moderate Moderate Moderate Stool Characteristics Formed Formed Soft Brown Liquid Data Completed and Pending Pending Labs at Discharge: 02/15/25 02/15/25 02/15/25 07:20 07:20 07:20 WBC 7.00 RBC 4.65 Hgb 13.4 Hct 41.1 MCV 88 MCH 28.8 MCHC 32.6 RDW 12.3 Plt Count 206 MPV 10.3 Immature Gran % 0.3 Neutrophils % 68.6 Lymphocytes % 24.7 Monocytes % 5.6 Eosinophils % 0.4 Basophils % 0.4 Nucleated RBC % 0.0 Absolute Neutrophils 4.80 Absolute Lymphocytes 1.73 Absolute Monocytes 0.39 Absolute Eosinophils 0.03 Absolute Basophils 0.03 RBC Morphology VBG Lactate 1.5 Sodium 135 L Potassium 3.7 Chloride 97 L Carbon Dioxide 30.2 Anion Gap 7.8 BUN 14 Creatinine 0.9 Est GFR (CKD-EPI 2020) 61.49 Glucose 129 H Calcium 9.3 Magnesium 1.6 L Cancelled Total Bilirubin 1.4 H AST 31 ALT 26 Alkaline Phosphatase 69 Troponin I 11 Cancelled Total Protein 8.1 Albumin 3.9 Urine Color Urine Clarity Urine pH Ur Specific [place] Urine Protein Urine Ketones Urine Blood Urine Nitrite Urine Bilirubin Urine Urobilinogen Ur Leukocyte Esterase Urine RBC Urine WBC Ur Epithelial Cells Urine Crystals Urine Bacteria Urine Casts Urine Mucus Urine Other Ur Culture Indicated? Urine Glucose COVID-19 Source SARS-CoV-2 (PCR) Influenza Type A (PCR) Influenza Type B (PCR) RSV (PCR) 02/15/25 02/15/25 02/15/25 07:28 07:35 08:10 WBC RBC Hgb Hct MCV MCH MCHC RDW Plt Count MPV Immature Gran % Neutrophils % Lymphocytes % Monocytes % Eosinophils % Basophils % Nucleated RBC % Absolute Neutrophils Absolute Lymphocytes Absolute Monocytes Absolute Eosinophils Absolute Basophils RBC Morphology VBG Lactate Sodium Potassium Chloride Carbon Dioxide Anion Gap BUN Creatinine Est GFR (CKD-EPI 2020) Glucose Calcium Magnesium Total Bilirubin AST ALT Alkaline Phosphatase Troponin I 12 Total Protein Albumin Urine Color Yellow Urine Clarity Clear Urine pH 7.5 Ur Specific [place] 1.020 Urine Protein >=300 H Urine Ketones Negative Urine Blood Trace-intact H Urine Nitrite Negative Urine Bilirubin Negative Urine Urobilinogen 0.2 Ur Leukocyte Esterase Trace H Urine RBC 0-2 Urine WBC 5-10 Ur Epithelial Cells Few Urine Crystals Negative Urine Bacteria Negative Urine Casts 3-5 Hyaline Urine Mucus Trace Urine Other Few Renal Ur Culture Indicated? No Urine Glucose Negative COVID-19 Source Nasopharynx SARS-CoV-2 (PCR) Negative Influenza Type A (PCR) Negative Influenza Type B (PCR) Negative RSV (PCR) Negative 02/16/25 02/17/25 06:07 06:30 WBC 5.92 6.42 RBC 4.28 4.66 Hgb 12.8 13.6 Hct 37.6 40.7 MCV 88 87 MCH 29.9 29.2 MCHC 34.0 33.4 RDW 12.4 12.5 Plt Count 153 MPV 11.2 H Immature Gran % 0.3 0.3 Neutrophils % 73.2 63.1 Lymphocytes % 19.6 28.7 Monocytes % 5.9 7.0 Eosinophils % 0.7 0.6 Basophils % 0.3 0.3 Nucleated RBC % 0.0 0.0 Absolute Neutrophils 4.33 4.05 Absolute Lymphocytes 1.16 L 1.84 Absolute Monocytes 0.35 0.45 Absolute Eosinophils 0.04 0.04 Absolute Basophils 0.02 0.02 RBC Morphology Normal VBG Lactate Sodium 137 136 Potassium 3.4 L 3.5 Chloride 99 98 Carbon Dioxide 30.3 27.9 Anion Gap 7.7 10.1 BUN 16 19 H Creatinine 0.9 0.8 Est GFR (CKD-EPI 2020) 61.49 70.83 Glucose 97 117 H Calcium 8.9 9.1 Magnesium 1.9 Total Bilirubin AST ALT Alkaline Phosphatase Troponin I Total Protein Albumin Urine Color Urine Clarity Urine pH Ur Specific [place] Urine Protein Urine Ketones Urine Blood Urine Nitrite Urine Bilirubin Urine Urobilinogen Ur Leukocyte Esterase Urine RBC Urine WBC Ur Epithelial Cells Urine Crystals Urine Bacteria Urine Casts Urine Mucus Urine Other Ur Culture Indicated? Urine Glucose COVID-19 Source SARS-CoV-2 (PCR) Influenza Type A (PCR) Influenza Type B (PCR) RSV (PCR) Preliminary micro results at discharge 02/15/25 10:11 Blood Blood Culture - Preliminary NO GROWTH 24 HOURS 02/15/25 10:04 Blood Blood Culture - Preliminary NO GROWTH 24 HOURS PFSH All Active Problems (Updated 02/16/25 @ 13:26 by Lynne House NP) GERD (gastroesophageal reflux disease) (Chronic) On deep vein thrombosis (DVT) prophylaxis (Acute) Pneumonia (Acute) Sicca syndrome (Acute) Foamy urine (Acute) Xerostomia (Acute) Actinic keratoses (Acute) Excessive cerumen in both ear canals (Acute) Acute bronchitis (Acute) Vaginal discharge (Acute) Reactive airway disease (Acute) Cerumen impaction (Acute) Actinic keratosis (Acute) History of epistaxis (Acute) History of sun-damaged skin (Acute) Seborrheic keratoses (Acute) Carotid stenosis, right (Acute) Abdominal pain (Acute) Cerumen impaction (Acute) Diverticulosis (Acute) Neck pain (Acute) Babinski reflex (Acute) 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, s/p segmentectomy Pulmonary nodule (Chronic 03/07/17) Hyperlipidemia (Chronic) Chronic GERD (Chronic) 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 Possible left upper lobe lung local recurrent adenocarcinoma original diagnosis in November 2014 as stage Ia disease resected in [place]. (Meghan Schwartz MD) Actinic keratoses (Acute) Polyp of colon (Acute 03/07/17) Neoplasm of unspecified behavior of bone, soft tissue, and skin (Acute) Dr Pablo Krueger lateral neck-shave excision 02/18/19 Dysfunction of both eustachian tubes (Acute) Basal cell carcinoma of neck (Acute) 03/11/19 Dr Shah Skin tag (Acute) Pain with urination (Acute) Burning with urination (Acute) Cough (Acute) Eczema craquele (Acute) 05/20/20 Derm [facility] [place] 07/15/20 Dr Tenorio [facility] [place] Xerosis cutis (Acute) Epistaxis (Acute) 09/04/20 Tetracaine and Silver Nitrate application for control of bleeding by ENT. 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 (Acute) [facility] [place] Dizziness (Acute) Hypomagnesemia (Acute) Right arm numbness (Acute) Transient ischemic attack (TIA) (Acute) Hypertension (Chronic) Paresthesia of right arm and leg (Acute) Vascular malformation (Acute) Carotid stenosis, left (Acute) Aneurysm of middle cerebral artery (Acute) Found incidentally on TIA work up 06/2022 Hypokalemia (Acute) Essential hypertension (Acute) Abnormal weight loss (Acute) Mild cognitive impairment (Acute) Medical History Anemia (03/07/17) History of basal cell carcinoma Dr Pablo Krueger religion Surgical History Cholecystectomy (~2007) Appendectomy (~1969) (L)Lingulectomy(Segmentectomy) (11/11/14) Family History Mother Stroke Father Stroke Sister Diabetes Social History Smoking/Tobacco Use Status: Former Tobacco Use Tobacco: How many years used: 50 Smoking risk assessment performed?: Yes Alcohol Intake: never Drug use: Never Substance use type: does not use Counseling provided: other (N/A) Adopted: No Caregiver/Support person: No Foster care: No Household members: none Housing: house Number of Children: 0 number of grandchildren: 0 Communication Needs: Hard of Hearing Education Level: high school current occupation: retired Pets and animals: No Sexually active: No Do you think of yourself as: straight/heterosexual Current gender identity: female What is your relationship status?: How often do you talk on the phone with friends or family?: twice per week How often do you get together with friends or relatives?: decline to answer How often do you attend gnosticism or nondenominational services?: decline to answer Do you belong to any clubs or organized social groups?: yes Panel score (0-1 are the most socially isolated patients): 1 Frequency: 3-4 times per week Special luis needs: No Seatbelt use: always Helmet use: Yes (Declined to answer) Drive intox or ride w/intox delivery truck driver heavy: No Working smoke detector in home: Yes Fire extinguisher in home: Yes Carbon monox detector in home: Yes Do you feel safe at home: Yes Do you feel safe in your relationship?: Yes Time Spent with Patient Time Spent with Patient: >85 minutes Time was spent: preparing to see the patient(eg.review tests), obtaining and/or reviewing separately otained hiistory, ordering medications,tests, procedures, referring, communicating with other health rn intensive care unit, indepentently interpreting results, counseling the patient, care coordination and other
--- NOTE | 2025-02-17 12:35 | PDOC.HHF2F_ITS ---
Date of service: 02/17/25 Time of Service: 12:36 Home Health Referral Home Health Orders Clinical synopsis of why skilled professionals are needed: This 81 years old female patient with past medical history of diverticulosis remote nicotine dependence non-small cell lung cancer treated with surgery and radiation in 2018, hyperlipidemia, GERD, anemia presented to the ED on 02/15/2025 with complaints of worsening shortness of breath x 2 days despite home inhalers use. Workup in the ED was positive for left upper lobe pneumonia as per CT initially with concerns for neoplastic changes. The patient was initiated on IV azithromycin and ceftriaxone in the ED. The patient was admitted to the surgical medical floor for sepsis in the setting of left upper lobe pneumonia for ongoing treatment and management. Per the reading as per Dr. Lima, an [facility] radiologist determined that the left lung showed lung scaring and that referral actually process in the lungs were likely chronic and stable when compared to prior examination. Blood cultures were negative at 24 hours with unremarkable lab work-results, now has a productive cough of as small amount clear- greenish sputum. Patient is hemodynamically stable with heart rate in the low 90s to low 100s, afebrile and will be discharged home after 3-day course of IV antibiotics. The patient will follow-up with her primary care practitioner within 7 days of discharge. The patient will benefit from home health physical therapy, occupational therapy, nursing and a medical assistant internal medicine. Discussed with Dr Basilio Registered Nurse: Check all that apply Instruct on new or changed medication(s)/assess compliance: Ordered Assess for exacerbation of medical condition, instruct patient/caregivers on signs and symptoms to report for early detection: Ordered Physical Therapist: Check all that apply To design/establish home maintenance program: Ordered Occupational Therapist: Evaluate and treat for patient unable to perform ADL/IADL/self-care: Ordered Lime Hide Inspector: Assist with community resources: Ordered Assist with long wall mining machine tender care planning: Ordered Home Bound Status Requires the aid of supportive device (check all that apply): Perico Encounter Date and Reason: I certify that a FTF encounter for this patient was performed on February 17, 2025 and that such encounter was related to the primary reason the patient requires home health services. The encounter was conducted in the following manner: * By me as the certifying physician, LBD TEACHER, PA or * By an inpatient physician, LBD TEACHER or PA during an inpatient stay who communicated findings to me, Certification And Authentication I certify that I composed the above information based on my clinical judgment relating to this patient's medical condition and, if applicable, clinical findings communicated to me by the NPP or inpatient physician who performed the FTF encounter. Name of Provider that will be monitoring home health services: Lele Cannon
--- NOTE | 2025-02-17 14:30 | PDOC.CMDIS ---
Date of service: 02/17/25 Time of Service: 14:34 LACE Index Scoring Tool Questions: Length of Stay (in days): 2 Was the patient admitted via the E.D.?: Yes E.D. 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 A palliative consult was placed to initiate the establishment of care outpatient. It is recommended Qing follow up with her community providers, palliative care, and her discharge plan of care. She will transport via private vehicle. Patient/Family Education Needs: Review of discharge instruction, activity, limitations and plan of care. Discuss ask me three Services Needed at Discharge: Home Health Care Services SDOH Health Related Social Needs: Health related social needs house/econ circumstance lonely/isolated Health related social needs details has had to give up some of her favorite things lately Health related social needs details: has had to give up some of her favorite things lately
== END 2025-02-17 14:00 | disposition home health service (06) ==
LOC: ER 11:11 → MS 11:41
PROVIDERS: Nurse Practitioner Acute Care; Admitting Provider Family Medicine; Emergency Provider General Practice; PCP Family Medicine; Responsible Provider Nurse Practitioner Acute Care; Visit Provider Family Medicine
DX: A41.9 Sepsis, unspecified organism (principal); J18.9 Pneumonia, unspecified organism; E87.6 Hypokalemia; E83.42 Hypomagnesemia; I10 Essential (primary) hypertension; E78.5 Hyperlipidemia, unspecified; K21.9 Gastro-esophageal reflux disease without esophagitis; D64.9 Anemia, unspecified; Z66 Do not resuscitate; Z90.2 Acquired absence of lung [part of]; Z85.118 Personal history of other malignant neoplasm of bronchus and lung; Z87.891 Personal history of nicotine dependence; Z79.899 Other long term (current) drug therapy
CPT/HCPCS: 00123; 36415; 71275; 80048; 80053; 87040; 87637; 93005; 94640; 96365; 96367; 97161; 97530; 99285; 81003; 81015; 83605; 83735; 84484; 85025; 93010; 94667; 94760; 99223; 99232; 99239; G0378; J0456; J0696; J3475; J3490; J7620

== ENCOUNTER 2025-02-20 16:19 | Emergency (ER) | payer MEDICARE, OTHER, SELFPAY ==
[2025-02-20 16:21] VITALS: BP 168/89; PULSE 116; RESP 14; TEMP 36.5; O2SAT 94
[2025-02-20 16:30] VITALS: BP 168/89; PULSE 116; RESP 14; TEMP 36.5; O2SAT 94
--- NOTE | 2025-02-20 16:30 | RT.EKG_ITS ---
APPROVED REPORT Exam: Resting ECG Reason for Exam: SOB Patient Location: E HR:112 bpm ECG Measurements Heart Rate 112 AXIS MO 138 P 69 QRSd 80 QRS 81 QT 327 T 12 QTc 447 Conclusion Sinus tachycardia...rate> 99 Atrial premature complex...SV complex w/ short R-R interval Probable left atrial enlargement...P >50mS, <-0.10mV V1 Consider anteroseptal infarct...Q >30mS, dimin R, V1-V2
--- NOTE | 2025-02-20 16:45 | DI.RAD_ITS ---
Exam(s) XR CHEST 2V PA LATERAL EXAM: XR CHEST 2V PA LATERAL CLINICAL HISTORY: cough, dyspnea TECHNIQUE: 2D digital imaging was performed. Two views. COMPARISON: CR,XR XR CHEST 2V PA LATERAL from 03/24/[address] CHEST PE CTA from 02/15/2025 FINDINGS: HEART: Normal size. Aorta: Not dilated. PULMONARY VASCULATURE: Normal. MEDIASTINUM: Unremarkable. LUNGS: Stable area of scarring in the left upper lobe. Left upper lobe volume loss and suture material. Fibrotic changes. No acute infiltrate or pulmonary edema. PLEURAL SPACE: No pleural effusion or pneumothorax. Apical pleural thickening. BONE:Unremarkable for age. SOFT TISSUES: Unremarkable. IMPRESSION: No acute abnormality. Left upper lobe scarring and postsurgical changes. Pulmonary fibrosis. DATA REPOSITORY: RADIATION DOSE DELIVERED:
--- NOTE | 2025-02-20 16:45 | ED.GENADUL_ITS ---
Discharge Plan Disposition Patient Disposition: Home Condition: Stable Discharge Details Clinical Impression: Shortness of breath, Reactive airway disease Primary Care Provider: Lele Cannon ED Provider: Blade Redman Home Meds and New Rx's Prescriptions: New prednisone 20 mg tablet 60 mg PO DAILY 4 Days Qty: 12 0RF doxycycline hyclate 100 mg tablet 100 mg PO BID Qty: 14 0RF Continued ascorbic acid (vitamin C) 1,000 mg tablet 1 g PO DAILY Biotene Moisturizing Mouth [place],Non-Aerosol 1 applic mucous membrane QID PRN (Reason: dry mouth) 30 Days Qty: 44.3 2RF atorvastatin 10 mg tablet 10 mg PO DAILY Qty: 90 3RF omeprazole 20 mg capsule,delayed release(DR/EC) 20 mg PO DAILY Qty: 90 3RF B Complex Plus Vitamin C [id number] mg capsule 1 cap PO DAILY Rx Instructions: give with food (meal/snack) losartan 50 mg tablet 50 mg PO DAILY Qty: 90 3RF meclizine 12.5 mg tablet 12.5 mg PO TID PRN (Reason: dizziness) Qty: 30 0RF levalbuterol tartrate 45 mcg/actuation HFA aerosol inhaler 2 inh inhalation Q6H PRN (Reason: shortness of breath or wheezing) Qty: 15 0RF Rx Instructions: Use instead of the albuterol inhaler to reduce higher heart rate and tachycardia guaifenesin [Mucinex] 600 mg tablet extended release 12hr 600 mg PO BID Qty: 10 0RF Bio-K plus 50 billion cell capsule,delayed release(DR/EC) 1 cap PO DAILY Qty: 5 0RF No Action albuterol sulfate 90 mcg/actuation HFA aerosol inhaler 2 puff IH Q6H PRN (Reason: shortness of breath or wheezing) Qty: 18 6RF Discharge Instructions Care Plan Goals: Your blood work and x-ray did not show any concerning findings at this time. Take the prednisone and doxycycline as prescribed and continue to use your leave albuterol inhaler as needed. Follow-up with primary care provider especially if you are having lingering symptoms within a week. If you feel significantly more ill, have worsening shortness of breath or high fevers return to the emergency department for reevaluation. Stand Alone Forms: Portal Information HPI General Mode of arrival: ambulatory . Date/Time Provider Initiated Documentation: 02/20/25 16:23 . Limitations to Documentation: no limitations . Information obtained by: patient and family . History of Present Illness 89 year old F presents to the emergency department with the chief complaint of dyspnea, cough, described as moderate, Patient started experiencing this day(s) (2) and it has been intermittent. Rest improves symptom(s), Movement worsens symptoms . Patient notes denies chest pain and fever/chills. Patient did receive the following treatments prior to arrival, none Related Data Home Medications Medication Instructions Recorded Confirmed vitamin B comp and C no.3 15 mg-10 1 cap PO DAILY 07/2902/20/25 mg-50 mg-5 mg-300 mg capsule (B Complex Plus Vitamin C) ascorbic acid (vitamin C) 1,000 mg 1 g PO DAILY 02/20/25 tablet saliva stimulant comb. no.3 1 applic mucous membrane Q ID PRN 08/16/24 02/20/25 (Biotene Moisturizing Mouth dry mouth 30 days #44.3 mL mucosal spray) losartan 50 mg tablet 50 mg PO DAILY #90 tabs 08/0902/20/25 meclizine 12.5 mg tablet 12.5 mg PO TID PRN dizziness #30 11/25/24 02/20/25 tabs albuterol sulfate 90 mcg/actuation 2 puff inhalation Q 6H PRN 11/26/24 02/20/25 aerosol inhaler shortness of breath or wheez ing Held on 02/17/25. #18 grams Instructions: use levalbuterol PRN instead- resume as per PCP L. acidophilus,casei,rhamnosus 50 1 cap PO DAILY #5 ca ps 02/17/25 02/20/25 billion cell capsule,delayed release (Bio-K plus) guaifenesin 600 mg tablet, 600 mg PO BID #10 tabs 02/0802/20/25 extended release 12 hr (Mucinex) levalbuterol tartrate 45 2 inh inhalation Q6H PRN john rtness 02/17/25 02/20/25 mcg/actuation aerosol inhaler of breath or wheezing #1 5 grams atorvastatin 10 mg tablet 10 mg PO DAILY #90 tabs 02/0802/20/25 doxycycline hyclate 100 mg tablet 100 mg PO BID #14 ta bs 02/20/25 omeprazole 20 mg capsule,delayed 20 mg PO DAILY #90 ca ps 02/20/25 02/20/25 release prednisone 20 mg tablet 60 mg (3 x 20 mg) PO DAILY 4 days 02/20/25 #12 tabs Previous Rx's Medication Instructions Recorded saliva stimulant comb. no.3 1 applic mucous membrane Q ID PRN 08/16/24 (Biotene Moisturizing Mouth dry mouth 30 days #44.3 mL mucosal spray) losartan 50 mg tablet 50 mg PO DAILY #90 tabs 08/09 meclizine 12.5 mg tablet 12.5 mg PO TID PRN dizziness #30 11/25/24 tabs albuterol sulfate 90 mcg/actuation 2 puff inhalation Q 6H PRN 11/26/24 aerosol inhaler shortness of breath or wheez ing Held on 02/17/25. #18 grams Instructions: use levalbuterol PRN instead- resume as per PCP L. acidophilus,casei,rhamnosus 50 1 cap PO DAILY #5 ca ps 02/17/25 billion cell capsule,delayed release (Bio-K plus) guaifenesin 600 mg tablet, 600 mg PO BID #10 tabs 02/08 extended release 12 hr (Mucinex) levalbuterol tartrate 45 2 inh inhalation Q6H PRN john rtness 02/17/25 mcg/actuation aerosol inhaler of breath or wheezing #1 5 grams atorvastatin 10 mg tablet 10 mg PO DAILY #90 tabs 02/08 07/02 doxycycline hyclate 100 mg tablet 100 mg PO BID #14 ta bs 02/20/25 omeprazole 20 mg capsule,delayed 20 mg PO DAILY #90 ca ps 02/20/25 release prednisone 20 mg tablet 60 mg (3 x 20 mg) PO DAILY 4 days 02/20/25 #12 tabs Allergies Allergy/AdvReac Type Severity Reaction Status Date / Time amlodipine AdvReac Intermediate Edema in Verified 02/20/25 16:28 ankles General Stated Complaint: SOB FARNAZ: 3 Review of Systems All systems reviewed & are unremarkable except as noted in HPI and below Constitutional Constitutional: Denies chills, Denies fever(s) and Denies weakness Cardiovascular Cardiovascular: Denies chest pain and Reports dyspnea Respiratory Respiratory: Reports cough and Reports dyspnea Gastrointestinal Gastrointestinal: Denies abdominal pain, Denies nausea and Denies vomiting Neurologic Neurologic: Denies weakness Exam Const General: no acute distress Orientation: alert HENMT Head: normal to inspection Ears: external ears normal General nose exam: external nose normal Mouth: moist mucous membranes Eyes General: appearance normal, both eyes and all related structures Neck Neck: normal visual inspection Resp Effort & Inspection: normal respiratory effort and able to speak in complete sentences Auscultation: rhonchi and wheezes Cardio Jugular venous pressure: no JVD Rate: regular rate Skin General skin exam: no rashes or lesions noted Neuro General: patient alert and patient oriented x3 Extrem General: normal to inspection Psych Mental Status: mental status grossly normal Course Vital Signs Vital signs: Vital Signs Temperature 36.5 C 02/20/25 16:21 Pulse 116 H 02/20/25 16:21 Respiratory Rate 14 02/20/25 16:21 Blood Pressure 168/89 H 02/20/25 16:21 Pulse Oximetry 94 02/20/25 16:21 Temperature 36.5 C 02/20/25 16:30 Temperature Source Temporal Artery Scan 02/20/25 16:30 Pulse 116 H 02/20/25 16:30 Respiratory Rate 14 02/20/25 16:30 Blood Pressure 168/89 H 02/20/25 16:30 Blood Pressure Position Sitting 02/20/25 16:30 Pulse Oximetry 94 02/20/25 16:30 Oxygen Delivery Method Room Air 02/20/25 16:30 Oxygen Flow Rate 0 02/20/25 16:30 Pain Level 6 02/20/25 16:30 Medical Decision Making 89-year-old female with a history of hypertension, TIA, hypertension, former smoker and reactive airway disease comes in with shortness of breath and cough. She was recently admitted for exacerbation of her reactive airway disease and question of pneumonia. She was discharged without antibiotics and followed up with her PCP today with continued shortness of breath and cough for the last day so was referred here after getting a breathing treatment in the office. She says she feels better after breathing treatment. Denies any chest pain, fevers, chills, leg swelling or calf tenderness. She had a CTA of her chest to evaluate for PE when she was admitted which did not show any PE. She has wheezing at the apices bilaterally and rhonchi at the bases bilaterally. No JVD, no leg swelling or calf tenderness. I suspect she has underlying COPD and will treat with another DuoNeb IV Solu-Medrol. Will check CBC CMP and troponins. Given she recently had the CTA to evaluate for PE and has no evidence of DVT on exam I doubt PE. No tearing back pain to suggest dissection. Labs and x-ray show no acute findings and on reassessment patient states she feels significantly better requesting discharge. She has apical wheezing bilaterally otherwise clear lung sounds. Given rapid improvement with treatment and reassuring workup I feel this is reasonable. Despite not having an infiltrate I am going to initiate antibiotics given her increased cough with doxycycline. She will follow-up with her PCP especially if not improving and return precautions given. Differential Diagnosis Differential Diagnosis: COPD, pneumonia, NSTEMI Medical Records Medical records reviewed: Yes I reviewed the patient's medical records. Lab Data Lab results reviewed: Yes I reviewed the patient's lab results. ECG Data Attestation: I personally reviewed and interpreted this ECG (s) as follows: Prior ECG tracings: available for review Interpretation: Sinus tachycardia, rate of 112, no STEMI Quality:SDOH Health Related Social Needs: Health related social needs house/econ circumstance lo doug/isolated Health related social needs details has had to give up some of her favorite things lately PFSH All Active Problems (Updated 02/20/25 @ 18:49 by Blade Redman MD) Shortness of breath (Acute) GERD (gastroesophageal reflux disease) (Chronic) Pneumonia (Acute) Sicca syndrome (Acute) Foamy urine (Acute) Xerostomia (Acute) Actinic keratoses (Acute) Excessive cerumen in both ear canals (Acute) Acute bronchitis (Acute) Vaginal discharge (Acute) Reactive airway disease (Acute) Cerumen impaction (Acute) Actinic keratosis (Acute) History of epistaxis (Acute) History of sun-damaged skin (Acute) Seborrheic keratoses (Acute) Carotid stenosis, right (Acute) Abdominal pain (Acute) Cerumen impaction (Acute) Diverticulosis (Acute) Neck pain (Acute) Babinski reflex (Acute) 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, s/p segmentectomy Pulmonary nodule (Chronic 03/07/17) Hyperlipidemia (Chronic) Chronic GERD (Chronic) Non-small cell cancer of left lung (Chronic) ([facility] [place]/28/18) Stage 1a adenocarcinoma of the left upper lobe. Possible left upper lobe lung local recurrent adenocarcinoma original di amairani in November 2014 as stage Ia disease resected in [place]. (Meghan Schwartz MD) Actinic keratoses (Acute) Polyp of colon (Acute 03/07/17) Neoplasm of unspecified behavior of bone, soft tissue, and skin (Acute) Dr Pablo Krueger lateral neck-shave excision 02/18/19 Dysfunction of both eustachian tubes (Acute) Basal cell carcinoma of neck (Acute) 03/11/19 Dr Shah Skin tag (Acute) Pain with urination (Acute) Burning with urination (Acute) Cough (Acute) Eczema craquele (Acute) 05/20/20 Derm [facility] [place] 07/15/20 Dr Tenorio [facility] [place] Xerosis cutis (Acute) Epistaxis (Acute) 09/04/20 Tetracaine and Silver Nitrate application for control of bleeding by ENT. 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 (Acute) [facility] [place] [facility] Dizziness (Acute) Right arm numbness (Acute) Transient ischemic attack (TIA) (Acute) Hypertension (Chronic) Paresthesia of right arm and leg (Acute) Vascular malformation (Acute) Carotid stenosis, left (Acute) Aneurysm of middle cerebral artery (Acute) Found incidentally on TIA work up 06/2022 Essential hypertension (Acute) Abnormal weight loss (Acute) Mild cognitive impairment (Acute) Medical History Anemia (03/07/17) History of basal cell carcinoma Dr Pablo Krueger congregational Surgical History Cholecystectomy (~2007) Appendectomy (~1969) (L)Lingulectomy(Segmentectomy) (11/11/14) Family History Mother Stroke Father Stroke Sister Diabetes Social History Smoking/Tobacco Use Status: Former Tobacco Use Tobacco: How many years used: 50 Smoking risk assessment performed?: Yes Alcohol Intake: never Drug use: Never Substance use type: does not use Counseling provided: other (N/A) Adopted: No Caregiver/Support person: No Foster care: No Household members: none Housing: house Number of Children: 0 number of grandchildren: 0 Communication Needs: Hard of Hearing Education Level: high school current occupation: retired Pets and animals: No Sexually active: No Do you think of yourself as: straight/heterosexual Current gender identity: female What is your relationship status?: How often do you talk on the phone with friends or family?: twice per week How often do you get together with friends or relatives?: decline to answer How often do you attend druze or congregational services?: decline to answer Do you belong to any clubs or organized social groups?: yes Panel score (0-1 are the most socially isolated patients): 1 Frequency: 3-4 times per week Special luis needs: No Seatbelt use: always Helmet use: Yes (Declined to answer) Drive 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
[2025-02-20] MEDS: Albuterol/Ipratropium 3 ML UPD VIAL UPD (17:05)
[2025-02-20] MEDS: methylPREDNISolone SUCC 125 MG VIAL IVP (17:05)
[2025-02-20] MEDS: Normal Saline 250 ML 500 ML IV (17:06)
[2025-02-20 17:21] LABS: BE (Venous) 3 mmol/L (-2-3); HCO3 (Venous) 29 mmol/L (23-28); O2 Sat (Venous) 64 %; TCO2 (Venous) 26 mmol/L (24-29); pCO2 (Venous) 50 mmHg (41-51); pO2 (Venous) 35 mmHg
[2025-02-20 17:28] LABS: Abs Immature Grans 0.03 10^3/uL (0.0-0.06); HCT 38.6 % (36.0-46.0); HGB 12.9 g/dL (11.2-15.7); Immature Grans % 0.3 %; MCH 29.3 pg (27.0-33.0); MCHC 33.4 % (32.0-36.0); MCV 88 fL (80-95); MPV 12.3 fL (8.0-11.0); Platelet Count 131 10^3/uL (130-400); RBC 4.41 10^6/uL (3.93-5.22); RDW 12.5 % (11.7-14.6); RDW-SD 40.0 fL; WBC 9.51 10^3/uL (4.4-10.8)
[2025-02-20 17:42] LABS: Magnesium 1.6 mg/dL (1.6-2.6)
[2025-02-20 17:43] LABS: Troponin I 6 ng/L (<35)
[2025-02-20 17:44] LABS: ALT 22 U/L (10-49); AST 30 U/L (<34); Albumin 4.6 g/dL (3.4-5.0); Alkaline Phosphatase 63 U/L (46-116); Anion Gap 10.4 mmol/L (3-11); BUN 21 mg/dL (9-23); Bilirubin, Total 0.60 mg/dL (0.2-1.2); CO2 27.6 mmol/L (20.0-31.0); Calcium 9.3 mg/dL (8.3-10.6); Chloride 100 mmol/L (98-107); Glucose 131 mg/dL (74-106); Potassium 3.6 mmol/L (3.5-5.1); Sodium 138 mmol/L (136-145); Total Protein 7.8 g/dL (5.7-8.2)
[2025-02-20 18:44] LABS: Troponin I 7 ng/L (<35)
[2025-02-20] MEDS: Doxycycline Hyclate 100 MG CAP PO (18:54)
[2025-02-20 19:01] VITALS: BP 136/77; PULSE 73; RESP 16; O2SAT 96
== END 2025-02-20 19:03 | disposition home or self-care (01) ==
PROVIDERS: Emergency Provider Emergency Medicine; PCP Family Medicine
DX: J45.909 Unspecified asthma, uncomplicated (principal); R06.02 Shortness of breath
CPT/HCPCS: 99284; 99285; 94640; 36415; 96374; 80053; 82805; 93005; 96361; 71046; 83735; 83880; 84484; 85025; 85730; 93010; J2919; J7620

== ENCOUNTER 2025-03-13 02:00 | Outpatient (CLI) | payer MEDICARE, OTHER, SELFPAY ==
[2025-03-13] MEDS: Inhaler, Assist Device 1 EACH MC (11:18)
--- NOTE | 2025-03-13 11:19 | W.PFT ---
Date of service: 03/13/25 Time of Service: 09:57 Pulmonary Function Test Result Indications: Pulmonary fibrosis Impression 1. Good patient effort was noted. ATS standards for reproducibility were met. 2. Spirometry showed modearte obstructive lung disease with an FEV1 of 73% (1.19 L) 3. Following the administration of a bronchodilator there was not a significant response 4. The FVC was mildly reduced at 77%, which is suggestive of restriction. Consider full PFT/lung volume testing to further evaluate 5. DLCO was not completed - patient declined
[2025-03-13] MEDS: Levalbuterol HFA 15 GM INH 4 PUFF IH (11:22)
== END 2025-03-13 02:01 | disposition home or self-care (01) ==
LOC: RT 02:00
PROVIDERS: PCP Family Medicine; Visit Provider Family Medicine
DX: J84.10 Pulmonary fibrosis, unspecified (principal); J44.9 Chronic obstructive pulmonary disease, unspecified
CPT/HCPCS: 94060